=== PATIENT | male | born 1935 | race Caucasian/White ===

== ENCOUNTER → 2016-03-02 | Outpatient (CLI) | payer MEDICARE, OTHER | END | disposition home or self-care (01) | LOC: LABWHC1 09:20 | PROVIDERS: ATTEND Internal Medicine Cardiovascular Disease | DX: E78.5 Hyperlipidemia, unspecified (principal); I25.10 Atherosclerotic heart disease of native coronary artery without angina pectoris | CPT/HCPCS: 36415; 80061; 84439; 84443; 84450; 84460 ==

== ENCOUNTER → 2016-04-22 | Outpatient (CLI) | payer MEDICARE, OTHER ==
[2016-04-22 11:28] LABS: Bilirubin, Delta 0.5 mg/dL (0.0-0.2); Total Bilirubin 1.4 mg/dL (0.2-1.3)
== END | disposition home or self-care (01) ==
LOC: LABWHC1 10:03
PROVIDERS: ATTEND Internal Medicine Cardiovascular Disease
DX: E78.00 Pure hypercholesterolemia, unspecified (principal); R00.1 Bradycardia, unspecified
CPT/HCPCS: 36415; 80061; 80076; 84439; 84443

== ENCOUNTER → 2018-05-04 | Outpatient (CLI) | payer OTHER ==
--- NOTE | 2018-05-04 11:48 | US ---
EXAMINATION TYPE: US thyroid st tissue head/neck DATE OF EXAM: 05/04/2018 COMPARISON: NONE CLINICAL HISTORY: 82-year-old male Hypothyroidism E03.9. TECHNIQUE: Multiple sonographic images of the thyroid gland were obtained. FINDINGS: GLAND SIZE: Right Lobe: 4.4 x 1.9 x 1.0 cm Overall Parenchyma: homogenous Left Lobe: 2.7 x 0.9 x 1.0 cm Overall Parenchyma: homogeneous Isthmus Thickness: 0.8 cm NODULES RIGHT: # of nodules measured on right: 1 1. 1.4 X 1.5 x 1.4 cm heterogeneous solid nodule at the mid pole with well-defined margins. Some p unctate calcifications are present within. This nodule is wider than tall and shows intranodular vasc ularity. LEFT: # of nodules measured on left: 0 ISTHMUS: # of nodules measured in the isthmus: 0 Bilateral neck scanned, no evidence of lymphadenopathy. [employer] notes: Thyroid located inferiorly, difficult to visualized in sagittal plane. IMPRESSION: Solid 1.5 cm nodule in the right lobe has some associated microcalcifications and vascularity. FNA ca n be performed.
== END ==
LOC: RADUSWWP 10:25
DX: E04.1 Nontoxic single thyroid nodule (principal)
CPT/HCPCS: 76536

== ENCOUNTER → 2018-06-15 | Outpatient (CLI) | payer MEDICARE, OTHER ==
[2018-06-15 15:45] LABS: T4, Free (Free Thyroxine) 0.8 ng/dL (0.80-1.80)
== END | disposition home or self-care (01) ==
LOC: LABWHC1 09:19
PROVIDERS: ATTEND Internal Medicine Endocrinology, Diabetes & Metabolism
DX: E04.1 Nontoxic single thyroid nodule (principal)
CPT/HCPCS: 36415; 84439; 84443

== ENCOUNTER → 2018-08-09 | Outpatient (CLI) | payer MEDICARE, OTHER | END | disposition home or self-care (01) | LOC: LABWHC1 14:03 | PROVIDERS: ATTEND Internal Medicine Endocrinology, Diabetes & Metabolism | DX: E03.8 Other specified hypothyroidism (principal); R94.6 Abnormal results of thyroid function studies | CPT/HCPCS: 36415; 84443 ==

== ENCOUNTER → 2018-09-15 | Outpatient (CLI) | payer MEDICARE, OTHER | END | disposition home or self-care (01) | LOC: LABWHC1 10:44 | PROVIDERS: ATTEND Internal Medicine Endocrinology, Diabetes & Metabolism | DX: E03.8 Other specified hypothyroidism (principal) | CPT/HCPCS: 36415; 84443 ==

== ENCOUNTER → 2019-03-14 | Outpatient (CLI) | payer MEDICARE, OTHER ==
--- NOTE | 2019-03-14 16:35 | US ---
EXAMINATION TYPE: US thyroid st tissue head/neck DATE OF EXAM: 03/14/2019 COMPARISON: US 05/04/2018 CLINICAL HISTORY: 83-year-old male E04.1 NONTOXIC SINGLE THYROID NODULES. TECHNIQUE: Multiple sonographic images of the thyroid gland are obtained. 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 1.3 X 0.7 x 0.9 cm mixed, primarily solid nodule at the mid pole with well-defined margins. This nodule is wider than tall. Prior size: 1.5 x 1.4 x 1.4 cm LEFT: # of nodules measured on left: 0 ISTHMUS: # of nodules measured in the isthmus: 0 Bilateral neck scanned, no evidence of lymphadenopathy. IMPRESSION: Small heterogeneous gland, possible goiter or chronic hypothyroidism. A solitary 1.3 cm nodule right mid pole is stable to slightly smaller.
== END | disposition home or self-care (01) ==
LOC: RADUSWWP 13:35
PROVIDERS: ATTEND Internal Medicine Endocrinology, Diabetes & Metabolism
DX: E04.1 Nontoxic single thyroid nodule (principal); E03.8 Other specified hypothyroidism
CPT/HCPCS: 76536; 84443

== ENCOUNTER 2021-03-30 12:28 | Inpatient (IN) | payer MEDICARE, OTHER ==
[2021-03-30] MEDS ORDERED: ASPIRIN 81 MG PO STA (12:39)
[2021-03-30] MEDS ORDERED: SODIUM CHLORIDE 0.9% 1,000 ML IV STA (12:39)
--- NOTE | 2021-03-30 12:42 | ED ---
General Adult HPI - General Stated complaint: Chest Pain Time Seen by Provider: 03/30/21 12:35 Source: patient, RN notes reviewed Mode of arrival: EMS Limitations: no limitations - History of Present Illness Initial comments: Patient is a pleasant 85-year-old male presenting to the emergency department with chest discomfort. Onset was prior to arrival. Patient is a poor historian and very hard of hearing. Patient admits symptoms improved with nitroglycerin by EMS. Discomfort is minimal at this time. Discomfort is somewhat similar to previous heart problems. Patient has difficulty describing type of discomfort he has. No radiation. No associated dyspnea, nausea, or diaphoresis. EMS did have concerns for bradycardia and hypotension following nitroglycerin and did provide atropine and fluid bolus. - Related Data Home Medications Medication Instructions Recorded Confirmed Metoprolol Tartrate [Lopressor] 50 mg PO BID 12/13/15 12/13/15 Pravastatin Sodium [Pravachol] 40 mg PO HS 12/13/15 12/13/15 amLODIPine [Norvasc] 10 mg PO DAILY 12/13/15 12/13/15 lisinopriL [Zestril] 20 mg PO DAILY 12/13/15 12/13/15 Previous Rx's Medication Instructions Recorded Amiodarone [Cordarone] 400 mg PO BID #60 tab 12/17/15 Aspirin 81 mg PO DAILY #30 chew 12/17/15 Atorvastatin [Lipitor] 80 mg PO DAILY #30 tab 12/17/15 Clopidogrel [Plavix] 75 mg PO DAILY #30 tab 12/17/15 Nitroglycerin Sl Tabs [Nitrostat] 0.4 mg SUBLINGUAL Q5M PRN #25 tab 12/17/15 Spironolactone [Aldactone] 25 mg PO DAILY #30 tab 12/17/15 Allergies Allergy/AdvReac Type Severity Reaction Status Date / Time No Known Allergies Allergy Verified 03/30/21 12:42 Review of Systems ROS Statement: Those systems with pertinent positive or pertinent negative responses have been documented in the HPI. ROS Other: All systems not noted in ROS Statement are negative. Constitutional: Denies: fever Eyes: Denies: eye pain ENT: Denies: ear pain Respiratory: Denies: cough, dyspnea Cardiovascular: Reports: as per HPI, chest pain Endocrine: Denies: fatigue Gastrointestinal: Denies: abdominal pain Genitourinary: Denies: dysuria Musculoskeletal: Denies: back pain Skin: Denies: rash Neurological: Denies: weakness Past Medical History Past Medical History: Coronary Artery Disease (CAD), Hyperlipidemia, Hypertensio n Additional Past Medical History / Comment(s): Diverticulosis, benign colon polyp removed, nephrolithiasis-has passed stones on his own, bilateral tinnitis. Last Myocardial Infarction Date:: 1994 History of Any Multi-Drug Resistant Organisms: None Reported Past Surgical History: Coronary Bypass/CABG Additional Past Surgical History / Comment(s): 2 vessel CABG Past Anesthesia/Blood Transfusion Reactions: No Reported Reaction Past Psychological History: No Psychological Hx Reported Past Alcohol Use History: Occasional Past Drug Use History: None Reported - Past Family History Father Family Medical History: Myocardial Infarction (SD) Additional Family Medical History / Comment(s): Father of a SD at an "early age" but age is unknown. Mother Family Medical History: Dementia General Exam Limitations: no limitations General appearance: alert, in no apparent distress Head exam: Present: normocephalic Eye exam: Present: normal appearance Neck exam: Present: normal inspection Respiratory exam: Present: normal lung sounds bilaterally. Absent: chest wall tenderness Cardiovascular Exam: Present: regular rate, normal rhythm, normal heart sounds Expanded Peripheral pulses: 2+: Radial (R), Radial (L), Posterior Tibialis (R), Posterior Tibialis (L) GI/Abdominal exam: Present: soft. Absent: tenderness Extremities exam: Present: normal inspection. Absent: pedal edema, calf tendern ess Neurological exam: Present: alert Psychiatric exam: Present: normal affect, normal mood Skin exam: Present: normal color Course Vital Signs 03/30/21 12:32 Temperature 97.8 F Pulse Rate 64 Respiratory 16 Rate Blood Pressure 94/58 O2 Sat by Pulse 99 Oximetry EKG Findings - EKG Comments: EKG Findings:: Sinus rhythm with rate of 64. RI 118. Left axis. QRS 114. QT 450. QTC 459. Incomplete right bundle-branch block. No acute ST change. Medical Decision Making - Medical Decision Making Patient reevaluated and resting comfortably in bed. Patient and family updated on results and plan. Case was discussed Dr. whitlock who did evaluate patient and will admit covering for sd - Lab Data Result diagrams: 03/30/21 12:47 03/30/21 12:47 Lab Results 03/30/21 03/30/2103/30/22 Range/Units 12:47 12:47 12:47 WBC 9.2 (3.8-10.6) k/uL RBC 3.92 L (4.30-5.90) m/uL Hgb 13.2 (13.0-17.5) gm/dL Hct 38.3 L (39.0-53.0) % MCV 97.9 (80.0-100.0) fL MCH 33.8 (25.0-35.0) pg MCHC 34.5 (31.0-37.0) g/dL RDW 12.4 (11.5-15.5) % Plt Count 157 (150-450) k/uL MPV 8.6 Neutrophils % 88 % Lymphocytes % 6 % Monocytes % 4 % Eosinophils % 1 % Basophils % 1 % Neutrophils # 8.0 H (1.3-7.7) k/uL Lymphocytes # 0.5 L (1.0-4.8) k/uL Monocytes # 0.4 (0-1.0) k/uL Eosinophils # 0.1 (0-0.7) k/uL Basophils # 0.1 (0-0.2) k/uL PT 11.7 (9.0-12.0) sec INR 1.1 (<1.2) APTT 25.0 (22.0-30.0) sec Sodium 134 L (137-145) mmol/L Potassium 4.5 (3.5-5.1) mmol/L Chloride 102 (98-107) mmol/L Carbon Dioxide 24 (22-30) mmol/L Anion Gap 8 mmol/L BUN 23 H (9-20) mg/dL Creatinine 1.48 H (0.66-1.25) mg/dL Est GFR (CKD-EPI)AfAm 50 (>60 ml/min/1.73 sqM) Est GFR (CKD-EPI)NonAf 43 (>60 ml/min/1.73 sqM) Glucose 107 H (74-99) mg/dL Calcium 8.3 L (8.4-10.2) mg/dL Magnesium 1.9 (1.6-2.3) mg/dL Total Bilirubin 1.6 H (0.2-1.3) mg/dL AST 62 H (17-59) U/L ALT 35 (4-49) U/L Alkaline Phosphatase 67 (38-126) U/L Troponin I (0.000-0.034) ng/mL Total Protein 5.9 L (6.3-8.2) g/dL Albumin 3.4 L (3.5-5.0) g/dL 03/30/21 Range/Units 12:47 WBC (3.8-10.6) k/uL RBC (4.30-5.90) m/uL Hgb (13.0-17.5) gm/dL Hct (39.0-53.0) % MCV (80.0-100.0) fL MCH (25.0-35.0) pg MCHC (31.0-37.0) g/dL RDW (11.5-15.5) % Plt Count (150-450) k/uL MPV Neutrophils % % Lymphocytes % % Monocytes % % Eosinophils % % Basophils % % Neutrophils # (1.3-7.7) k/uL Lymphocytes # (1.0-4.8) k/uL Monocytes # (0-1.0) k/uL Eosinophils # (0-0.7) k/uL Basophils # (0-0.2) k/uL PT (9.0-12.0) sec INR (<1.2) APTT (22.0-30.0) sec Sodium (137-145) mmol/L Potassium (3.5-5.1) mmol/L Chloride (98-107) mmol/L Carbon Dioxide (22-30) mmol/L Anion Gap mmol/L BUN (9-20) mg/dL Creatinine (0.66-1.25) mg/dL Est GFR (CKD-EPI)AfAm (>60 ml/min/1.73 sqM) Est GFR (CKD-EPI)NonAf (>60 ml/min/1.73 sqM) Glucose (74-99) mg/dL Calcium (8.4-10.2) mg/dL Magnesium (1.6-2.3) mg/dL Total Bilirubin (0.2-1.3) mg/dL AST (17-59) U/L ALT (4-49) U/L Alkaline Phosphatase (38-126) U/L Troponin I <0.012 (0.000-0.034) ng/mL Total Protein (6.3-8.2) g/dL Albumin (3.5-5.0) g/dL - Radiology Data Radiology results: image reviewed Disposition Clinical Impression: Chest pain Disposition: ADMITTED IP TO THIS HOSP Is patient prescribed a controlled substance at d/c from ED?: No Referrals: [facility],Clinic [Primary Care Provider] - 1-2 days Decision Time: 13:54
[2021-03-30 12:59] LABS: Basophils # (A) 0.1 k/uL (0-0.2); Basophils % (A) 1 %; Eosinophils # (A) 0.1 k/uL (0-0.7); Eosinophils % (A) 1 %; HCT 38.3 % (39.0-53.0); HGB 13.2 gm/dL (13.0-17.5); Lymphocytes # (A) 0.5 k/uL (1.0-4.8); Lymphocytes % (A) 6 %; MCH 33.8 pg (25.0-35.0); MCHC 34.5 g/dL (31.0-37.0); MCV 97.9 fL (80.0-100.0); Mean Platelet Volume 8.6; Monocytes # (A) 0.4 k/uL (0-1.0); Monocytes % (A) 4 %; Neutrophils % (A) 88 %; Platelet Count 157 k/uL (150-450); RBC 3.92 m/uL (4.30-5.90); RDW 12.4 % (11.5-15.5); WBC 9.2 k/uL (3.8-10.6)
[2021-03-30 13:07] LABS: INR 1.1 (<1.2); Prothrombin Time 11.7 sec (9.0-12.0)
[2021-03-30 13:14] LABS: Albumin 3.4 g/dL (3.5-5.0); Calcium 8.3 mg/dL (8.4-10.2); Magnesium 1.9 mg/dL (1.6-2.3); Potassium 4.5 mmol/L (3.5-5.1); Total Bilirubin 1.6 mg/dL (0.2-1.3); Total Protein 5.9 g/dL (6.3-8.2)
[2021-03-30] MEDS ORDERED: NITROGLYCERIN SL TABS 0.4 MG TAB SUBLINGUAL PRN (13:55)
--- NOTE | 2021-03-30 14:00 | XR ---
EXAMINATION TYPE: XR chest 2V DATE OF EXAM: 03/30/2021 COMPARISON: 12/15/2015 HISTORY: 85-year-old male with chest pain TECHNIQUE: AP and lateral views FINDINGS: Low lung volumes and crowded vascular markings. Heart mildly enlarged. Median sternotomy wires are pr esent. Interstitial and vascular prominence. Atherosclerotic arch calcifications. No sizable pleural effusion. IMPRESSION: Hypoventilatory changes. Increased interstitial densities. Correlate to exclude mild pulmonary vascul ar congestion versus bronchitis or atypical pneumonia.
[2021-03-30] MEDS ORDERED: METOPROLOL TARTRATE 25 MG TAB PO PRN (18:24)
--- NOTE | 2021-03-30 18:56 | P.HPIM ---
History of Present Illness This is a pleasant 85 years old male with past medical history of Coronary Artery Disease , Hyperlipidemia, Hypertension, Diverticulosis, benign colon polyp removed, nephrolithiasis-has passed stones on his own, bilateral tinnitis. Patient is poor historian and information was obtained from the at bedside As per patient has significant history of dementia which was really worse over the last 2 years as she describes. A he came approached her stated that he has pain referring to his chest and epigastric area, as per it is not known for him to complain about pain so she got concerned and brought him to the emergency room He was lying in bed, answers with 1 or 2 words with low voice, he knows he is in the hospital at [place] but he could not tell the name of the hospital. He could not tell the date or the year or the name of the president, as per that his baseline. He hardly couldn't provide information however when we asked him me and he confirmed gas he doesn't have chest pain now. He denies any other symptoms, no dyspnea, no diarrhea or dysuria or fever. Patient Vitas looks stable CBC is unremarkable INR is normal at 1.1 Creatinine is elevated at 1.4, baseline is unknown, last creatinine was 0.7 and 2016. Sodium 134, potassium 4.5, bilirubin 1.6, AST slightly high at 62, normal ALT of 35. If less than 0.012 3. Coronavirus not detected. Chest x-ray: Hypoventilatory changes. Increased interstitial densities. Correlate to exclude my pulmonary vascular congestion versus bronchitis or atypical pneumonia Review of Systems Review of systems CONSTITUTIONAL: No fever, no malaise, no fatigue. HEENT: No recent visual problems or hearing problems. Denied any sore throat. CARDIOVASCULAR: No orthopnea, PND, no palpitations, no syncope. PULMONARY: No shortness of breath, no cough, no hemoptysis. GASTROINTESTINAL: No diarrhea, no nausea, no vomiting, no abdominal pain. Normoactive bowel sounds. NEUROLOGICAL: No headaches, no weakness, no numbness. HEMATOLOGICAL: Denies any bleeding or petechiae. GENITOURINARY: Denies any burning micturition, frequency, or urgency. MUSCULOSKELETAL/RHEUMATOLOGICAL: Denies any joint pain, swelling, or any muscle pain. ENDOCRINE: Denies any polyuria or polydipsia. Past Medical History Past Medical History: Coronary Artery Disease (CAD), Hyperlipidemia, Hypertension Additional Past Medical History / Comment(s): Diverticulosis, benign colon polyp removed, nephrolithiasis-has passed stones on his own, bilateral tinnitis. Last Myocardial Infarction Date:: 1994 History of Any Multi-Drug Resistant Organisms: None Reported Past Surgical History: Coronary Bypass/CABG Additional Past Surgical History / Comment(s): 2 vessel CABG Past Anesthesia/Blood Transfusion Reactions: No Reported Reaction Past Psychological History: No Psychological Hx Reported Past Alcohol Use History: Occasional Past Drug Use History: None Reported - Past Family History Father Family Medical History: Myocardial Infarction (NV) Additional Family Medical History / Comment(s): Father of a NV at an "early age" but age is unknown. Mother Family Medical History: Dementia Medications and Allergies Home Medications Medication Instructions Recorded Confirmed Type lisinopriL [Zestril] 20 mg PO BID 12/13/15 03/30/21 History Spironolactone [Aldactone] 25 mg PO DAILY #30 tab 12/17/15 03/30/21 Rx Amiodarone [Cordarone] 100 mg PO DAILY 03/30/21 03/30/21 History Apixaban [Eliquis] 5 mg PO BID 03/30/21 03/30/21 History Aspirin EC [Ecotrin Low Dose] 81 mg PO DAILY 03/30/21 03/30/21 History Atorvastatin [Lipitor] 40 mg PO HS 03/30/21 03/30/21 History Escitalopram Oxalate [Lexapro] 10 mg PO DAILY 03/30/21 03/30/21 History Furosemide [Lasix] 20 mg PO BID@0900,1400 03/30/21 03/30/21 History Levothyroxine Sodium [Synthroid] 125 mcg PO [id number] 03/30/21 03/30/21 History Melatonin 5 mg PO HS 03/30/21 03/30/21 History Metoprolol Tartrate [Lopressor] 25 mg PO BID PRN 03/30/21 03/30/21 History Multivitamins, Thera [Multivitamin 1 tab PO DAILY 03/30/21 03/30/21 History (formulary)] Nitroglycerin Sl Tabs [Nitrostat] 0.4 mg SL Q5M PRN 03/30/21 03/30/21 History [place]-3 Fatty Acids/Fish Oil [Fish 1 cap PO DAILY 03/30/21 03/30/21 History Oil 1,000 mg Softgel] Allergies Allergy/AdvReac Type Severity Reaction Status Date / Time No Known Allergies Allergy Verified 03/30/21 14:48 Physical Exam Vitals: Vital Signs Temp Pulse Resp BP Pulse Ox 03/30/21 12:32 97.8 F 64 16 94/58 99 Intake and Output 03/30/21 03/30/21 03/30/21 06:59 14:59 22:59 Other: Weight 90 kg -GENERAL: The patient is alert and oriented x1 partially to place. This is his baseline as per ,, not in any acute distress. Well developed, well nourished. HEENT: Pupils are round and equally reacting to light. EOMI. No scleral icterus. No conjunctival pallor. Normocephalic, atraumatic. No pharyngeal erythema. No thyromegaly. CARDIOVASCULAR: S1 and S2 present. No murmurs, rubs, or gallops. PULMONARY: Chest is clear to auscultation, no wheezing or crackles. ABDOMEN: Soft, nontender, nondistended, normoactive bowel sounds. No palpable organomegaly. MUSCULOSKELETAL: No joint swelling or deformity. EXTREMITIES: No cyanosis, clubbing, or pedal edema. NEUROLOGICAL: Gross neurological examination did not reveal any focal deficits. SKIN: No rashes. no petechiae. Results CBC & Chem 7: 03/30/21 12:47 03/30/21 12:47 Labs: Abnormal Lab Results - Last 24 Hours (Table) 03/30/21 03/30/21 Range/Units 12:47 12:47 RBC 3.92 L (4.30-5.90) m/uL Hct 38.3 L (39.0-53.0) % Neutrophils # 8.0 H (1.3-7.7) k/uL Lymphocytes # 0.5 L (1.0-4.8) k/uL Sodium 134 L (137-145) mmol/L BUN 23 H (9-20) mg/dL Creatinine 1.48 H (0.66-1.25) mg/dL Glucose 107 H (74-99) mg/dL Calcium 8.3 L (8.4-10.2) mg/dL Total Bilirubin 1.6 H (0.2-1.3) mg/dL AST 62 H (17-59) U/L Total Protein 5.9 L (6.3-8.2) g/dL Albumin 3.4 L (3.5-5.0) g/dL Assessment and Plan Assessment: Chest pain, rule out cardiac causes Elevated creatinine unknown baseline, could be acute versus chronic kidney disease Altered mental status, ongoing for 2 years as per . 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 Continue same treatment. Continue with symptomatic treatment. Resume home medication. Monitor lytes and vitals. DVT and GI prophylaxis. Further recommendations as per clinical course of the patient DVT prophylaxis: Subcutaneous heparin GI Prophylaxis: Pepcid PT/OT: Pending Prognosis is guarded
[2021-03-30] MEDS ORDERED: ACETAMINOPHEN TAB 325 MG TAB PO PRN (19:55)
[2021-03-30] MEDS: TAMSULOSIN 0.4 MG CAP.ER.24H PO SCH (20:04)
[2021-03-30] MEDS ORDERED: lisinopriL 20 MG TAB PO SCH (21:00)
[2021-03-30] MEDS: APIXABAN 5 MG TAB PO SCH (21:02)
[2021-03-30] MEDS: MELATONIN 5 MG TABLET PO SCH (21:02)
[2021-03-30] MEDS: ATORVASTATIN 40 MG TAB PO SCH (21:02)
[2021-03-31 00:02] LABS: Appearance,Urine Cloudy (Clear); Bacteria,Urine Rare /hpf; Bilirubin,Urine Negative (Negative); Blood,Urine Small (Negative); Color,Urine Dark Yellow; Glucose,Urine (UA) Negative (Negative); Hyaline Casts,Urine 5 /lpf (0-2); Ketones,Urine Negative (Negative); Leukocyte Esterase,Urine Trace (Negative); Mucus,Urine Rare /hpf; Nitrite,Urine Negative (Negative); Protein,Urine Trace (Negative); RBC,Urine 8 /hpf (0-5); Specific Gravity,Urine 1.017 (1.001-1.035); Squamous Epithelial Cell,Urine 1 /hpf (0-4); WBC,Urine 8 /hpf (0-5)
[2021-03-31] MEDS: LEVOTHYROXINE 125 MCG TAB PO SCH (06:03)
[2021-03-31 06:21] LABS: HCT 35.8 % (39.0-53.0); HGB 12.4 gm/dL (13.0-17.5); MCHC 34.6 g/dL (31.0-37.0); MCV 98.2 fL (80.0-100.0); Mean Platelet Volume 8.6; Platelet Count 118 k/uL (150-450); RBC 3.64 m/uL (4.30-5.90); RDW 12.6 % (11.5-15.5); WBC 14.3 k/uL (3.8-10.6)
[2021-03-31 06:55] LABS: Band Neutrophils % 24 %; Lymphocytes # (M) 0.43 k/uL (1.0-4.8); Monocytes # (M) 0.57 k/uL (0-1.0); Neutrophils % (M) 69 %; Nucleated Red Blood Cells 0 /100 WBC (0-0)
[2021-03-31 06:56] LABS: Total Cells Counted 200
[2021-03-31 06:57] LABS: Toxic Granulation Present
[2021-03-31] MEDS ORDERED: SODIUM CHLORIDE 0.9% 500 ML 500 ML IV ONE (07:09)
[2021-03-31] MEDS ORDERED: SODIUM CHLORIDE 0.9% 500 ML 250 ML IV ONE (07:16)
[2021-03-31] MEDS: SODIUM CHLORIDE 0.9% 1,000 ML IV SCH ×2 (08:05→20:07)
[2021-03-31] MEDS: APIXABAN 5 MG TAB PO SCH (08:06)
[2021-03-31] MEDS: MULTIVITAMINS, THERA 1 EACH TAB PO SCH (08:06)
[2021-03-31] MEDS: AMIODARONE 100 MG TAB PO SCH (08:06)
[2021-03-31] MEDS: ESCITALOPRAM 10 MG TAB PO SCH (08:06)
[2021-03-31] MEDS ORDERED: ASPIRIN 81 MG PO SCH (09:00)
[2021-03-31] MEDS ORDERED: ASPIRIN 325 MG TAB PO SCH (09:00)
[2021-03-31] MEDS ORDERED: DOXYCYCLINE 100 MG in SODIUM CHLORIDE 0.9% 100 ML IVPB SCH (09:00)
[2021-03-31] MEDS ORDERED: SPIRONOLACTONE 25 MG TAB PO SCH (09:00)
[2021-03-31] MEDS ORDERED: NON FORMULARY DRUG (Omega-3 Fatty Acids/Fish Oil [Fish Oil 1,000 Mg Softgel] 1 EACH Capsul PO SCH (09:00)
[2021-03-31] MEDS: FUROSEMIDE 20 MG TAB PO SCH ×2 (09:41→15:10)
[2021-03-31] MEDS ORDERED: CEFEPIME 2 GM in SODIUM CHLORIDE 0.9% 100 ML IVPB SCH (09:45)
--- NOTE | 2021-03-31 09:55 | P.CRDCN ---
History of Present Illness History of present illness: HISTORY OF PRESENTING ILLNESS This is a pleasant 85-year-old male past medical history significant for coronary artery disease s/p CABG (AUGUSTINE to LAD and SVG to diagonal) in 1994, PCI to mid D1 and PCI of SVG to D1 in 2016, hypertension, dyslipidemia, type 2 diabetes, former nicotine dependence, dementia, paroxysmal atrial fibrillation on Eliquis, hypothyroidism. He follows in the office with Dr. Teixeira. We have been asked to see in consultation for chest pain. Patient's at [facility]. Patient unable to communicate why he is in the hospital. Information obtained from patient's . Patient's states yesterday patient was complaining of epigastric pain radiating to his upper abdomen. He also had nausea with an episode of emesis. In addition, she has noticed he has been having symptoms of increased confusion, productive cough, chills, some increased shortness of breath with activity. She states about 10 days ago patient had an episode of 3 days of chills at home. Here in hospital patient febrile temperature 101.3 She denies any patient complains of lightheadedness, dizziness, palpitations, syncope or near syncope, loss of consciousness, orthopnea or PND, bleeding in urine or stool. DIAGNOSTICS EKG reveals sinus rhythm, heart rate 64, incomplete right bundle branch block, no acute ST ST-T wave abnormalities. Telemetry tracings indicate sinus mechanism Chest xray increased interstitial densities. Laboratory reviewed, WBC 14.3, hemoglobin 12.4, platelets 118, UA positive for UTI, troponin negative 3, COVID-19 negative, sodium 134, potassium 4.5, BUN 23, serum creatinine 1.4, proBNP 522 Most recent echocardiogram 01/2018 revealed an EF 55%, mild mitral regurgitation, mild tricuspid regurgitation Current cardiac medications include lisinopril 20 mg twice a day, spironolactone 25 mg daily, metoprolol tartrate 25 mg twice a day when necessary, Lasix 20 mg twice a day, aspirin 81 mg daily, Eliquis 5 mg twice a day, amiodarone 100 mg daily REVIEW OF SYSTEMS At the time of my exam: CONSTITUTIONAL: Denies fever or chills. CARDIOVASCULAR: Denies chest pain, shortness of breath, orthopnea, PND or palpitations. RESPIRATORY: Denies cough. GASTROINTESTINAL: Denies abdominal pain, diarrhea, constipation, nausea or vomiting. MUSCULOSKELETAL: Denies myalgias. NEUROLOGIC: Denies numbness, tingling, headacbe or weakness. ENDOCRINE: Denies fatigue, weight change, polydipsia or polyurina. GENITOURINARY: Denies burning, hematuria or urgency with micturation. HEMATOLOGIC: Denies history of anemia or bleeding. PHYSICAL EXAMINATION Blood pressure 94/39, heart rate 55, afebrile, oxygen saturation 77% on room air CONSTITUTIONAL: No apparent distress. HEENT: Head is normocephalic. Pupils are equal, round. Sclerae anicteric. Mucous membranes of the mouth are moist. No JVD. CHEST EXAMINATION: Lungs are diminished in the bases to auscultation. No chest wall tenderness is noted on palpation or with deep breathing. HEART EXAMINATION: Regular rate and rhythm. S1, S2 heard. Systolic ejection murmur ABDOMEN: Soft, nontender. Positive bowel sounds. EXTREMITIES: 2+ peripheral pulses, trace bilateral lower extremity edema and no calf tenderness. NEUROLOGIC EXAMINATION: Patient is awake, alert. not oriented ASSESSMENT Epigastric Abdominal pain Fever, Cough, Chills Nausea, Vomiting Acute Kidney Injury Leukocytosis Increased altered mental status Urinary Tract infection History of dementia Coronary artery disease s/p CABG (AUGUSTINE to LAD and SVG to diagonal) in 1994, PCI to mid D1 and PCI of SVG to D1 in 2016 History of hypertension Hypotension Dyslipidemia Type 2 diabetes Former nicotine dependence Paroxysmal atrial fibrillation on Eliquis Hypothyroidism PLAN From a cardiology perspective, patient without chest pain. No further inpatient workup at this time. Pain has been complaining of symptoms of epigastric pain, abdominal pain. Patient also with symptoms of increased confusion per spouse, febrile here, productive cough, chills. Patient's workup revealed acute kidney injury, leukocytosis. Ok to hold lasix and lisinopril due to hypotension and acute kidney. Continue Eliquis, amiodarone and statin. Recommend infectious workup per primary. We will follow the patient as needed. Please reach out with any further questions or concerns Nurse practitioner note has been reviewed by physician. Signing provider agrees with the documented findings, assessment, and plan of care. Past Medical History Past Medical History: Coronary Artery Disease (CAD), Hyperlipidemia, Hypertension Additional Past Medical History / Comment(s): Diverticulosis, benign colon polyp removed, nephrolithiasis-has passed stones on his own, bilateral tinnitis. Last Myocardial Infarction Date:: 1994 History of Any Multi-Drug Resistant Organisms: None Reported Past Surgical History: Coronary Bypass/CABG Additional Past Surgical History / Comment(s): 2 vessel CABG Past Anesthesia/Blood Transfusion Reactions: No Reported Reaction Past Psychological History: No Psychological Hx Reported Past Alcohol Use History: Occasional Past Drug Use History: None Reported - Past Family History Father Family Medical History: Myocardial Infarction (NM) Additional Family Medical History / Comment(s): Father of a NM at an "early age" but age is unknown. Mother Family Medical History: Dementia Medications and Allergies Home Medications Medication Instructions Recorded Confirmed Type lisinopriL [Zestril] 20 mg PO BID 12/13/15 03/30/21 History Spironolactone [Aldactone] 25 mg PO DAILY #30 tab 12/17/15 03/30/21 Rx Amiodarone [Cordarone] 100 mg PO DAILY 03/30/21 03/30/21 History Apixaban [Eliquis] 5 mg PO BID 03/30/21 03/30/21 History Aspirin EC [Ecotrin Low Dose] 81 mg PO DAILY 03/30/21 03/30/21 History Atorvastatin [Lipitor] 40 mg PO HS 03/30/21 03/30/21 History Escitalopram Oxalate [Lexapro] 10 mg PO DAILY 03/30/21 03/30/21 History Furosemide [Lasix] 20 mg PO BID@0900,1400 03/30/21 03/30/21 History Levothyroxine Sodium [Synthroid] 125 mcg PO MOTUWETHFRSA 03/30/21 03/30/21 History Melatonin 5 mg PO HS 03/30/21 03/30/21 History Metoprolol Tartrate [Lopressor] 25 mg PO BID PRN 03/30/21 03/30/21 History Multivitamins, Thera [Multivitamin 1 tab PO DAILY 03/30/21 03/30/21 History (formulary)] Nitroglycerin Sl Tabs [Nitrostat] 0.4 mg SL Q5M PRN 03/30/21 03/30/21 History [place]-3 Fatty Acids/Fish Oil [Fish 1 cap PO DAILY 03/30/21 03/30/21 History Oil 1,000 mg Softgel] Allergies Allergy/AdvReac Type Severity Reaction Status Date / Time No Known Allergies Allergy Verified 03/30/21 14:48 Physical Exam Vitals: Vital Signs Temp Pulse Pulse Resp BP BP Pulse Ox 03/31/21 07:00 97.6 F 55 L 18 94/39 97 03/31/21 02:10 90/44 03/31/21 00:19 98.1 F 72 17 80/38 95 03/30/21 19:00 101.3 F H 81 17 98/55 93 L 03/30/21 16:51 94 L 03/30/21 16:50 88 16 103/61 94 L 03/30/21 14:42 69 18 115/103 96 03/30/21 13:42 67 16 93/65 96 03/30/21 12:32 97.8 F 64 16 94/58 99 Intake and Output 03/30/21 03/31/21 03/31/21 22:59 06:59 14:59 Intake Total 118 Output Total 400 800 Balance -282 -800 Intake: Oral 118 Output: Urine 400 800 Uretheral (Soni) 400 Other: Voiding Method Indwelling Catheter # Bowel Movements 1 Weight 90 kg Results 03/31/21 06:02 03/30/21 12:47 Cardiac Enzymes 03/30/21 03/30/21 03/30/21 Range/Units 12:47 12:47 15:07 AST 62 H (17-59) U/L Troponin I <0.012 <0.012 (0.000-0.034) ng/mL 03/30/21 Range/Units 17:26 AST (17-59) U/L Troponin I <0.012 (0.000-0.034) ng/mL Coagulation 03/30/21 Range/Units 12:47 PT 11.7 (9.0-12.0) sec APTT 25.0 (22.0-30.0) sec CBC 03/30/21 03/31/21 Range/Units 12:47 06:02 WBC 9.2 14.3 H (3.8-10.6) k/uL RBC 3.92 L 3.64 L (4.30-5.90) m/uL Hgb 13.2 12.4 L (13.0-17.5) gm/dL Hct 38.3 L 35.8 L (39.0-53.0) % Plt Count 157 118 L (150-450) k/uL Comprehensive Metabolic Panel 03/30/21 Range/Units 12:47 Sodium 134 L (137-145) mmol/L Potassium 4.5 (3.5-5.1) mmol/L Chloride 102 (98-107) mmol/L Carbon Dioxide 24 (22-30) mmol/L BUN 23 H (9-20) mg/dL Creatinine 1.48 H (0.66-1.25) mg/dL Glucose 107 H (74-99) mg/dL Calcium 8.3 L (8.4-10.2) mg/dL AST 62 H (17-59) U/L ALT 35 (4-49) U/L Alkaline Phosphatase 67 (38-126) U/L Total Protein 5.9 L (6.3-8.2) g/dL Albumin 3.4 L (3.5-5.0) g/dL Current Medications Generic Name Dose Route Start Last Admin Trade Name Freq PRN Reason Stop Dose Admin Acetaminophen 650 mg 03/30/21 19:55 03/30/21 21:02 Acetaminophen Tab 325 Mg Tab PO 650 mg Q6HR PRN Administration Fever and/ or Pain Amiodarone HCl 100 mg 03/31/21 09:00 Amiodarone 100 Mg Tab PO DAILY CUATE Apixaban 5 mg 03/30/21 21:00 03/30/21 21:02 Apixaban 5 Mg Tab PO 5 mg BID CUATE Administration Protocol Aspirin 81 mg 03/31/21 09:00 Aspirin 81 Mg PO DAILY CUATE Atorvastatin Calcium 40 mg 03/30/21 21:00 03/30/21 21:02 Atorvastatin 40 Mg Tab PO 40 mg HS CUATE Administration Escitalopram Oxalate 10 mg 03/31/21 09:00 Escitalopram 10 Mg Tab PO DAILY CUATE Furosemide 20 mg 03/31/21 09:00 Furosemide 20 Mg Tab PO BID@0900,1400 [facility] Ceftriaxone Sodium 1 gm/ 50 mls @ 100 mls/hr 04/01/21 09:00 Sodium Chloride IVPB Q24HR [facility]ATE Doxycycline Hyclate 100 mg/ 100 mls @ 100 mls/hr 03/31/21 09:00 Sodium Chloride IVPB Q12HR [facility] Sodium Chloride 1,000 mls @ 75 mls/hr 03/31/21 07:15 Saline 0.9% IV .[id number] [facility] Levothyroxine Sodium 125 mcg 03/31/21 06:30 03/31/21 06:03 Levothyroxine 125 Mcg Tab PO 125 mcg MOTUWETHFRSA CUATE Administration Lorazepam 0.5 mg 03/30/21 18:24 Lorazepam 2 Mg/Ml Inj IV Q6HR PRN Anxiety Melatonin 5 mg 03/30/21 21:00 03/30/21 21:02 Melatonin 5 Mg Tablet PO 5 mg HS CUATE Administration Metoprolol Tartrate 25 mg 03/30/21 18:24 Metoprolol Tartrate 25 Mg Tab PO BID PRN PULSE OVER 60 Multivitamins 1 each 03/31/21 09:00 Multivitamins, Thera 1 Each Tab PO DAILY [facility]ATE Nitroglycerin 0.4 mg 03/30/21 13:55 Nitroglycerin Sl Tabs 0.4 Mg Tab SUBLINGUAL Q5M PRN Chest Pain Sodium Chloride 10 ml 03/30/21 21:00 03/30/21 23:48 Sodium Chloride 0.9% Flush 10 Ml Syringe IV 10 ml BID CUATE Administration Tamsulosin HCl 0.4 mg 03/30/21 18:30 03/30/21 20:04 Tamsulosin 0.4 Mg Cap.Er.24h PO Not Given PC-SUPPER CUATE Intake and Output 03/30/21 03/31/21 03/31/21 22:59 06:59 14:59 Intake Total 118 Output Total 400 800 Balance -282 -800 Intake: Oral 118 Output: Urine 400 800 Uretheral (Soni) 400 Other: Voiding Method Indwelling Catheter # Bowel Movements 1 Weight 90 kg 03/31/21 06:02 03/30/21 12:47
[2021-03-31 10:24] LABS: Chol/HDL Ratio 2.76 Ratio; LDL Cholesterol,Calculated 45.7 mg/dL (0.0-131.0); VLDL Calculation 12.38 mg/dL (5.00-40.00)
[2021-03-31 10:28] LABS: ALT 683 U/L (10-49); AST 567 U/L (14-35); African American GFR (CKD) 29.1 (60.0-200.0); Albumin 3.4 g/dL (3.8-4.9); Albumin/Globulin Ratio 2.13 (1.60-3.17); Alkaline Phosphatase 106 U/L (41-126); BUN/Creat Ratio 12.61 Ratio (12.00-20.00); Bilirubin, Conjugated 2.82 mg/dL (0.20-0.40); Bilirubin,Unconjugated 0.68 mg/dL (0.20-1.00); Calcium 8.2 mg/dL (8.7-10.3); Carbon Dioxide 19.6 mmol/L (20.0-27.5); Chloride 101 mmol/L (96-109); Globulin 1.6 g/dL (1.6-3.3); Glucose 109 mg/dL (70-110); Non-African American GFR(CKD) 25.1 (60.0-200.0); Potassium 3.9 mmol/L (3.5-5.5); Sodium 132 mmol/L (135-145)
--- NOTE | 2021-03-31 12:01 | ECHOF ---
Referral Reason:Rule out heart disease MEASUREMENTS -------- HEIGHT: 182.9 cm WEIGHT: 89.8 kg BP: RVIDd: 3.3 cm (< 3.3) IVSd: 1.1 cm (0.6 - 1.1) LVIDd: 3.8 cm (3.9 - 5.3) LVPWd: 1.6 cm (0.6 - 1.1) IVSs: 1.4 cm LVIDs: 3.2 cm LVPWs: 1.3 cm Ao Diam: 3.0 cm (2.0 - 3.7) AV Cusp: 1.8 cm (1.5 - 2.6) LA Diam: 4.7 cm (2.7 - 3.8) MV EXCURSION: 19.436 mm (> 18.000) MV EF SLOPE: 86 mm/s (70 - 150) EPSS: 0.6 cm MV E Filemon: 0.69 m/s MV DecT: 265 ms MV A Filemon: 0.64 m/s MV E/A Ratio: 1.08 RAP: 5.00 mmHg RVSP: 30.90 mmHg FINDINGS -------- Sinus rhythm. This was a technically adequate study. LV size, wall thickness and systolic function are normal, with an EF greater than 55%. The left fide tricular size is normal. The right ventricle is normal in size. The left atrial size is normal. The right atrial size is normal. There is mild aortic valve sclerosis. There is no evidence of aortic regurgitation. Mild mitral annular calcification present. Mild mitral regurgitation is present. The tricuspid valve appears structurally normal. Mild tricuspid regurgitation present. Right vent ricular systolic pressure is normal at < 35 mmHg. The pulmonic valve was not well visualized. The aortic root is dilated measuring 3.0cm. Echo free space represents a pericardial fat pad. CONCLUSIONS -------- 1. LV size, wall thickness and systolic function are normal, with an EF greater than 55%. 2. The left atrial size is normal. 3. There is mild aortic valve sclerosis. 4. Mild mitral regurgitation is present. 5. Mild tricuspid regurgitation present. VOTING MACHINE MECHANIC: Ember Pérez RDCS
--- NOTE | 2021-03-31 13:10 | P.GSCN ---
History of Present Illness Consult date: 03/31/21 History of present illness: This is a 85-year-old male admitted to the hospital with chest pain. Urology is consulted for urinary retention. Patient had a Soni catheter placed for urinary retention, amount is unknown. Patient has dementia thus history was limited but per patient family no known voiding issues at baseline. No previous history of retention. The Soni catheter is in place draining clear yellow urine Review of Systems ROS unobtainable: due to mental status Past Medical History Past Medical History: Coronary Artery Disease (CAD), Hyperlipidemia, Hypertension Additional Past Medical History / Comment(s): Diverticulosis, benign colon polyp removed, nephrolithiasis-has passed stones on his own, bilateral tinnitis. Last Myocardial Infarction Date:: 1994 History of Any Multi-Drug Resistant Organisms: None Reported Past Surgical History: Coronary Bypass/CABG Additional Past Surgical History / Comment(s): 2 vessel CABG Past Anesthesia/Blood Transfusion Reactions: No Reported Reaction Past Psychological History: No Psychological Hx Reported Past Alcohol Use History: Occasional Past Drug Use History: None Reported - Past Family History Father Family Medical History: Myocardial Infarction (SC) Additional Family Medical History / Comment(s): Father of a SC at an "early age" but age is unknown. Mother Family Medical History: Dementia Medications and Allergies Home Medications Medication Instructions Recorded Confirmed Type lisinopriL [Zestril] 20 mg PO BID 12/13/15 03/30/21 History Spironolactone [Aldactone] 25 mg PO DAILY #30 tab 12/17/15 03/30/21 Rx Amiodarone [Cordarone] 100 mg PO DAILY 03/30/21 03/30/21 History Apixaban [Eliquis] 5 mg PO BID 03/30/21 03/30/21 History Aspirin EC [Ecotrin Low Dose] 81 mg PO DAILY 03/30/21 03/30/21 History Atorvastatin [Lipitor] 40 mg PO HS 03/30/21 03/30/21 History Escitalopram Oxalate [Lexapro] 10 mg PO DAILY 03/30/21 03/30/21 History Furosemide [Lasix] 20 mg PO BID@0900,1400 03/30/21 03/30/21 History Levothyroxine Sodium [Synthroid] 125 mcg PO MOTUWETHFRSA 03/30/21 03/30/21 History Melatonin 5 mg PO HS 03/30/21 03/30/21 History Metoprolol Tartrate [Lopressor] 25 mg PO BID PRN 03/30/21 03/30/21 History Multivitamins, Thera [Multivitamin 1 tab PO DAILY 03/30/21 03/30/21 History (formulary)] Nitroglycerin Sl Tabs [Nitrostat] 0.4 mg SL Q5M PRN 03/30/21 03/30/21 History [place]-3 Fatty Acids/Fish Oil [Fish 1 cap PO DAILY 03/30/21 03/30/21 History Oil 1,000 mg Softgel] Allergies Allergy/AdvReac Type Severity Reaction Status Date / Time No Known Allergies Allergy Verified 03/30/21 14:48 Surgical - Exam Vital Signs Temp Pulse Resp BP Pulse Ox 97.8 F 64 16 94/58 99 03/30/21 12:32 03/30/21 12:32 03/30/21 12:32 03/30/21 12:32 03/30/21 12:32 - General no distress, no pain - ENT normal nares, normal mucosa - Respiratory normal expansion, normal respiratory effort - Abdomen Abdomen: soft, non tender - Genitourinary Soni in place draining clear yellow urine Results - Labs 03/31/21 06:02 03/31/21 06:02 Abnormal Lab Results - Last 24 Hours (Table) 03/30/21 03/30/21 03/31/21 Range/Units 12:47 23:35 06:02 WBC (3.8-10.6) k/uL RBC (4.30-5.90) m/uL Hgb (13.0-17.5) gm/dL Hct (39.0-53.0) % Plt Count (150-450) k/uL Neutrophils # (Manual) (1.3-7.7) k/uL Lymphocytes # (Manual) (1.0-4.8) k/uL Sodium 134 L 132 L (137-145) mmol/L Carbon Dioxide 19.6 L (20.0-27.5) mmol/L BUN 23 H 29.0 H (9-20) mg/dL Creatinine 1.48 H 2.3 H (0.66-1.25) mg/dL Est GFR (CKD-EPI)AfAm 29.1 L (60.0-200.0) Est GFR (CKD-EPI)NonAf 25.1 L (60.0-200.0) Glucose 107 H (74-99) mg/dL Calcium 8.3 L 8.2 L (8.4-10.2) mg/dL Total Bilirubin 1.6 H 3.50 H (0.2-1.3) mg/dL Conjugated Bilirubin 2.82 H (0.20-0.40) mg/dL AST 62 H 567 H (17-59) U/L ALT 683 H (10-49) U/L Total Protein 5.9 L 5.0 L (6.3-8.2) g/dL Albumin 3.4 L 3.4 L (3.5-5.0) g/dL HDL Cholesterol 33.00 L (40.00-60.00) mg/dL Urine Protein Trace H (Negative) Urine Blood Small H (Negative) Ur Leukocyte Esterase Trace H (Negative) Urine RBC 8 H (0-5) /hpf Urine WBC 8 H (0-5) /hpf Urine Bacteria Rare H (None) /hpf Hyaline Casts 5 H (0-2) /lpf Urine Mucus Rare H (None) /hpf 03/31/ Range/Units 06:02 WBC 14.3 H (3.8-10.6) k/uL RBC 3.64 L (4.30-5.90) m/uL Hgb 12.4 L (13.0-17.5) gm/dL Hct 35.8 L (39.0-53.0) % Plt Count 118 L (150-450) k/uL Neutrophils # (Manual) 13.20 H (1.3-7.7) k/uL Lymphocytes # (Manual) 0.43 L (1.0-4.8) k/uL Sodium (137-145) mmol/L Carbon Dioxide (20.0-27.5) mmol/L BUN (9-20) mg/dL Creatinine (0.66-1.25) mg/dL Est GFR (CKD-EPI)AfAm (60.0-200.0) Est GFR (CKD-EPI)NonAf (60.0-200.0) Glucose (74-99) mg/dL Calcium (8.4-10.2) mg/dL Total Bilirubin (0.2-1.3) mg/dL Conjugated Bilirubin (0.20-0.40) mg/dL AST (17-59) U/L ALT (10-49) U/L Total Protein (6.3-8.2) g/dL Albumin (3.5-5.0) g/dL HDL Cholesterol (40.00-60.00) mg/dL Urine Protein (Negative) Urine Blood (Negative) Ur Leukocyte Esterase (Negative) Urine RBC (0-5) /hpf Urine WBC (0-5) /hpf Urine Bacteria (None) /hpf Hyaline Casts (0-2) /lpf Urine Mucus (None) /hpf Microbiology - Last 24 Hours (Table) 03/30/21 21:10 Blood Culture Gram Stain - Preliminary Blood Blood Culture - Preliminary Escherichia coli 03/30/21 21:10 Blood Culture - Final Blood Diabetes panel 03/30/21 03/31/21 Range/Units 12:47 06:02 Sodium 134 L 132 L (137-145) mmol/L Potassium 4.5 3.9 (3.5-5.1) mmol/L Chloride 102 101 (98-107) mmol/L Carbon Dioxide 24 19.6 L (22-30) mmol/L BUN 23 H 29.0 H (9-20) mg/dL Creatinine 1.48 H 2.3 H (0.66-1.25) mg/dL Glucose 107 H 109 (74-99) mg/dL Calcium 8.3 L 8.2 L (8.4-10.2) mg/dL AST 62 H 567 H (17-59) U/L ALT 35 683 H (4-49) U/L Alkaline Phosphatase 67 106 (38-126) U/L Total Protein 5.9 L 5.0 L (6.3-8.2) g/dL Albumin 3.4 L 3.4 L (3.5-5.0) g/dL Triglycerides 61.90 (0.00-149.00) mg/dL HDL Cholesterol 33.00 L (40.00-60.00) mg/dL Calcium panel 03/30/21 03/31/21 Range/Units 12:47 06:02 Calcium 8.3 L 8.2 L (8.4-10.2) mg/dL Albumin 3.4 L 3.4 L (3.5-5.0) g/dL Pituitary panel 03/30/21 03/31/21 Range/Units 12:47 06:02 Sodium 134 L 132 L (137-145) mmol/L Potassium 4.5 3.9 (3.5-5.1) mmol/L Chloride 102 101 (98-107) mmol/L Carbon Dioxide 24 19.6 L (22-30) mmol/L BUN 23 H 29.0 H (9-20) mg/dL Creatinine 1.48 H 2.3 H (0.66-1.25) mg/dL Glucose 107 H 109 (74-99) mg/dL Calcium 8.3 L 8.2 L (8.4-10.2) mg/dL Adrenal panel 03/30/21 03/31/21 Range/Units 12:47 06:02 Sodium 134 L 132 L (137-145) mmol/L Potassium 4.5 3.9 (3.5-5.1) mmol/L Chloride 102 101 (98-107) mmol/L Carbon Dioxide 24 19.6 L (22-30) mmol/L BUN 23 H 29.0 H (9-20) mg/dL Creatinine 1.48 H 2.3 H (0.66-1.25) mg/dL Glucose 107 H 109 (74-99) mg/dL Calcium 8.3 L 8.2 L (8.4-10.2) mg/dL Total Bilirubin 1.6 H 3.50 H (0.2-1.3) mg/dL AST 62 H 567 H (17-59) U/L ALT 35 683 H (4-49) U/L Alkaline Phosphatase 67 106 (38-126) U/L Total Protein 5.9 L 5.0 L (6.3-8.2) g/dL Albumin 3.4 L 3.4 L (3.5-5.0) g/dL Assessment and Plan Assessment: 85-year-old male with urinary retention, amount is unknown. No previous known history of retention or obstructive symptoms at baseline. -Soni can be removed prior to discharge, at time of Soni removal if PVR is greater than 300 mL then reinsert the Soni and can follow-up in urology as an outpatient, but if less than 300 and can be discharged without a catheter -Continue flomax
[2021-03-31] MEDS: LORazepam 2 MG/ML INJ IV PRN (15:49)
--- NOTE | 2021-03-31 16:50 | P.PN ---
Subjective This is a pleasant 85 years old male with past medical history of Coronary Artery Disease , Hyperlipidemia, Hypertension, Diverticulosis, benign colon polyp removed, nephrolithiasis-has passed stones on his own, bilateral tinnitis. Patient is poor historian and information was obtained from the at bedside As per patient has significant history of dementia which was really worse over the last 2 years as she describes. A he came approached her stated that he has pain referring to his chest and epigastric area, as per it is not known for him to complain about pain so she got concerned and brought him to the emergency room He was lying in bed, answers with 1 or 2 words with low voice, he knows he is in the hospital at [place] but he could not tell the name of the hospital. He could not tell the date or the year or the name of the president, as per that his baseline. He hardly couldn't provide information however when we asked him me and he confirmed gas he doesn't have chest pain now. He denies any other symptoms, no dyspnea, no diarrhea or dysuria or fever. Patient Vitas looks stable CBC is unremarkable INR is normal at 1.1 Creatinine is elevated at 1.4, baseline is unknown, last creatinine was 0.7 and 2016. Sodium 134, potassium 4.5, bilirubin 1.6, AST slightly high at 62, normal ALT of 35. If less than 0.012 3. Coronavirus not detected. Chest x-ray: Hypoventilatory changes. Increased interstitial densities. Correlate to exclude my pulmonary vascular congestion versus bronchitis or atypical pneumonia 03/31/2021 Patient is awake and alert and follow commands however he is still confused, as per this is his baseline with no apparent worsening as she confirms to me today. Patient himself denies any pain, no chest pain or abdominal pain. No coughing or tachypnea. No vomiting or diarrhea. No suprapubic or costovertebral angle tenderness. Yesterday last night Soni catheter was inserted and has dark urine and it. He has no fever but blood pressure was on the low side was this morning 96/51, also last night received lisinopril and other antihypertensive per on-call physician, this morning I stopped his lisinopril and other blood pressure medication give him normal saline bolus and started normal saline at 75 mL/h We will keep monitoring his blood pressure, we'll check lactic acid when necessary as well to help guide therapy. Labs showing leukocytosis of 14,000, platelet 118, hemoglobin 12.4, creatinine actually worsened 1.4 up to 2.3, liver enzymes elevated with AST 567 and ALT 683. Bilirubin is high at 2.8. He has positive blood culture with you colitis, sensitivity is pending Infectious disease in were consulted Last night patient was started on ceftriaxone and doxycycline however antibiotics are adjusted today to cefepime. Also we will check liver and renal ultrasound in view of obstructive uropathy, hypertensive episodes and liver enzymes elevation. Keep holding oral Lasix, hold lisinopril 20 mg twice daily, hold Aldactone Continue with amiodarone and aspirin. Also he is on Eliquis at home. Ejection fraction more than 55% Review of systems CONSTITUTIONAL: No fever, no malaise, no fatigue. HEENT: No recent visual problems or hearing problems. Denied any sore throat. CARDIOVASCULAR: No orthopnea, PND, no palpitations, no syncope. PULMONARY: No shortness of breath, no cough, no hemoptysis. GASTROINTESTINAL: No diarrhea, no nausea, no vomiting, no abdominal pain. Normoactive bowel sounds. Active Medications Generic Name Dose Route Start Last Admin Trade Name Freq PRN Reason Stop Dose Admin Acetaminophen 650 mg 03/30/21 19:55 03/30/21 21:02 Acetaminophen Tab 325 Mg Tab PO 650 mg Q6HR PRN Administration Fever and/ or Pain Amiodarone HCl 100 mg 03/31/21 09:00 03/31/21 08:06 Amiodarone 100 Mg Tab PO 100 mg DAILY CUATE Administration Apixaban 2.5 mg 03/31/21 21:00 Apixaban 2.5 Mg Tablet PO BID CUATE Protocol Atorvastatin Calcium 40 mg 03/30/21 21:00 03/30/21 21:02 Atorvastatin 40 Mg Tab PO 40 mg HS CUATE Administration Escitalopram Oxalate 10 mg 03/31/21 09:00 03/31/21 08:06 Escitalopram 10 Mg Tab PO 10 mg DAILY CUATE Administration Sodium Chloride 1,000 mls @ 75 mls/hr 03/31/21 07:15 03/31/21 08:05 Saline 0.9% IV 75 mls/hr .[id number] CUATE Administration Cefepime HCl 1 gm/ Sodium 50 mls @ 12.5 mls/hr 03/31/21 21:00 Chloride IVPB Q12HR [facility] Levothyroxine Sodium 125 mcg 03/31/21 06:30 03/31/21 06:03 Levothyroxine 125 Mcg Tab PO 125 mcg MOTUWETHFRSA CUATE Administration Lorazepam 0.5 mg 03/30/21 18:24 03/31/21 15:49 Lorazepam 2 Mg/Ml Inj IV 0.5 mg Q6HR PRN Administration Anxiety Melatonin 5 mg 03/30/21 21:00 03/30/21 21:02 Melatonin 5 Mg Tablet PO 5 mg HS CUATE Administration Metoprolol Tartrate 25 mg 03/30/21 18:24 Metoprolol Tartrate 25 Mg Tab PO BID PRN PULSE OVER 60 Multivitamins 1 each 03/31/21 09:00 03/31/21 08:06 Multivitamins, Thera 1 Each Tab PO 1 each DAILY CUATE Administration Nitroglycerin 0.4 mg 03/30/21 13:55 Nitroglycerin Sl Tabs 0.4 Mg Tab SUBLINGUAL Q5M PRN Chest Pain Sodium Chloride 10 ml 03/30/21 21:00 03/31/21 09:41 Sodium Chloride 0.9% Flush 10 Ml Syringe IV Not Given BID CUATE Tamsulosin HCl 0.4 mg 03/30/21 18:30 03/30/21 20:04 Tamsulosin 0.4 Mg Cap.Er.24h PO Not Given PC-SUPPER CUATE Objective - Vital Signs Vital signs: Vital Signs Temp 97.6 F 03/31/21 07:00 Pulse 55 L 03/31/21 08:00 Resp 18 03/31/21 08:00 BP 94/39 03/31/21 07:00 Pulse Ox 97 03/31/21 07:00 Intake & Output 03/30/21 03/31/21 03/31/21 18:59 06:59 18:59 Intake Total 118 Output Total 1200 150 Balance 118 -1200 -150 Weight 90 kg Intake: Oral 118 Output: Urine 1200 150 Uretheral (Soni) 400 150 Other: Voiding Method Indwelling Catheter Indwelling Catheter # Bowel Movements 1 - Exam -GENERAL: The patient is alert and oriented x1 partially to place. This is his baseline as per ,, not in any acute distress. Well developed, well nourished. HEENT: Pupils are round and equally reacting to light. EOMI. No scleral icterus. No conjunctival pallor. Normocephalic, atraumatic. No pharyngeal erythema. No thyromegaly. CARDIOVASCULAR: S1 and S2 present. No murmurs, rubs, or gallops. PULMONARY: Chest is clear to auscultation, no wheezing or crackles. ABDOMEN: Soft, nontender, nondistended, normoactive bowel sounds. No palpable organomegaly. MUSCULOSKELETAL: No joint swelling or deformity. EXTREMITIES: No cyanosis, clubbing, or pedal edema. NEUROLOGICAL: Gross neurological examination did not reveal any focal deficits. SKIN: No rashes. no petechiae. - Labs CBC & Chem 7: 03/31/21 06:02 03/31/21 06:02 Labs: Abnormal Lab Results - Last 24 Hours (Table) 03/30/21 03/30/21 03/30/21 Range/Units 12:47 12:47 23:35 WBC (3.8-10.6) k/uL RBC 3.92 L (4.30-5.90) m/uL Hgb (13.0-17.5) gm/dL Hct 38.3 L (39.0-53.0) % Plt Count (150-450) k/uL Neutrophils # 8.0 H (1.3-7.7) k/uL Neutrophils # (Manual) (1.3-7.7) k/uL Lymphocytes # 0.5 L (1.0-4.8) k/uL Lymphocytes # (Manual) (1.0-4.8) k/uL Sodium 134 L (137-145) mmol/L BUN 23 H (9-20) mg/dL Creatinine 1.48 H (0.66-1.25) mg/dL Glucose 107 H (74-99) mg/dL Calcium 8.3 L (8.4-10.2) mg/dL Total Bilirubin 1.6 H (0.2-1.3) mg/dL AST 62 H (17-59) U/L Total Protein 5.9 L (6.3-8.2) g/dL Albumin 3.4 L (3.5-5.0) g/dL HDL Cholesterol (40.00-60.00) mg/dL Urine Protein Trace H (Negative) Urine Blood Small H (Negative) Ur Leukocyte Esterase Trace H (Negative) Urine RBC 8 H (0-5) /hpf Urine WBC 8 H (0-5) /hpf Urine Bacteria Rare H (None) /hpf Hyaline Casts 5 H (0-2) /lpf Urine Mucus Rare H (None) /hpf 03/31/21 03/31/21 Range/Units 06:02 06:02 WBC 14.3 H (3.8-10.6) k/uL RBC 3.64 L (4.30-5.90) m/uL Hgb 12.4 L (13.0-17.5) gm/dL Hct 35.8 L (39.0-53.0) % Plt Count 118 L (150-450) k/uL Neutrophils # (1.3-7.7) k/uL Neutrophils # (Manual) 13.20 H (1.3-7.7) k/uL Lymphocytes # (1.0-4.8) k/uL Lymphocytes # (Manual) 0.43 L (1.0-4.8) k/uL Sodium (137-145) mmol/L BUN (9-20) mg/dL Creatinine (0.66-1.25) mg/dL Glucose (74-99) mg/dL Calcium (8.4-10.2) mg/dL Total Bilirubin (0.2-1.3) mg/dL AST (17-59) U/L Total Protein (6.3-8.2) g/dL Albumin (3.5-5.0) g/dL HDL Cholesterol 33.00 L (40.00-60.00) mg/dL Urine Protein (Negative) Urine Blood (Negative) Ur Leukocyte Esterase (Negative) Urine RBC (0-5) /hpf Urine WBC (0-5) /hpf Urine Bacteria (None) /hpf Hyaline Casts (0-2) /lpf Urine Mucus (None) /hpf Microbiology - Last 24 Hours (Table) 03/30/21 21:10 Blood Culture Gram Stain - Preliminary Blood 03/30/21 21:10 Blood Culture - Final Blood Assessment and Plan Assessment: Sepsis with leukocytosis and fever Acute urinary tract infection versus pneumonia versus acute cholecystitis of the source of infection Acute cholecystitis is suspected Elevated liver enzymes and bilirubin Acute kidney injury Obstructive uropathy status post Soni catheter placement E coli bacteremia 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, mostly Alzheimer dementia History of coronary artery disease Hypertension Hyperlipidemia History of diverticulosis History of nephrolithiasis Plan: This is a pleasant 85 years old male who presents with chest pain Continue with cefepime and follow-up ID team recommendation Check liver and renal ultrasound Monitor liver function tests and creatinine If worsening creatinine will consider nephrology consult, if worsening liver enzymes were considerable GI consult, or surgery there is evidence of cholecystitis Continue with aspirin Continue with IV hydration and monitor lactic acid, blood pressure heart rate, input and output Follow-up plan is also blood culture Labs and medication were reviewed.. Continue same treatment. Continue with symptomatic treatment. Resume home medication. Monitor lytes and vitals. DVT and GI prophylaxis. Further recommendations as per clinical course of the patient DVT prophylaxis: Eliquis GI Prophylaxis: Pepcid PT/OT: Pending Prognosis continues to be guarded
[2021-03-31] MEDS: MIDODRINE 5 MG TAB PO SCH (17:52)
[2021-03-31] MEDS: TAMSULOSIN 0.4 MG CAP.ER.24H PO SCH (17:52)
[2021-03-31] MEDS: ATORVASTATIN 40 MG TAB PO SCH (20:06)
[2021-03-31] MEDS: APIXABAN 2.5 MG TABLET PO SCH (20:06)
[2021-03-31] MEDS: MELATONIN 5 MG TABLET PO SCH (20:06)
[2021-03-31] MEDS ORDERED: CEFEPIME 1 GM in SODIUM CHLORIDE 0.9% 50 ML IVPB SCH (21:00)
--- NOTE | 2021-03-31 21:51 | P.CONS ---
History of Present Illness - Reason for Consult Consult date: 03/31/21 bacteremia Requesting physician: Shahzad Lynch - Chief Complaint right upper abd pain and vomiting x 1 day - History of Present Illness History of Present Illness : Patient is 85-year-old male presenting to the ER yesterday afternoon for evaluation of chest discomfort however per discussion with his patient pain has been mostly in the right upper quadrant area that started the day of presentation to the hospital patient did have pain was mostly sharp in nature unable to quantify it did have decreased oral intake and episodes of vomiting after the patient was admitted to the hospital no clear history of any difficulty urination or any burning no short ness of breath or cough and no diarrhea patient on presentation to the hospital did have a fever of 101.3 F patient did have a white count of 14.3 with a left shift BUN and creatinine is elevated as well as liver enzymes urine was very mildly positive schreiber PCR was negative blood cultures are showing a gram- negative bacilli that has prompted this infectious disease consultation patient did have a chest x-ray hypoventilatory changes increased interstitial densities patient was treated with doxycycline and Rocephin infectious disease was consulted for further management of antibiotic therapy, most information has been obtained from review the chart talking to the as the patient himself not having a good historian Review of system: CONSTITUTIONAL: Positive for weakness fever. EYES: No complaint. ENT: No complaint. RESPIRATORY: No complaint. CARDIOVASCULAR: No complaint. GENITOURINARY: No complaint. GASTROINTESTINAL: As per history of present illness. MUSCULOSKELETAL: No complaint. INTEGUMENTARY : No complaint. PSYCHOLOGIC: No complaint. ENDOCRINE: No complaint. NEUROLOGIC: As per history of present illness. Past medical history : Reviewed, documented below Past surgical history : Reviewed, documented below Social history: Reviewed, documented below Medications: Reviewed, as documented below EXAMINATION: Vital sigans= Reviewed and documented below GENERAL DESCRIPTION: Elderly male lying in bed, no distress. No tachypnea or accessory muscle of respiration use. HEENT: Shows Pallor , no scleral icterus. Oral mucous membrane is dry. NECK: Trachea central, no thyromegaly. LUNGS: Unlabored breathing. Decreased breath sound at the base. No wheeze or crackle. HEART: S1, S2, regular rate and rhythm. ABDOMEN: Soft, no tenderness , guarding or rigidity EXTREMITIES: No edema feet SKIN: No rash, no masses palpable. NEUROLOGICAL: The patient is awake, alert, oriented x2, mood and affect normal. LABS AND RADIOLOGY: Reviewed results see below Assessment : Patient presented to hospital with sepsis in this we did have fever elevated white count source is likely hepatobiliary in this patient did have elevated liver enzymes and presenting symptom has been right upper quadrant pain with vomiting and will need to call for the enteric gram-negative now with ev idence of positive blood culture with a gram-negative bacilli Plan: 1-we will obtain ultrasound of the abdomen to rule out gallbladder disease 2-switch antibiotic to cefepime 2 g every 8 hourly while waiting for the sensitivity to finalize 3-gentle IV fluid We will follow on clinical condition and cultures to further adjust medication if needed Thank you for this consultation we will follow the patient along with you Past Medical History Past Medical History: Coronary Artery Disease (CAD), Hyperlipidemia, Hypertension Additional Past Medical History / Comment(s): Diverticulosis, benign colon polyp removed, nephrolithiasis-has passed stones on his own, bilateral tinnitis. Last Myocardial Infarction Date:: 1994 History of Any Multi-Drug Resistant Organisms: None Reported Past Surgical History: Coronary Bypass/CABG Additional Past Surgical History / Comment(s): 2 vessel CABG Past Anesthesia/Blood Transfusion Reactions: No Reported Reaction Past Psychological History: No Psychological Hx Reported Past Alcohol Use History: Occasional Past Drug Use History: None Reported - Past Family History Father Family Medical History: Myocardial Infarction ([place]) Additional Family Medical History / Comment(s): Father of a [place] at an "early age" but age is unknown. Mother Family Medical History: Dementia Medications and Allergies Home Medications Medication Instructions Recorded Confirmed Type lisinopriL [Zestril] 20 mg PO BID 12/13/15 03/30/21 History Spironolactone [Aldactone] 25 mg PO DAILY #30 tab 12/17/15 03/30/21 Rx Amiodarone [Cordarone] 100 mg PO DAILY 03/30/21 03/30/21 History Apixaban [Eliquis] 5 mg PO BID 03/30/21 03/30/21 History Aspirin EC [Ecotrin Low Dose] 81 mg PO DAILY 03/30/21 03/30/21 History Atorvastatin [Lipitor] 40 mg PO HS 03/30/21 03/30/21 History Escitalopram Oxalate [Lexapro] 10 mg PO DAILY 03/30/21 03/30/21 History Furosemide [Lasix] 20 mg PO BID@0900,1400 03/30/21 03/30/21 History Levothyroxine Sodium [Synthroid] 125 mcg PO MOTUWETHFRSA 03/30/21 03/30/21 History Melatonin 5 mg PO HS 03/30/21 03/30/21 History Metoprolol Tartrate [Lopressor] 25 mg PO BID PRN 03/30/21 03/30/21 History Multivitamins, Thera [Multivitamin 1 tab PO DAILY 03/30/21 03/30/21 History (formulary)] Nitroglycerin Sl Tabs [Nitrostat] 0.4 mg SL Q5M PRN 03/30/21 03/30/21 History Bradford-3 Fatty Acids/Fish Oil [Fish 1 cap PO DAILY 03/30/21 03/30/21 History Oil 1,000 mg Softgel] Allergies Allergy/AdvReac Type Severity Reaction Status Date / Time No Known Allergies Allergy Verified 03/30/21 14:48 Physical Exam Vitals: Vital Signs Temp Pulse Pulse Resp BP BP Pulse Ox 03/31/21 08:00 55 L 18 03/31/21 07:00 97.6 F 55 L 18 94/39 97 03/31/21 02:10 90/44 03/31/21 00:19 98.1 F 72 17 80/38 95 03/30/21 19:00 101.3 F H 81 17 98/55 93 L 03/30/21 16:51 94 L 03/30/21 16:50 88 16 103/61 94 L 03/30/21 14:42 69 18 115/103 96 03/30/21 13:42 67 16 93/65 96 03/30/21 12:32 97.8 F 64 16 94/58 99 Intake and Output 03/30/21 03/31/21 03/31/21 22:59 06:59 14:59 Intake Total 118 Output Total 400 800 150 Balance -282 -800 -150 Intake: Oral 118 Output: Urine 400 800 150 Uretheral (Soni) 400 150 Other: Voiding Method Indwelling Catheter Indwelling Catheter # Bowel Movements 1 Weight 90 kg Results CBC & Chem 7: 03/31/21 06:02 03/31/21 06:02 Labs: Abnormal Lab Results - Last 24 Hours (Table) 03/30/21 03/30/21 03/30/21 Range/Units 12:47 12:47 23:35 WBC (3.8-10.6) k/uL RBC 3.92 L (4.30-5.90) m/uL Hgb (13.0-17.5) gm/dL Hct 38.3 L (39.0-53.0) % Plt Count (150-450) k/uL Neutrophils # 8.0 H (1.3-7.7) k/uL Neutrophils # (Manual) (1.3-7.7) k/uL Lymphocytes # 0.5 L (1.0-4.8) k/uL Lymphocytes # (Manual) (1.0-4.8) k/uL Sodium 134 L (137-145) mmol/L BUN 23 H (9-20) mg/dL Creatinine 1.48 H (0.66-1.25) mg/dL Glucose 107 H (74-99) mg/dL Calcium 8.3 L (8.4-10.2) mg/dL Total Bilirubin 1.6 H (0.2-1.3) mg/dL AST 62 H (17-59) U/L Total Protein 5.9 L (6.3-8.2) g/dL Albumin 3.4 L (3.5-5.0) g/dL Urine Protein Trace H (Negative) Urine Blood Small H (Negative) Ur Leukocyte Esterase Trace H (Negative) Urine RBC 8 H (0-5) /hpf Urine WBC 8 H (0-5) /hpf Urine Bacteria Rare H (None) /hpf Hyaline Casts 5 H (0-2) /lpf Urine Mucus Rare H (None) /hpf 03/31/21 Range/Units 06:02 WBC 14.3 H (3.8-10.6) k/uL RBC 3.64 L (4.30-5.90) m/uL Hgb 12.4 L (13.0-17.5) gm/dL Hct 35.8 L (39.0-53.0) % Plt Count 118 L (150-450) k/uL Neutrophils # (1.3-7.7) k/uL Neutrophils # (Manual) 13.20 H (1.3-7.7) k/uL Lymphocytes # (1.0-4.8) k/uL Lymphocytes # (Manual) 0.43 L (1.0-4.8) k/uL Sodium (137-145) mmol/L BUN (9-20) mg/dL Creatinine (0.66-1.25) mg/dL Glucose (74-99) mg/dL Calcium (8.4-10.2) mg/dL Total Bilirubin (0.2-1.3) mg/dL AST (17-59) U/L Total Protein (6.3-8.2) g/dL Albumin (3.5-5.0) g/dL Urine Protein (Negative) Urine Blood (Negative) Ur Leukocyte Esterase (Negative) Urine RBC (0-5) /hpf Urine WBC (0-5) /hpf Urine Bacteria (None) /hpf Hyaline Casts (0-2) /lpf Urine Mucus (None) /hpf Microbiology - Last 24 Hours (Table) 03/30/21 21:10 Blood Culture Gram Stain - Preliminary Blood 03/30/21 21:10 Blood Culture - Final Blood
[2021-04-01] MEDS: LORazepam 2 MG/ML INJ IV PRN (00:20)
[2021-04-01] MEDS: LEVOTHYROXINE 125 MCG TAB PO SCH (05:33)
[2021-04-01] MEDS: MULTIVITAMINS, THERA 1 EACH TAB PO SCH (08:27)
[2021-04-01] MEDS: APIXABAN 2.5 MG TABLET PO SCH ×2 (08:27→20:27)
[2021-04-01] MEDS: AMIODARONE 100 MG TAB PO SCH (08:27)
[2021-04-01] MEDS: MIDODRINE 5 MG TAB PO SCH ×2 (08:27→17:36)
[2021-04-01] MEDS: ESCITALOPRAM 10 MG TAB PO SCH (08:27)
--- NOTE | 2021-04-01 08:37 | US ---
EXAMINATION TYPE: US abdomen complete DATE OF EXAM: 04/01/2021 COMPARISON: None available CLINICAL HISTORY: elevated LFT ?cholecystitis , urinary retention. Exam done portable EXAM MEASUREMENTS: Liver Length: 16.6 cm Gallbladder Wall: 0.2 cm CBD: 0.4 cm Spleen: 12.0 cm Right Kidney: 12.4 x 5.8 x 5.4 cm Left Kidney: 12.5 x 6.6 x 5.7 cm Pancreas: obscured by overlying midline bowel gas Liver: scanned intercostally, visualized portions appear wnl Gallbladder: 0.9cm echogenic focus Evidence for sonographic Mulligan's sign: n/a CBD: visualized portions wnl, limited by overlying bowel gas Spleen: visualized portions wnl, limited by overlying bowel gas and rib shadowing Right Kidney: wnl Left Kidney: 1.2cm echogenic focus medial mid pole, 2.6cm hypoechoic area medial mid pole Upper IVC: wnl Abd Aorta: proximal and mid portion obscured by overlying midline bowel gas, distal portion wnl Portable technically difficult ultrasound. The pancreas and retroperitoneal structures are suboptimal ly visualized. No definite focal lesion identified in the liver, scanned mainly intercostally. 9 mm e chogenic focus within the gallbladder. No gallbladder wall thickening or pericholecystic fluid. The C BD is partially seen and measures up to 4 mm. Unremarkable visualized portion of the spleen. Thin renal cortex bilaterally. 2.6 cm cyst is seen at the midportion of the left kidney with suspected left renal 1.2 cm nonobstructing calculus versus cor tical calcification. No hydronephrosis bilaterally. No sizable abdominal fluid. IMPRESSION: 1. Technically difficult ultrasound as described above. Gallbladder stone measuring up to 9 mm withou t convincing sonographic evidence of acute cholecystitis, please correlate clinically. 2. Suspected nonobstructing stone in the left kidney measuring 1.2 cm with questionable cyst at the m idpole of the left kidney, suboptimally assessed by this ultrasound. Further imaging can be considered if clinically required.
[2021-04-01 09:16] LABS: Basophils % (A) 0 %; Eosinophils # (A) 0.1 k/uL (0-0.7); Eosinophils % (A) 1 %; HCT 33.9 % (39.0-53.0); HGB 11.7 gm/dL (13.0-17.5); Lymphocytes # (A) 0.5 k/uL (1.0-4.8); Lymphocytes % (A) 6 %; MCH 33.5 pg (25.0-35.0); MCHC 34.6 g/dL (31.0-37.0); MCV 96.9 fL (80.0-100.0); Mean Platelet Volume 9.4; Monocytes # (A) 0.4 k/uL (0-1.0); Monocytes % (A) 6 %; Neutrophils # (A) 6.6 k/uL (1.3-7.7); Neutrophils % (A) 86 %; Platelet Count 120 k/uL (150-450); RBC 3.49 m/uL (4.30-5.90); RDW 12.5 % (11.5-15.5); WBC 7.6 k/uL (3.8-10.6)
--- NOTE | 2021-04-01 11:55 | XR ---
EXAMINATION TYPE: XR chest 1V DATE OF EXAM: 04/01/2021 COMPARISON: Chest x-ray 03/30/2021 HISTORY: Shortness of breath TECHNIQUE: Single frontal view of the chest is obtained. FINDINGS: There is no pleural effusion or pneumothorax seen. Question some minimal patchy basilar d ensity greater on the left. The cardiac silhouette size is stable. Aorta is dense. Patient is post m edian sternotomy. Lung volumes are low. The osseous structures are intact. IMPRESSION: Hypoventilatory change, correlate for basilar atelectasis, follow-up PA and lateral ches t x-ray suggested
--- NOTE | 2021-04-01 13:04 | P.PN ---
Subjective This is a pleasant 85 years old male with past medical history of Coronary Artery Disease , Hyperlipidemia, Hypertension, Diverticulosis, benign colon polyp removed, nephrolithiasis-has passed stones on his own, bilateral tinnitis. Patient is poor historian and information was obtained from the at bedside As per patient has significant history of dementia which was really worse over the last 2 years as she describes. A he came approached her stated that he has pain referring to his chest and epigastric area, as per it is not known for him to complain about pain so she got concerned and brought him to the emergency room He was lying in bed, answers with 1 or 2 words with low voice, he knows he is in the hospital at [facility] but he could not tell the name of the hospital. He could not tell the date or the year or the name of the president, as per that his baseline. He hardly couldn't provide information however when we asked him me and he confirmed gas he doesn't have chest pain now. He denies any other symptoms, no dyspnea, no diarrhea or dysuria or fever. Patient Vitas looks stable CBC is unremarkable INR is normal at 1.1 Creatinine is elevated at 1.4, baseline is unknown, last creatinine was 0.7 and 2016. Sodium 134, potassium 4.5, bilirubin 1.6, AST slightly high at 62, normal ALT of 35. If less than 0.012 3. Coronavirus not detected. Chest x-ray: Hypoventilatory changes. Increased interstitial densities. Correlate to exclude my pulmonary vascular congestion versus bronchitis or atypical pneumonia 03/31/2021 Patient is awake and alert and follow commands however he is still confused, as per this is his baseline with no apparent worsening as she confirms to me today. Patient himself denies any pain, no chest pain or abdominal pain. No coughing or tachypnea. No vomiting or diarrhea. No suprapubic or costovertebral angle tenderness. Yesterday last night Soni catheter was inserted and has dark urine and it. He has no fever but blood pressure was on the low side was this morning 96/51, also last night received lisinopril and other antihypertensive per on-call physician, this morning I stopped his lisinopril and other blood pressure medication give him normal saline bolus and started normal saline at 75 mL/h We will keep monitoring his blood pressure, we'll check lactic acid when necessary as well to help guide therapy. Labs showing leukocytosis of 14,000, platelet 118, hemoglobin 12.4, creatinine actually worsened 1.4 up to 2.3, liver enzymes elevated with AST 567 and ALT 683. Bilirubin is high at 2.8. He has positive blood culture with you colitis, sensitivity is pending Infectious disease in were consulted Last night patient was started on ceftriaxone and doxycycline however antibiotics are adjusted today to cefepime. Also we will check liver and renal ultrasound in view of obstructive uropathy, hypertensive episodes and liver enzymes elevation. Keep holding oral Lasix, hold lisinopril 20 mg twice daily, hold Aldactone Continue with amiodarone and aspirin. Also he is on Eliquis at home. Ejection fraction more than 55% 01/30/2012 Patient was agitated overnight but he is more calm this morning, he still confused which looks close to his baseline. While at bedside confirms these information. He is hemodynamically stable, blood pressure improved 102/58. He is afebrile since admission which is subsided. Rest of Vitas looks stable. The globe in stable 11.4, platelets stable at 120 and obesity came back to normal at 7.6. His creatinine improved to 0.3 down to 1.4, liver enzymes and bilirubin are still pending. E coli and the blood culture is obtained however and the result of sensitivity is still pending Ejection fraction more than 55% Chest x-ray showing basal atelectasis Abdominal ultrasound showin.9 cm gallstone with no gallbladder wall thickening or pericholecystic fluid. The CBD is partially seen. Also there is possible left renal calculus 1.2 cm., Nonobstructing Patient remains on cefepime and Normal saline at 75 mL/h Objective - Vital Signs Vital signs: Vital Signs Temp 97.2 F L 04/01/21 07:37 Pulse 75 04/01/21 07:37 Resp 17 04/01/21 08:49 BP 102/58 04/01/21 07:37 Pulse Ox 95 04/01/21 07:37 Intake & Output 03/31/21 04/01/21 04/01/21 18:59 06:59 18:59 Intake Total 686 118 Output Total 420 750 Balance 266 -750 118 Intake: Intake, IV Titration 50 Amount Cefepime 1 gm In Sodium 50 Chloride 0.9% 50 ml @ 12. 5 mls/hr IVPB Q12HR [facility] Rx#:[id number] Oral 636 118 Output: Urine 420 750 Uretheral (Soni) 150 Other: Voiding Method Indwelling Catheter Indwelling Catheter Indwelling Catheter # Voids 2 # Bowel Movements 1 - Exam -GENERAL: The patient is alert and oriented x1 partially to place. This is his baseline as per ,, not in any acute distress. Well developed, well nourished . HEENT: Pupils are round and equally reacting to light. EOMI. No scleral icterus. No conjunctival pallor. Normocephalic, atraumatic. No pharyngeal erythema. No thyromegaly. CARDIOVASCULAR: S1 and S2 present. No murmurs, rubs, or gallops. PULMONARY: Chest is clear to auscultation, no wheezing or crackles. ABDOMEN: Soft, nontender, nondistended, normoactive bowel sounds. No palpable organomegaly. MUSCULOSKELETAL: No joint swelling or deformity. EXTREMITIES: No cyanosis, clubbing, or pedal edema. NEUROLOGICAL: Gross neurological examination did not reveal any focal deficits. SKIN: No rashes. no petechiae. - Labs CBC & Chem 7: 04/01/21 08:10 04/01/21 11:17 Labs: Abnormal Lab Results - Last 24 Hours (Table) 04/01/21 Range/Units 08:10 RBC 3.49 L (4.30-5.90) m/uL Hgb 11.7 L (13.0-17.5) gm/dL Hct 33.9 L (39.0-53.0) % Plt Count 120 L (150-450) k/uL Lymphocytes # 0.5 L (1.0-4.8) k/uL Microbiology - Last 24 Hours (Table) 03/30/21 21:10 Blood Culture Gram Stain - Preliminary Blood Blood Culture - Preliminary Escherichia coli 03/30/21 21:10 Blood Culture - Final Blood Assessment and Plan Assessment: Sepsis with leukocytosis and fever, improving Acute urinary tract infection versus pneumonia versus acute cholecystitis of the source of infection Gallstones with no evidence clinical or radiological for Acute cholecystitis Elevated liver enzymes and bilirubin, mostly secondary to above Acute kidney injury, improving None obstruction 1.2 left kidney calculus Obstructive uropathy status post Soni catheter placement E coli bacteremia 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, mostly Alzheimer dementia History of coronary artery disease Hypertension Hyperlipidemia History of diverticulosis History of nephrolithiasis Plan: This is a pleasant 85 years old male who presents with chest pain Continue with cefepime and follow-up ID team recommendation Continue with normal saline Monitor liver function tests and creatinine If worsening creatinine will consider nephrology consult, if worsening liver enzymes were considerable GI consult, or surgery there is evidence of cholecystitis Continue with aspirin Follow-up plan is also blood culture Labs and medication were reviewed.. Continue same treatment. Continue with symptomatic treatment. Resume home medication. Monitor lytes and vitals. DVT and GI prophylaxis. Further recommendations as per clinical course of the patient DVT prophylaxis: Eliquis GI Prophylaxis: Pepcid PT/OT: Pending Prognosis continues to be guarded
[2021-04-01 13:11] LABS: African American GFR (CKD) 46.6 (60.0-200.0); Albumin 3.3 g/dL (3.8-4.9); Albumin/Globulin Ratio 1.92 (1.60-3.17); Anion Gap 10.5 mmol/L (10.00-18.00); BUN/Creat Ratio 19.04 Ratio (12.00-20.00); Bilirubin, Conjugated 0.91 mg/dL (0.20-0.40); Bilirubin,Unconjugated 0.46 mg/dL (0.20-1.00); Blood Urea Nitrogen 29.7 mg/dL (9.0-27.0); Calcium 8.3 mg/dL (8.7-10.3); Carbon Dioxide 19.4 mmol/L (20.0-27.5); Globulin 1.7 g/dL (1.6-3.3); Non-African American GFR(CKD) 40.2 (60.0-200.0); Potassium 3.8 mmol/L (3.5-5.5); Total Bilirubin 1.4 mg/dL (0.30-1.20)
[2021-04-01] MEDS: TAMSULOSIN 0.4 MG CAP.ER.24H PO SCH (17:36)
[2021-04-01] MEDS: SODIUM CHLORIDE 0.9% 1,000 ML IV SCH ×2 (17:57→20:28)
[2021-04-01] MEDS: ATORVASTATIN 40 MG TAB PO SCH (20:27)
[2021-04-01] MEDS: MELATONIN 5 MG TABLET PO SCH (20:27)
[2021-04-02] MEDS: LEVOTHYROXINE 125 MCG TAB PO SCH (05:27)
[2021-04-02] MEDS: APIXABAN 2.5 MG TABLET PO SCH ×2 (09:46→20:04)
[2021-04-02] MEDS: MULTIVITAMINS, THERA 1 EACH TAB PO SCH (09:46)
[2021-04-02] MEDS: ESCITALOPRAM 10 MG TAB PO SCH (09:46)
[2021-04-02] MEDS: MIDODRINE 5 MG TAB PO SCH (09:46)
[2021-04-02] MEDS: AMIODARONE 100 MG TAB PO SCH (09:47)
--- NOTE | 2021-04-02 13:03 | P.PN ---
Subjective Progress Note Date: 04/01/21 Principal diagnosis: E. coli bacteremia Patient is 85-year male presented to hospital for chest discomfort and some pain in the right upper quadrant area patient presented to the hospital did have a fever and now with evidence of E. coli bacteremia. On today's evaluation there is 04/01/2021, the patient denies having any fever or any chills, the patient denies having any right upper quadrant abdominal pain no further nausea no meeting no diarrhea he is breathing comfortably on room air and is feeling slightly better Objective - Vital Signs Vital signs: Vital Signs Temp 97.2 F L 04/01/21 07:37 Pulse 75 04/01/21 07:37 Resp 17 04/01/21 08:49 BP 102/58 04/01/21 07:37 Pulse Ox 95 04/01/21 07:37 Intake & Output 03/31/21 04/01/21 04/01/21 18:59 06:59 18:59 Intake Total 686 118 Output Total 420 750 Balance 266 -750 118 Intake: Intake, IV Titration 50 Amount Cefepime 1 gm In Sodium 50 Chloride 0.9% 50 ml @ 12. 5 mls/hr IVPB Q12HR [facility] Rx#:[id number] Oral 636 118 Output: Urine 420 750 Uretheral (Soni) 150 Other: Voiding Method Indwelling Catheter Indwelling Catheter Indwelling Catheter # Voids 2 # Bowel Movements 1 - Exam GENERAL DESCRIPTION: Elderly male lying in bed, no distress. No tachypnea or accessory muscle of respiration use. LUNGS: Unlabored breathing. Clear to auscultation anteriorly. No wheeze or crackle. HEART: S1, S2, regular rate and rhythm. No loud murmur ABDOMEN: Soft, no tenderness , guarding or rigidity, no organomegaly EXTREMITIES: No edema of feet. - Labs CBC & Chem 7: 04/01/21 08:10 04/01/21 11:17 Labs: Abnormal Lab Results - Last 24 Hours (Table) 03/31/21 04/01/21 Range/Units 06:02 08:10 RBC 3.49 L (4.30-5.90) m/uL Hgb 11.7 L (13.0-17.5) gm/dL Hct 33.9 L (39.0-53.0) % Plt Count 120 L (150-450) k/uL Lymphocytes # 0.5 L (1.0-4.8) k/uL Sodium 132 L (135-145) mmol/L Carbon Dioxide 19.6 L (20.0-27.5) mmol/L BUN 29.0 H (9.0-27.0) mg/dL Creatinine 2.3 H (0.6-1.5) mg/dL Est GFR (CKD-EPI)AfAm 29.1 L (60.0-200.0) Est GFR (CKD-EPI)NonAf 25.1 L (60.0-200.0) Calcium 8.2 L (8.7-10.3) mg/dL Total Bilirubin 3.50 H (0.30-1.20) mg/dL Conjugated Bilirubin 2.82 H (0.20-0.40) mg/dL AST 567 H (14-35) U/L ALT 683 H (10-49) U/L Total Protein 5.0 L (6.2-8.2) g/dL Albumin 3.4 L (3.8-4.9) g/dL Microbiology - Last 24 Hours (Table) 03/30/21 21:10 Blood Culture Gram Stain - Preliminary Blood Blood Culture - Preliminary Escherichia coli 03/30/21 21:10 Blood Culture - Final Blood Assessment and Plan (1) E coli bacteremia Current Visit: Yes Status: Acute Code(s): R78.81 - BACTEREMIA; B96.20 - UNSP ESCHERICHIA COLI THE CAUSE OF DISEASES CLASSD [facility] [place] SNOMED Code(s): 296807877696 Plan: Patient with an E. coli bacteremia source likely cholangitis in this we did have elevated liver enzymes and possible passage of a gallstone ultrasound was negative for any features suggestive of cholecystitis and did not show any evidence of hydronephrosis we will get the patient on Rocephin with the plan to finish therapy with oral antibiotics Time with Patient: Less than 30
--- NOTE | 2021-04-02 13:32 | P.PN ---
Subjective This is a pleasant 85 years old male with past medical history of Coronary Artery Disease , Hyperlipidemia, Hypertension, Diverticulosis, benign colon polyp removed, nephrolithiasis-has passed stones on his own, bilateral tinnitis. Patient is poor historian and information was obtained from the at bedside As per patient has significant history of dementia which was really worse over the last 2 years as she describes. A he came approached her stated that he has pain referring to his chest and epigastric area, as per it is not known for him to complain about pain so she got concerned and brought him to the emergency room He was lying in bed, answers with 1 or 2 words with low voice, he knows he is in the hospital at [place] but he could not tell the name of the hospital. He could not tell the date or the year or the name of the president, as per that his baseline. He hardly couldn't provide information however when we asked him me and he confirmed gas he doesn't have chest pain now. He denies any other symptoms, no dyspnea, no diarrhea or dysuria or fever. Patient Vitas looks stable CBC is unremarkable INR is normal at 1.1 Creatinine is elevated at 1.4, baseline is unknown, last creatinine was 0.7 and 2016. Sodium 134, potassium 4.5, bilirubin 1.6, AST slightly high at 62, normal ALT of 35. If less than 0.012 3. Coronavirus not detected. Chest x-ray: Hypoventilatory changes. Increased interstitial densities. Correlate to exclude my pulmonary vascular congestion versus bronchitis or atypical pneumonia 03/31/2021 Patient is awake and alert and follow commands however he is still confused, as per this is his baseline with no apparent worsening as she confirms to me today. Patient himself denies any pain, no chest pain or abdominal pain. No coughing or tachypnea. No vomiting or diarrhea. No suprapubic or costovertebral angle tenderness. Yesterday last night Soni catheter was inserted and has dark urine and it. He has no fever but blood pressure was on the low side was this morning 96/51, also last night received lisinopril and other antihypertensive per on-call physician, this morning I stopped his lisinopril and other blood pressure medication give him normal saline bolus and started normal saline at 75 mL/h We will keep monitoring his blood pressure, we'll check lactic acid when necessary as well to help guide therapy. Labs showing leukocytosis of 14,000, platelet 118, hemoglobin 12.4, creatinine actually worsened 1.4 up to 2.3, liver enzymes elevated with AST 567 and ALT 683. Bilirubin is high at 2.8. He has positive blood culture with you colitis, sensitivity is pending Infectious disease in were consulted Last night patient was started on ceftriaxone and doxycycline however antibiotics are adjusted today to cefepime. Also we will check liver and renal ultrasound in view of obstructive uropathy, hypertensive episodes and liver enzymes elevation. Keep holding oral Lasix, hold lisinopril 20 mg twice daily, hold Aldactone Continue with amiodarone and aspirin. Also he is on Eliquis at home. Ejection fraction more than 55% 01/29/2022 Patient was agitated overnight but he is more calm this morning, he still confused which looks close to his baseline. While at bedside confirms these information. He is hemodynamically stable, blood pressure improved 102/58. He is afebrile since admission which is subsided. Rest of Vitas looks stable. The globe in stable 11.4, platelets stable at 120 and obesity came back to normal at 7.6. His creatinine improved to 0.3 down to 1.4, liver enzymes and bilirubin are still pending. E coli and the blood culture is obtained however and the result of sensitivity is still pending Ejection fraction more than 55% Chest x-ray showing basal atelectasis Abdominal ultrasound showin.9 cm gallstone with no gallbladder wall thickening or pericholecystic fluid. The CBD is partially seen. Also there is possible left renal calculus 1.2 cm., Nonobstructing Patient remains on cefepime and Normal saline at 75 mL/h 04/02/2021 Patient today is a little more awake and interactive as per at bedside, he still drowsy and distal confused which is his baseline as well. No specific complaint. Today he denies any respiratory symptoms, no upper abdominal pain or tenderness, no suprapubic pain and tenderness, no urinary symptoms. Patient is hemodynamically stable. Labs from today are still pending. Patient remains on ceftriaxone 2 g were E. coli and blood culture, sensitivity still pending A 6, lisinopril and Aldactone are still on hold Patient continued on normal saline 75 mL per hour as well as Eliquis 5 mg which is home dose. Objective - Vital Signs Vital signs: Vital Signs Temp 97.7 F 04/02/21 07:16 Pulse 58 L 04/02/21 07:16 Resp 16 04/02/21 09:35 BP 122/74 04/02/21 07:16 Pulse Ox 95 04/02/21 07:16 Intake & Output 04/01/21 04/02/21 04/02/21 18:59 06:59 18:59 Intake Total 336 240 Output Total 580 1200 Balance -244 -1200 240 Intake: Oral 336 240 Output: Urine 580 1200 Other: Voiding Method Indwelling Catheter Indwelling Catheter - Exam -GENERAL: The patient is alert and oriented x1 partially to place. This is his baseline as per ,, not in any acute distress. Well developed, well nourished. HEENT: Pupils are round and equally reacting to light. EOMI. No scleral icterus. No conjunctival pallor. Normocephalic, atraumatic. No pharyngeal erythema. No thyromegaly. CARDIOVASCULAR: S1 and S2 present. No murmurs, rubs, or gallops. PULMONARY: Chest is clear to auscultation, no wheezing or crackles. ABDOMEN: Soft, nontender, nondistended, normoactive bowel sounds. No palpable organomegaly. MUSCULOSKELETAL: No joint swelling or deformity. EXTREMITIES: No cyanosis, clubbing, or pedal edema. NEUROLOGICAL: Gross neurological examination did not reveal any focal deficits. SKIN: No rashes. no petechiae. - Labs CBC & Chem 7: 04/01/21 08:10 04/01/21 11:17 Labs: Abnormal Lab Results - Last 24 Hours (Table) 04/01/21 04/01/21 Range/Units 08:10 11:17 Sodium 134 L (135-145) mmol/L Carbon Dioxide 19.4 L (20.0-27.5) mmol/L BUN 29.7 H (9.0-27.0) mg/dL Creatinine 1.6 H 1.43 H (0.6-1.5) mg/dL Est GFR (CKD-EPI)AfAm 46.6 L (60.0-200.0) Est GFR (CKD-EPI)NonAf 40.2 L (60.0-200.0) Calcium 8.3 L (8.7-10.3) mg/dL Total Bilirubin 1.40 H (0.30-1.20) mg/dL Conjugated Bilirubin 0.91 H (0.20-0.40) mg/dL AST 176 H (14-35) U/L ALT 378 H (10-49) U/L Total Protein 5.0 L (6.2-8.2) g/dL Albumin 3.3 L (3.8-4.9) g/dL Assessment and Plan Assessment: Sepsis with leukocytosis and fever, improving Acute urinary tract infection versus pneumonia versus acute cholecystitis of the source of infection Gallstones with no evidence clinical or radiological for Acute cholecystitis Elevated liver enzymes and bilirubin, mostly secondary to above Acute kidney injury, improving None obstruction 1.2 left kidney calculus Obstructive uropathy status post Soni catheter placement E coli bacteremia 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, mostly Alzheimer dementia History of coronary artery disease Hypertension Hyperlipidemia History of diverticulosis History of nephrolithiasis Plan: This is a pleasant 85 years old male who presents with chest pain Continue with cefepime and follow-up ID team recommendation Continue with normal saline Monitor liver function tests and creatinine If worsening creatinine will consider nephrology consult, if worsening liver enzymes were considerable GI consult, or surgery there is evidence of cholecystitis Continue with aspirin Follow-up plan is also blood culture Labs and medication were reviewed.. Continue same treatment. Continue with symptomatic treatment. Resume home medication. Monitor lytes and vitals. DVT and GI prophylaxis. Further recommendations as per clinical course of the patient DVT prophylaxis: Eliquis GI Prophylaxis: Pepcid PT/OT: Pending Prognosis continues to be guarded
[2021-04-02 15:46] LABS: Basophils % (A) 1 %; Eosinophils # (A) 0.1 k/uL (0-0.7); Eosinophils % (A) 3 %; HCT 38.4 % (39.0-53.0); HGB 12.8 gm/dL (13.0-17.5); Lymphocytes # (A) 0.5 k/uL (1.0-4.8); Lymphocytes % (A) 11 %; MCH 33.4 pg (25.0-35.0); MCHC 33.4 g/dL (31.0-37.0); Mean Platelet Volume 9.1; Monocytes # (A) 0.3 k/uL (0-1.0); Monocytes % (A) 6 %; Neutrophils # (A) 3.5 k/uL (1.3-7.7); Neutrophils % (A) 76 %; Platelet Count 141 k/uL (150-450); RBC 3.84 m/uL (4.30-5.90); RDW 13.1 % (11.5-15.5); WBC 4.7 k/uL (3.8-10.6)
[2021-04-02 16:02] LABS: ALT 241 U/L (4-49); AST 76 U/L (17-59); African American GFR (CKD) 69 (>60 ml/min/1.73 sqM); Albumin 3.1 g/dL (3.5-5.0); Albumin/Globulin Ratio 1.2; Alkaline Phosphatase 90 U/L (38-126); Anion Gap 6 mmol/L; Blood Urea Nitrogen 21 mg/dL (9-20); Calcium 8.8 mg/dL (8.4-10.2); Carbon Dioxide 24 mmol/L (22-30); Chloride 105 mmol/L (98-107); Globulin 2.5 g/dL; Glucose 102 mg/dL (74-99); Non-African American GFR(CKD) 60 (>60 ml/min/1.73 sqM); Potassium 4.6 mmol/L (3.5-5.1); Sodium 135 mmol/L (137-145); Total Bilirubin 0.8 mg/dL (0.2-1.3); Total Protein 5.6 g/dL (6.3-8.2)
[2021-04-02] MEDS: TAMSULOSIN 0.4 MG CAP.ER.24H PO SCH (17:28)
[2021-04-02] MEDS: SODIUM CHLORIDE 0.9% 1,000 ML IV SCH (17:28)
[2021-04-02] MEDS: MELATONIN 5 MG TABLET PO SCH (20:04)
[2021-04-02] MEDS: ATORVASTATIN 40 MG TAB PO SCH (20:04)
--- NOTE | 2021-04-02 23:45 | P.PN ---
Subjective Progress Note Date: 04/02/21 Principal diagnosis: E. coli bacteremia Patient is 85-year male presented to hospital for chest discomfort and some pain in the right upper quadrant area patient presented to the hospital did have a fever and now with evidence of E. coli bacteremia. On today's evaluation there is 04/02/2021, the patient remains to be afebrile, the patient denies having any right upper quadrant abdominal pain no further nausea no meeting no diarrhea he is breathing comfortably on room air and is overall feeling better Objective - Vital Signs Vital signs: Vital Signs Temp 97.7 F 04/02/21 07:16 Pulse 58 L 04/02/21 07:16 Resp 16 04/02/21 09:35 BP 122/74 04/02/21 07:16 Pulse Ox 95 04/02/21 07:16 Intake & Output 04/01/21 04/02/21 04/02/21 18:59 06:59 18:59 Intake Total 336 240 Output Total 580 1200 Balance -244 -1200 240 Intake: Oral 336 240 Output: Urine 580 1200 Other: Voiding Method Indwelling Catheter Indwelling Catheter - Exam GENERAL DESCRIPTION: Elderly male lying in bed, no distress. No tachypnea or accessory muscle of respiration use. LUNGS: Unlabored breathing. Clear to auscultation anteriorly. No wheeze or crackle. HEART: S1, S2, regular rate and rhythm. No loud murmur ABDOMEN: Soft, no tenderness , guarding or rigidity, no organomegaly EXTREMITIES: No edema of feet. - Labs CBC & Chem 7: 04/02/21 15:19 04/02/21 15:19 Labs: Abnormal Lab Results - Last 24 Hours (Table) 04/01/21 Range/Units 08:10 Sodium 134 L (135-145) mmol/L Carbon Dioxide 19.4 L (20.0-27.5) mmol/L BUN 29.7 H (9.0-27.0) mg/dL Creatinine 1.6 H (0.6-1.5) mg/dL Est GFR (CKD-EPI)AfAm 46.6 L (60.0-200.0) Est GFR (CKD-EPI)NonAf 40.2 L (60.0-200.0) Calcium 8.3 L (8.7-10.3) mg/dL Total Bilirubin 1.40 H (0.30-1.20) mg/dL Conjugated Bilirubin 0.91 H (0.20-0.40) mg/dL AST 176 H (14-35) U/L ALT 378 H (10-49) U/L Total Protein 5.0 L (6.2-8.2) g/dL Albumin 3.3 L (3.8-4.9) g/dL Assessment and Plan (1) E coli bacteremia Current Visit: Yes Status: Acute Code(s): R78.81 - BACTEREMIA; B96.20 - UNSP ESCHERICHIA COLI THE CAUSE OF DISEASES CLASSD [facility] SNOMED Code(s): 428860762784 Plan: Patient with an E. coli bacteremia source likely cholangitis in this we did have elevated liver enzymes and possible passage of a gallstone ultrasound was negative for any features suggestive of cholecystitis and did not show any evidence of hydronephrosis, the patient to continue with IV Rocephin finishing therapy with oral Ceftin and close outpatient follow-up Time with Patient: Less than 30
[2021-04-03] MEDS: SODIUM CHLORIDE 0.9% 1,000 ML IV SCH ×2 (00:04→17:43)
[2021-04-03] MEDS: LORazepam 2 MG/ML INJ IV PRN (00:30)
[2021-04-03] MEDS: LEVOTHYROXINE 125 MCG TAB PO SCH (05:03)
[2021-04-03] MEDS: MULTIVITAMINS, THERA 1 EACH TAB PO SCH (08:30)
[2021-04-03] MEDS: AMIODARONE 100 MG TAB PO SCH (08:30)
[2021-04-03] MEDS: MIDODRINE 5 MG TAB PO SCH ×2 (08:30→17:43)
[2021-04-03] MEDS: ESCITALOPRAM 10 MG TAB PO SCH (08:30)
[2021-04-03] MEDS: APIXABAN 2.5 MG TABLET PO SCH ×2 (08:30→20:24)
[2021-04-03 11:12] VITALS: BMI 26.9
[2021-04-03] MEDS: TAMSULOSIN 0.4 MG CAP.ER.24H PO SCH (17:42)
[2021-04-03] MEDS: ATORVASTATIN 40 MG TAB PO SCH (20:24)
[2021-04-03] MEDS: MELATONIN 5 MG TABLET PO SCH (20:25)
--- NOTE | 2021-04-03 21:48 | P.PN ---
Subjective This is a pleasant 85 years old male with past medical history of Coronary Artery Disease , Hyperlipidemia, Hypertension, Diverticulosis, benign colon polyp removed, nephrolithiasis-has passed stones on his own, bilateral tinnitis. Patient is poor historian and information was obtained from the at bedside As per patient has significant history of dementia which was really worse over the last 2 years as she describes. A he came approached her stated that he has pain referring to his chest and epigastric area, as per it is not known for him to complain about pain so she got concerned and brought him to the emergency room He was lying in bed, answers with 1 or 2 words with low voice, he knows he is in the hospital at [place] but he could not tell the name of the hospital. He could not tell the date or the year or the name of the president, as per that his baseline. He hardly couldn't provide information however when we asked him me and he confirmed gas he doesn't have chest pain now. He denies any other symptoms, no dyspnea, no diarrhea or dysuria or fever. Patient Vitas looks stable CBC is unremarkable INR is normal at 1.1 Creatinine is elevated at 1.4, baseline is unknown, last creatinine was 0.7 and 2016. Sodium 134, potassium 4.5, bilirubin 1.6, AST slightly high at 62, normal ALT of 35. If less than 0.012 3. Coronavirus not detected. Chest x-ray: Hypoventilatory changes. Increased interstitial densities. Correlate to exclude my pulmonary vascular congestion versus bronchitis or atypical pneumonia 03/31/2021 Patient is awake and alert and follow commands however he is still confused, as per this is his baseline with no apparent worsening as she confirms to me today. Patient himself denies any pain, no chest pain or abdominal pain. No coughing or tachypnea. No vomiting or diarrhea. No suprapubic or costovertebral angle tenderness. Yesterday last night Soni catheter was inserted and has dark urine and it. He has no fever but blood pressure was on the low side was this morning 96/51, also last night received lisinopril and other antihypertensive per on-call physician, this morning I stopped his lisinopril and other blood pressure medication give him normal saline bolus and started normal saline at 75 mL/h We will keep monitoring his blood pressure, we'll check lactic acid when necessary as well to help guide therapy. Labs showing leukocytosis of 14,000, platelet 118, hemoglobin 12.4, creatinine actually worsened 1.4 up to 2.3, liver enzymes elevated with AST 567 and ALT 683. Bilirubin is high at 2.8. He has positive blood culture with you colitis, sensitivity is pending Infectious disease in were consulted Last night patient was started on ceftriaxone and doxycycline however antibiotics are adjusted today to cefepime. Also we will check liver and renal ultrasound in view of obstructive uropathy, hypertensive episodes and liver enzymes elevation. Keep holding oral Lasix, hold lisinopril 20 mg twice daily, hold Aldactone Continue with amiodarone and aspirin. Also he is on Eliquis at home. Ejection fraction more than 55% 01/29/2022 Patient was agitated overnight but he is more calm this morning, he still confused which looks close to his baseline. While at bedside confirms these information. He is hemodynamically stable, blood pressure improved 102/58. He is afebrile since admission which is subsided. Rest of Vitas looks stable. The globe in stable 11.4, platelets stable at 120 and obesity came back to normal at 7.6. His creatinine improved to 0.3 down to 1.4, liver enzymes and bilirubin are still pending. E coli and the blood culture is obtained however and the result of sensitivity is still pending Ejection fraction more than 55% Chest x-ray showing basal atelectasis Abdominal ultrasound showin.9 cm gallstone with no gallbladder wall thickening or pericholecystic fluid. The CBD is partially seen. Also there is possible left renal calculus 1.2 cm., Nonobstructing Patient remains on cefepime and Normal saline at 75 mL/h 04/02/2021 Patient today is a little more awake and interactive as per at bedside, he still drowsy and distal confused which is his baseline as well. No specific complaint. Today he denies any respiratory symptoms, no upper abdominal pain or tenderness, no suprapubic pain and tenderness, no urinary symptoms. Patient is hemodynamically stable. Labs from today are still pending. Patient remains on ceftriaxone 2 g were E. coli and blood culture, sensitivity still pending A 6, lisinopril and Aldactone are still on hold Patient continued on normal saline 75 mL per hour as well as Eliquis 5 mg which is home dose. 04/03/2021 Patient is more awake and alert today, he still confused which could be part of his dementia He denies any symptoms, no abdominal pain and tenderness. His abdomen is soft. No other symptoms. Hemodynamically stable. He remains on ceftriaxone with CombiPatch sensation to Ceftin upon discharge Physical therapist recommended HANSEL, wants to take him home Possible discharge tomorrow Objective - Vital Signs Vital signs: Vital Signs Temp 97.3 F L 04/03/21 07:39 Pulse 47 L 04/03/21 10:12 Resp 18 04/03/21 10:12 BP 136/73 04/03/21 07:39 Pulse Ox 97 04/03/21 07:39 Intake & Output 04/02/21 04/03/21 04/03/21 18:59 06:59 18:59 Intake Total 480 Output Total 450 0 800 Balance 30 0 -800 Intake: Oral 480 Output: Urine 450 800 Stool 0 Other: Voiding Method Indwelling Catheter Indwelling Catheter Toilet # Bowel Movements 0 - Exam -GENERAL: The patient is alert and oriented x1 partially to place. This is his baseline as per ,, not in any acute distress. Well developed, well josé miguel shed. HEENT: Pupils are round and equally reacting to light. EOMI. No scleral icterus. No conjunctival pallor. Normocephalic, atraumatic. No pharyngeal erythema. No thyromegaly. CARDIOVASCULAR: S1 and S2 present. No murmurs, rubs, or gallops. PULMONARY: Chest is clear to auscultation, no wheezing or crackles. ABDOMEN: Soft, nontender, nondistended, normoactive bowel sounds. No palpable organomegaly. MUSCULOSKELETAL: No joint swelling or deformity. EXTREMITIES: No cyanosis, clubbing, or pedal edema. NEUROLOGICAL: Gross neurological examination did not reveal any focal deficits. SKIN: No rashes. no petechiae. - Labs CBC & Chem 7: 04/02/21 15:19 04/02/21 15:19 Labs: Abnormal Lab Results - Last 24 Hours (Table) 04/02/21 04/02/21 Range/Units 15:19 15:19 RBC 3.84 L (4.30-5.90) m/uL Hgb 12.8 L (13.0-17.5) gm/dL Hct 38.4 L (39.0-53.0) % Plt Count 141 L (150-450) k/uL Lymphocytes # 0.5 L (1.0-4.8) k/uL Sodium 135 L (137-145) mmol/L BUN 21 H (9-20) mg/dL Glucose 102 H (74-99) mg/dL AST 76 H (17-59) U/L ALT 241 H (4-49) U/L Total Protein 5.6 L (6.3-8.2) g/dL Albumin 3.1 L (3.5-5.0) g/dL Microbiology - Last 24 Hours (Table) 03/30/21 21:10 Blood Culture Gram Stain - Preliminary Blood Blood Culture - Preliminary Escherichia coli Assessment and Plan Assessment: Sepsis with leukocytosis and fever, improving Acute urinary tract infection versus pneumonia versus acute cholecystitis of the source of infection Gallstones with no evidence clinical or radiological for Acute cholecystitis Elevated liver enzymes and bilirubin, mostly secondary to above Acute kidney injury, improving None obstruction 1.2 left kidney calculus Obstructive uropathy status post Soni catheter placement E coli bacteremia 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 Continue same treatment. Continue with symptomatic treatment. Resume home medication. Monitor lytes and vitals. DVT and GI prophylaxis. Further recommendations as per clinical course of the patient DVT prophylaxis: Eliquis GI Prophylaxis: Pepcid PT/OT: Subacute rehab, however I discussed with the at bedside and she wants to take him home Prognosis continues to be guarded Possible discharge in 24 hours
[2021-04-04] MEDS: LORazepam 2 MG/ML INJ IV PRN ×2 (00:31→22:14)
[2021-04-04] MEDS: LEVOTHYROXINE 125 MCG TAB PO SCH (06:54)
[2021-04-04] MEDS: MIDODRINE 5 MG TAB PO SCH ×2 (08:20→17:32)
[2021-04-04] MEDS: AMIODARONE 100 MG TAB PO SCH (08:38)
[2021-04-04] MEDS: APIXABAN 2.5 MG TABLET PO SCH ×2 (08:38→22:13)
[2021-04-04] MEDS: ESCITALOPRAM 10 MG TAB PO SCH (08:39)
[2021-04-04] MEDS: MULTIVITAMINS, THERA 1 EACH TAB PO SCH (08:46)
[2021-04-04 10:11] LABS: Albumin 3.2 g/dL (3.8-4.9); Albumin/Globulin Ratio 1.88 (1.60-3.17); Bilirubin, Conjugated 0.32 mg/dL (0.20-0.40); Bilirubin,Unconjugated 0.38 mg/dL (0.20-1.00); Globulin 1.7 g/dL (1.6-3.3); Total Bilirubin 0.7 mg/dL (0.30-1.20); Total Protein 4.9 g/dL (6.2-8.2)
[2021-04-04] MEDS ORDERED: IPRATROPIUM-ALBUTEROL 3 ML NEB INHALATION PRN (12:21)
[2021-04-04] MEDS ORDERED: IPRATROPIUM-ALBUTEROL 3 ML NEB INHALATION STA (12:21)
--- NOTE | 2021-04-04 12:56 | XR ---
EXAMINATION TYPE: XR chest 1V DATE OF EXAM: 04/04/2021 HISTORY: Shortness of breath. COMPARISON: 04/01/2021 TECHNIQUE: Single view of the chest is submitted. FINDINGS: Demonstrated are scattered senescent parenchymal change. Patchy infiltrate right medial lung base. Correlate for developing pneumonia. The heart is stable. Hilar and mediastinal structures are within normal limits. Degenerative changes are seen of the dorsal spine. IMPRESSION: 1. Patchy infiltrate right medial lung base. Correlate for developing pneumonia.
--- NOTE | 2021-04-04 14:52 | P.PN ---
Subjective This is a pleasant 85 years old male with past medical history of Coronary Artery Disease , Hyperlipidemia, Hypertension, Diverticulosis, benign colon polyp removed, nephrolithiasis-has passed stones on his own, bilateral tinnitis. Patient is poor historian and information was obtained from the at bedside As per patient has significant history of dementia which was really worse over the last 2 years as she describes. A he came approached her stated that he has pain referring to his chest and epigastric area, as per it is not known for him to complain about pain so she got concerned and brought him to the emergency room He was lying in bed, answers with 1 or 2 words with low voice, he knows he is in the hospital at [place] but he could not tell the name of the hospital. He could not tell the date or the year or the name of the president, as per that his baseline. He hardly couldn't provide information however when we asked him me and he confirmed gas he doesn't have chest pain now. He denies any other symptoms, no dyspnea, no diarrhea or dysuria or fever. Patient Vitas looks stable CBC is unremarkable INR is normal at 1.1 Creatinine is elevated at 1.4, baseline is unknown, last creatinine was 0.7 and 2016. Sodium 134, potassium 4.5, bilirubin 1.6, AST slightly high at 62, normal ALT of 35. If less than 0.012 3. Coronavirus not detected. Chest x-ray: Hypoventilatory changes. Increased interstitial densities. Correlate to exclude my pulmonary vascular congestion versus bronchitis or atypical pneumonia 03/31/2021 Patient is awake and alert and follow commands however he is still confused, as per this is his baseline with no apparent worsening as she confirms to me today. Patient himself denies any pain, no chest pain or abdominal pain. No coughing or tachypnea. No vomiting or diarrhea. No suprapubic or costovertebral angle tenderness. Yesterday last night Soni catheter was inserted and has dark urine and it. He has no fever but blood pressure was on the low side was this morning 96/51, also last night received lisinopril and other antihypertensive per on-call physician, this morning I stopped his lisinopril and other blood pressure medication give him normal saline bolus and started normal saline at 75 mL/h We will keep monitoring his blood pressure, we'll check lactic acid when necessary as well to help guide therapy. Labs showing leukocytosis of 14,000, platelet 118, hemoglobin 12.4, creatinine actually worsened 1.4 up to 2.3, liver enzymes elevated with AST 567 and ALT 683. Bilirubin is high at 2.8. He has positive blood culture with you colitis, sensitivity is pending Infectious disease in were consulted Last night patient was started on ceftriaxone and doxycycline however antibiotics are adjusted today to cefepime. Also we will check liver and renal ultrasound in view of obstructive uropathy, hypertensive episodes and liver enzymes elevation. Keep holding oral Lasix, hold lisinopril 20 mg twice daily, hold Aldactone Continue with amiodarone and aspirin. Also he is on Eliquis at home. Ejection fraction more than 55% 01/29/2022 Patient was agitated overnight but he is more calm this morning, he still confused which looks close to his baseline. While at bedside confirms these information. He is hemodynamically stable, blood pressure improved 102/58. He is afebrile since admission which is subsided. Rest of Vitas looks stable. The globe in stable 11.4, platelets stable at 120 and obesity came back to normal at 7.6. His creatinine improved to 0.3 down to 1.4, liver enzymes and bilirubin are still pending. E coli and the blood culture is obtained however and the result of sensitivity is still pending Ejection fraction more than 55% Chest x-ray showing basal atelectasis Abdominal ultrasound showin.9 cm gallstone with no gallbladder wall thickening or pericholecystic fluid. The CBD is partially seen. Also there is possible left renal calculus 1.2 cm., Nonobstructing Patient remains on cefepime and Normal saline at 75 mL/h 04/02/2021 Patient today is a little more awake and interactive as per at bedside, he still drowsy and distal confused which is his baseline as well. No specific complaint. Today he denies any respiratory symptoms, no upper abdominal pain or tenderness, no suprapubic pain and tenderness, no urinary symptoms. Patient is hemodynamically stable. Labs from today are still pending. Patient remains on ceftriaxone 2 g were E. coli and blood culture, sensitivity still pending A 6, lisinopril and Aldactone are still on hold Patient continued on normal saline 75 mL per hour as well as Eliquis 5 mg which is home dose. 04/03/2021 Patient is more awake and alert today, he still confused which could be part of his dementia He denies any symptoms, no abdominal pain and tenderness. His abdomen is soft. No other symptoms. Hemodynamically stable. He remains on ceftriaxone with CombiPatch sensation to Ceftin upon discharge Physical therapist recommended HANSEL, wants to take him home Possible discharge tomorrow 04/04/2011 Patient still drowsy although at baseline he has dementia and thinks he is improving but he still sleepy although it's easier for him to awaken. she Does not want him to go to rehab upon discharge and she wants to take him home. Today 1 ounces he has some stridor, therefore repeat chest x-ray showing right middle lung patchy infiltrate. Also I spoke with the ENT on-call Dr. Lozano recommended to consult pulmonary and order CT of the neck with IV contrast. Risk of side effects including but not limited to ALLERGIC reaction and nephrotoxicity are explained for the patient , she verbalized understanding and wants to proceed with the test which is ordered. He is hemodynamically stable, blood pressure on the high side therefore will resume his home dose of Aldactone and tomorrow. His mean endocrine. He is currently on home dose of leak was 5 mg Lasix is on hold as well as lisinopril for hypertension and worsening kidney function which is improving currently. He is on antibiotics per infectious disease team Objective - Vital Signs Vital signs: Vital Signs Temp 97.7 F 04/04/21 07:00 Pulse 50 L 04/04/21 07:00 Resp 16 04/04/21 13:06 BP 176/83 04/04/21 09:36 Pulse Ox 97 04/04/21 07:00 Intake & Output 04/03/21 04/04/21 04/04/21 18:59 06:59 18:59 Output Total 1200 475 Balance -1200 -475 Weight 90 kg Output: Urine 1200 475 Uretheral (Soni) 200 Stool 0 Other: Voiding Method Toilet Urinal Toilet Urinal # Voids 1 - Exam -GENERAL: The patient is alert and oriented x1 partially to place. This is his baseline as per ,, not in any acute distress. Well developed, well nourished. HEENT: Pupils are round and equally reacting to light. EOMI. No scleral icterus. No conjunctival pallor. Normocephalic, atraumatic. No pharyngeal erythema. No thyromegaly. CARDIOVASCULAR: S1 and S2 present. No murmurs, rubs, or gallops. PULMONARY: Chest is clear to auscultation, no wheezing or crackles. ABDOMEN: Soft, nontender, nondistended, normoactive bowel sounds. No palpable organomegaly. MUSCULOSKELETAL: No joint swelling or deformity. EXTREMITIES: No cyanosis, clubbing, or pedal edema. NEUROLOGICAL: Gross neurological examination did not reveal any focal deficits. SKIN: No rashes. no petechiae. - Labs CBC & Chem 7: 04/02/21 15:19 04/02/21 15:19 Labs: Abnormal Lab Results - Last 24 Hours (Table) 04/04/21 Range/Units 06:45 AST 40 H (14-35) U/L ALT 155 H (10-49) U/L Total Protein 4.9 L (6.2-8.2) g/dL Albumin 3.2 L (3.8-4.9) g/dL Microbiology - Last 24 Hours (Table) 03/30/21 21:10 Blood Culture Gram Stain - Final Blood Blood Culture - Final Escherichia coli Assessment and Plan Assessment: Sepsis with leukocytosis and fever, improving Acute urinary tract infection versus pneumonia versus acute cholecystitis of the source of infection Gallstones with no evidence clinical or radiological for Acute cholecystitis Elevated liver enzymes and bilirubin, mostly secondary to above Acute kidney injury, improving None obstruction 1.2 left kidney calculus Obstructive uropathy status post Soni catheter placement E coli bacteremia 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 Continue same treatment. Continue with symptomatic treatment. Resume home medication. Monitor lytes and vitals. DVT and GI prophylaxis. Further recommendations as per clinical course of the patient DVT prophylaxis: Eliquis GI Prophylaxis: Pepcid PT/OT: Subacute rehab, however I discussed with the at bedside and she wants to take him home. Home health care ordered Prognosis continues to be guarded
--- NOTE | 2021-04-04 15:43 | CT ---
EXAMINATION TYPE: CT neck chest w con DATE OF EXAM: 04/04/2021 1:42 PM COMPARISON: Chest x-ray 04/04/2021 HISTORY: Stridor CT DLP: 1675 mGycm Automated exposure control for dose reduction was used. CONTRAST: CT scan of the neck and chest is performed following with IV Contrast, patient injected with 100 ml m L of Isovue 300. Axial images are obtained, coronal and sagittal reformatted images are reviewed. FINDINGS: Neck: Airway: No gross abnormality seen. Parotid/submandibular glands: No gross abnormality seen. Carotid/Vascular Structures: Dense atheromatous changes are present at the transverse aorta, there ar e coronary artery calcifications present, coronary artery bypass graft. 3 super aortic branch vessels are present. The innominate, left and right common carotid, left and right subclavian arteries are p atent, left and right vertebral arteries are patent, left vertebral artery is dominant. Atheromatous changes present at the level of the carotid bulb on the right, no hemodynamic significant stenosis th e proximal internal carotid arteries is evident by NASCET criteria. Osseous Structures: Degenerative disc changes are present in the visualized spine. There is multileve l foraminal encroachment, facet arthropathy in the cervical spine, skull base is normal. Other: Artifact is noted. CHEST: There is a hiatal hernia with partial intrathoracic stomach. Small right pleural effusion and some associated posterior atelectatic changes are present. No endobronchial lesion or pericardial eff usion, no evident mass. Minimal left effusion is present. There is no mediastinal, axillar, or hilar adenopathy. Patient is post median sternotomy. Mainstem bronchi appears somewhat narrowed as does the distal trachea There is a nonobstructive left renal calculus partially visualized. Gallstone is also present in the dependent portion of the gallbladder. Duodenal diverticulum is noted incidentally. IMPRESSION: Nonspecific bronchial narrowing, there are small pleural effusions and associated atelec tasis. Cholelithiasis, nonobstructive nephrolithiasis. Coronary artery disease, postop changes. Addit ional findings above.
[2021-04-04] MEDS: TAMSULOSIN 0.4 MG CAP.ER.24H PO SCH (17:26)
[2021-04-04] MEDS: SPIRONOLACTONE 25 MG TAB PO SCH (17:27)
[2021-04-04] MEDS ORDERED: SODIUM CHLORIDE 0.9% 1,000 ML IV SCH (22:00)
[2021-04-04] MEDS: ATORVASTATIN 40 MG TAB PO SCH (22:13)
[2021-04-04] MEDS: MELATONIN 5 MG TABLET PO SCH (22:14)
--- NOTE | 2021-04-04 23:11 | P.PN ---
Subjective Progress Note Date: 04/03/21 Principal diagnosis: E. coli bacteremia Patient is 85-year male presented to hospital for chest discomfort and some pain in the right upper quadrant area patient presented to the hospital did have a fever and now with evidence of E. coli bacteremia. On today's evaluation there is 04/03/2021, the patient is afebrile, the patient denies having any right upper quadrant abdominal pain, the patient denies nausea no meeting no diarrhea he is breathing comfortably on room air and is overall feeling better Objective - Vital Signs Vital signs: Vital Signs Temp 97.3 F L 04/03/21 07:39 Pulse 47 L 04/03/21 10:12 Resp 18 04/03/21 10:12 BP 136/73 04/03/21 07:39 Pulse Ox 97 04/03/21 07:39 Intake & Output 04/02/21 04/03/21 04/03/21 18:59 06:59 18:59 Intake Total 480 Output Total 450 0 1000 Balance 30 0 -1000 Weight 90 kg Intake: Oral 480 Output: Urine 450 1000 Uretheral (Soni) 200 Stool 0 Other: Voiding Method Indwelling Catheter Indwelling Catheter Toilet # Bowel Movements 0 - Exam GENERAL DESCRIPTION: Elderly male lying in bed, no distress. No tachypnea or accessory muscle of respiration use. LUNGS: Unlabored breathing. Clear to auscultation anteriorly. No wheeze or crac kle. HEART: S1, S2, regular rate and rhythm. No loud murmur ABDOMEN: Soft, no tenderness , guarding or rigidity, no organomegaly EXTREMITIES: No edema of feet. - Labs CBC & Chem 7: 04/02/21 15:19 04/02/21 15:19 Labs: Abnormal Lab Results - Last 24 Hours (Table) 04/02/21 04/02/21 Range/Units 15:19 15:19 RBC 3.84 L (4.30-5.90) m/uL Hgb 12.8 L (13.0-17.5) gm/dL Hct 38.4 L (39.0-53.0) % Plt Count 141 L (150-450) k/uL Lymphocytes # 0.5 L (1.0-4.8) k/uL Sodium 135 L (137-145) mmol/L BUN 21 H (9-20) mg/dL Glucose 102 H (74-99) mg/dL AST 76 H (17-59) U/L ALT 241 H (4-49) U/L Total Protein 5.6 L (6.3-8.2) g/dL Albumin 3.1 L (3.5-5.0) g/dL Microbiology - Last 24 Hours (Table) 03/30/21 21:10 Blood Culture Gram Stain - Preliminary Blood Blood Culture - Preliminary Escherichia coli Assessment and Plan (1) E coli bacteremia Current Visit: Yes Status: Acute Code(s): R78.81 - BACTEREMIA; B96.20 - UNSP ESCHERICHIA COLI THE CAUSE OF DISEASES CLASSD [facility] SNOMED Code(s): 106133855259 Plan: Patient with an E. coli bacteremia source likely cholangitis in this we did have elevated liver enzymes and possible passage of a gallstone ultrasound was negative for any features suggestive of cholecystitis and did not show any evidence of hydronephrosis, the patient clinically responded to IV Rocephin which should be continued finishing therapy with oral Ceftin and close outpatient follow-up Time with Patient: Less than 30
--- NOTE | 2021-04-04 23:13 | P.PN ---
Subjective Progress Note Date: 04/04/21 Principal diagnosis: E. coli bacteremia Patient is 85-year male presented to hospital for chest discomfort and some pain in the right upper quadrant area patient presented to the hospital did have a fever and now with evidence of E. coli bacteremia. On today's evaluation there is 04/04/2021, the patient denies any fever or any chills, the patient denies having any right upper quadrant abdominal pain, the patient denies nausea no meeting no diarrhea patient apparently was wheezing earlier today for the patient did have a CT of the neck and chest, patient currently denies having any chest pain shortness of breath or cough Objective - Vital Signs Vital signs: Vital Signs Temp 97.5 F L 04/04/21 20:12 Pulse 62 04/04/21 20:12 Resp 17 04/04/21 20:12 BP 146/69 04/04/21 20:12 Pulse Ox 97 04/04/21 20:12 Intake & Output 04/04/21 04/04/21 04/05/21 06:59 18:59 06:59 Intake Total 118 Output Total 475 380 Balance -475 -262 Intake: Oral 118 Output: Urine 475 380 Stool 0 Other: Voiding Method Urinal Toilet Urinal # Voids 1 1 1 # Bowel Movements 1 - Exam GENERAL DESCRIPTION: Elderly male lying in bed, no distress. No tachypnea or accessory muscle of respiration use. LUNGS: Unlabored breathing. Clear to auscultation anteriorly. No wheeze or crackle. HEART: S1, S2, regular rate and rhythm. No loud murmur ABDOMEN: Soft, no tenderness , guarding or rigidity, no organomegaly EXTREMITIES: No edema of feet. - Labs CBC & Chem 7: 04/02/21 15:19 04/02/21 15:19 Labs: Abnormal Lab Results - Last 24 Hours (Table) 04/04/21 Range/Units 06:45 AST 40 H (14-35) U/L ALT 155 H (10-49) U/L Total Protein 4.9 L (6.2-8.2) g/dL Albumin 3.2 L (3.8-4.9) g/dL Microbiology - Last 24 Hours (Table) 03/30/21 21:10 Blood Culture Gram Stain - Final Blood Blood Culture - Final Escherichia coli Assessment and Plan (1) E coli bacteremia Current Visit: Yes Status: Acute Code(s): R78.81 - BACTEREMIA; B96.20 - UNSP ESCHERICHIA COLI THE CAUSE OF DISEASES CLASSD [facility] SNOMED Code(s): 562099402143 Plan: 1Patient with an E. coli bacteremia source likely cholangitis in this we did have elevated liver enzymes and possible passage of a gallstone ultrasound was negative for any features suggestive of cholecystitis and did not show any evidence of hydronephrosis, the patient clinically responded to IV Rocephin which should be continued finishing therapy with oral Ceftin and close outpatient follow-up. 2patient with an episode of wheezing this morning CT of abdominal pelvis did show some bilateral hernia however did not mention any consolidation or basilar effusion and atelectasis, advise aspiration precautions and incentive spirometry Time with Patient: Less than 30
[2021-04-05] MEDS: LEVOTHYROXINE 125 MCG TAB PO SCH (06:20)
[2021-04-05 08:55] LABS: Basophils # (A) 0.05 X 10*3/uL (0.00-0.10); Basophils % (A) 0.9 %; Eosinophils # (A) 0.19 X 10*3/uL (0.04-0.35); Eosinophils % (A) 3.3 %; HCT 34.1 % (39.6-50.0); HGB 11.3 g/dL (13.0-17.0); Immature Grans, Automated 1.2 %; Lymphocytes # (A) 0.77 X 10*3/uL (0.90-5.00); Lymphocytes % (A) 13.5 %; MCH 31.7 pg (27.0-32.0); MCHC 33.1 g/dL (32.0-37.0); MCV 95.8 fL (80.0-97.0); Mean Platelet Volume 11.1 fL (9.5-12.2); Monocytes # (A) 0.54 X 10*3/uL (0.20-1.00); Monocytes % (A) 9.5 %; NRBC Per 100 WBC 0 /100 WBCS (0.0-0.0); Neutrophils # (A) 4.07 X 10*3/uL (1.80-7.70); Neutrophils % (A) 71.6 %; Platelet Count 151 X 10*3/uL (140-440); RBC 3.56 X 10*6/uL (4.40-5.60); RDW 12.7 % (11.5-14.5); WBC 5.69 X 10*3/uL (4.50-10.00)
[2021-04-05 09:07] VITALS: PULSE 64; RESP 20; TEMP 97.6
[2021-04-05 09:16] LABS: African American GFR (CKD) 90.6 (60.0-200.0); Anion Gap 8.5 mmol/L (10.00-18.00); BUN/Creat Ratio 11.67 Ratio (12.00-20.00); Blood Urea Nitrogen 10.5 mg/dL (9.0-27.0); Calcium 8.4 mg/dL (8.7-10.3); Carbon Dioxide 21.5 mmol/L (20.0-27.5); Non-African American GFR(CKD) 78.2 (60.0-200.0); Potassium 4.1 mmol/L (3.5-5.5)
[2021-04-05] MEDS: MIDODRINE 5 MG TAB PO SCH (09:41)
[2021-04-05] MEDS: MULTIVITAMINS, THERA 1 EACH TAB PO SCH (09:42)
[2021-04-05] MEDS: SPIRONOLACTONE 25 MG TAB PO SCH (09:42)
[2021-04-05] MEDS: AMIODARONE 100 MG TAB PO SCH (09:43)
[2021-04-05] MEDS: APIXABAN 2.5 MG TABLET PO SCH (09:43)
[2021-04-05] MEDS: ESCITALOPRAM 10 MG TAB PO SCH (09:50)
[2021-04-05 11:04] VITALS: BP 132/73
--- NOTE | 2021-04-05 13:37 | P.CNPUL ---
History of Present Illness Consult date: 04/05/21 Reason for consult: abnormal CXR/CT History of present illness: 85-year-old male patient, advanced dementia, information was obtained from the medical records and from the at the bedside. I was asked to evaluate this patient because of abnormal computed tomography scan of the chest. The computed tomography scan showed possible bronchial airway narrowing and the patient was having some noisy breathing and for that reason the public and station was requested. In essence, the patient is currently in the hospital for a gram- negative sepsis with E. coli. The patient came into the restaurant because of chest discomfort has also right upper quadrant discomfort and he had also fever. Apparently the patient was having difficulties to maintain oral intake and he had an episode of emesis and for that reason he was brought into the hospital. In the hospital, he had dinner retention. A Soni catheter was inserted. His tumor temperature was 101.3 and he also has some mild leukocytosis. At the later stage, the patient was found to have gram-negative bacteremia/sepsis. His LFTs were abnormal. Ultrasound the gallbladder showed a technically difficult study. The patient's cholelithiasis without convincing evidence of acute cho lecystitis. There was also suspected nonobstructive stone in the left kidney measuring 1.2 cm in size. Noted the patient's LFTs were essentially abnormal with elevation in the AST, ALP and bilirubin and all of them are improving for now. As such, it is possible the patient a component of cholangitis or a passing biliary stone. The UA showed only 8 WBCs. In any rate, the patient is doing well until while being treated with IV antibiotics and the patient is currently on IV Rocephin 2 g every 24 hours. I reviewed the computed tomography scan of the chest. No evidence of pneumonia. 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 Patient denies having any aspiration. No cough. No sputum production. No chest tightness. No wheezing. No smoking. He is on long-term anticoagulation with Eliquis which she takes on outpatient basis of dose of 5 mg twice a day. The CAT scan of the neck was also negative. No acute abnormal masses were noted in the neck area. Review of Systems Limited review of systems due to his underlying dementia. CONSTITUTIONAL: Positive for weakness fever. Currently afebrile. EYES: No complaint. ENT: No complaint. RESPIRATORY: No complaint. CARDIOVASCULAR: No complaint. GENITOURINARY: No complaint. Urinary retention at time of admission, treated with Soni catheter and the cath was ultimately removed GASTROINTESTINAL: As per history of present illness. The patient has a right upper quadrant pain and some nausea and emesis 1 MUSCULOSKELETAL: No complaint. INTEGUMENTARY : No complaint. PSYCHOLOGIC: No complaint. ENDOCRINE: No complaint. NEUROLOGIC: As per history of present illness. Underlying dementia with co gnitive impairment and is a very poor historian. Past Medical History Past Medical History: Coronary Artery Disease (CAD), Hyperlipidemia, Hypertension Additional Past Medical History / Comment(s): Diverticulosis, benign colon polyp removed, nephrolithiasis-has passed stones on his own, bilateral tinnitis. Last Myocardial Infarction Date:: 1994 History of Any Multi-Drug Resistant Organisms: None Reported Past Surgical History: Coronary Bypass/CABG Additional Past Surgical History / Comment(s): 2 vessel CABG Past Anesthesia/Blood Transfusion Reactions: No Reported Reaction Past Psychological History: No Psychological Hx Reported Past Alcohol Use History: Occasional Past Drug Use History: None Reported - Past Family History Father Family Medical History: Myocardial Infarction (VT) Additional Family Medical History / Comment(s): Father of a VT at an "early age" but age is unknown. Mother Family Medical History: Dementia Medications and Allergies Home Medications Medication Instructions Recorded Confirmed Type Spironolactone [Aldactone] 25 mg PO DAILY #30 tab 12/17/15 03/30/21 Rx Amiodarone [Cordarone] 100 mg PO DAILY 03/30/21 03/30/21 History Apixaban [Eliquis] 5 mg PO BID 03/30/21 03/30/21 History Aspirin EC [Ecotrin Low Dose] 81 mg PO DAILY 03/30/21 03/30/21 History Atorvastatin [Lipitor] 40 mg PO HS 03/30/21 03/30/21 History Escitalopram Oxalate [Lexapro] 10 mg PO DAILY 03/30/21 03/30/21 History Levothyroxine Sodium [Synthroid] 125 mcg PO MOTUWETHFRSA 03/30/21 03/30/21 History Melatonin 5 mg PO HS 03/30/21 03/30/21 History Metoprolol Tartrate [Lopressor] 25 mg PO BID PRN 03/30/21 03/30/21 History Multivitamins, Thera [Multivitamin 1 tab PO DAILY 03/30/21 03/30/21 History (formulary)] Nitroglycerin Sl Tabs [Nitrostat] 0.4 mg SL Q5M PRN 03/30/21 03/30/21 History [place]-3 Fatty Acids/Fish Oil [Fish 1 cap PO DAILY 03/30/21 03/30/21 History Oil 1,000 mg Softgel] Cefuroxime Axetil [Ceftin] 500 mg PO BID 9 Days #18 tab 04/05/21 Rx Famotidine [Pepcid] 20 mg PO HS #14 tablet 04/05/21 Rx Tamsulosin [Flomax] 0.4 mg PO PC-SUPPER #30 04/05/21 Rx Allergies Allergy/AdvReac Type Severity Reaction Status Date / Time No Known Allergies Allergy Verified 03/30/21 14:48 Physical Exam Vitals: Vital Signs Temp Pulse Pulse Resp BP BP Pulse Ox 04/05/21 09:30 132/73 04/05/21 08:05 95 04/05/21 07:15 97.6 F 64 20 140/81 04/05/21 02:15 98.3 F 74 16 103/68 94 L 04/05/21 02:00 62 17 04/04/21 20:12 97.5 F L 62 17 146/69 97 04/04/21 20:00 62 17 04/04/21 14:00 58 L 47 L 16 04/04/21 13:53 97.1 F L 58 L 16 150/78 97 Intake and Output 04/04/21 04/05/21 04/05/21 22:59 06:59 14:59 Intake Total 118 Output Total 380 Balance -262 Intake: Oral 118 Output: Urine 380 Other: Voiding Method Urinal Urinal # Voids 1 1 # Bowel Movements 1 The patient appeared well nourished and normally developed. Vital signs as documented. Head exam is unremarkable. No scleral icterus or corneal arcus noted. Neck is without jugular venous distension, thyromegaly, or carotid bruits. Carotid upstrokes are brisk bilaterally. Lungs are clear to auscultation and percussion. Cardiac exam reveals the PMI to be normally sized and situated. Rhythm is regular. First and second heart sounds normal. No murmurs, rubs or gallops. Abdominal exam reveals normal bowel sounds, no masses, no organomegaly and no aortic enlargement. Extremities are nonedematous and both femoral and p edal pulses are normal.Examination of the skin revealed no evidence of significant rashes, suspicious appearing nevi or other concerning lesions. Neurologically the patient is impairment of the cognitive functions, memory, intellect, no focal neurological deficit was noted. Results - Laboratory Findings CBC and BMP: 04/05/21 06:14 04/05/21 06:14 PT/INR, D-dimer PT 11.7 sec (9.0-12.0) 03/30/21 12:47 INR 1.1 (<1.2) 03/30/21 12:47 Abnormal lab findings: Abnormal Labs 03/30/21 03/30/21 03/30/21 12:47 12:47 23:35 WBC RBC 3.92 L Hgb Hct 38.3 L Plt Count Immature Gran # Neutrophils # 8.0 H Neutrophils # (Manual) Lymphocytes # 0.5 L Lymphocytes # (Manual) Sodium 134 L Carbon Dioxide Anion Gap BUN 23 H Creatinine 1.48 H Est GFR (CKD-EPI)AfAm Est GFR (CKD-EPI)NonAf BUN/Creatinine Ratio Glucose 107 H Calcium 8.3 L Total Bilirubin 1.6 H Conjugated Bilirubin AST 62 H ALT Total Protein 5.9 L Albumin 3.4 L HDL Cholesterol Urine Protein Trace H Urine Blood Small H Ur Leukocyte Esterase Trace H Urine RBC 8 H Urine WBC 8 H Urine Bacteria Rare H Hyaline Casts 5 H Urine Mucus Rare H 03/31/21 03/31/21 04/01/21 06:02 06:02 08:10 WBC 14.3 H RBC 3.64 L 3.49 L Hgb 12.4 L 11.7 L Hct 35.8 L 33.9 L Plt Count 118 L 120 L Immature Gran # Neutrophils # Neutrophils # (Manual) 13.20 H Lymphocytes # 0.5 L Lymphocytes # (Manual) 0.43 L Sodium 132 L Carbon Dioxide 19.6 L Anion Gap BUN 29.0 H Creatinine 2.3 H Est GFR (CKD-EPI)AfAm 29.1 L Est GFR (CKD-EPI)NonAf 25.1 L BUN/Creatinine Ratio Glucose Calcium 8.2 L Total Bilirubin 3.50 H Conjugated Bilirubin 2.82 H AST 567 H ALT 683 H Total Protein 5.0 L Albumin 3.4 L HDL Cholesterol 33.00 L Urine Protein Urine Blood Ur Leukocyte Esterase Urine RBC Urine WBC Urine Bacteria Hyaline Casts Urine Mucus 04/01/21 04/01/21 04/02/21 08:10 11:17 15:19 WBC RBC 3.84 L Hgb 12.8 L Hct 38.4 L Plt Count 141 L Immature Gran # Neutrophils # Neutrophils # (Manual) Lymphocytes # 0.5 L Lymphocytes # (Manual) Sodium 134 L Carbon Dioxide 19.4 L Anion Gap BUN 29.7 H Creatinine 1.6 H 1.43 H Est GFR (CKD-EPI)AfAm 46.6 L Est GFR (CKD-EPI)NonAf 40.2 L BUN/Creatinine Ratio Glucose Calcium 8.3 L Total Bilirubin 1.40 H Conjugated Bilirubin 0.91 H AST 176 H ALT 378 H Total Protein 5.0 L Albumin 3.3 L HDL Cholesterol Urine Protein Urine Blood Ur Leukocyte Esterase Urine RBC Urine WBC Urine Bacteria Hyaline Casts Urine Mucus 04/02/21 04/04/21 04/05/21 15:19 06:45 06:14 WBC RBC 3.56 L Hgb 11.3 L Hct 34.1 L Plt Count Immature Gran # 0.07 H Neutrophils # Neutrophils # (Manual) Lymphocytes # 0.77 L Lymphocytes # (Manual) Sodium 135 L Carbon Dioxide Anion Gap BUN 21 H Creatinine Est GFR (CKD-EPI)AfAm Est GFR (CKD-EPI)NonAf BUN/Creatinine Ratio Glucose 102 H Calcium Total Bilirubin Conjugated Bilirubin AST 76 H 40 H ALT 241 H 155 H Total Protein 5.6 L 4.9 L Albumin 3.1 L 3.2 L HDL Cholesterol Urine Protein Urine Blood Ur Leukocyte Esterase Urine RBC Urine WBC Urine Bacteria Hyaline Casts Urine Mucus 04/05/21 06:14 WBC RBC Hgb Hct Plt Count Immature Gran # Neutrophils # Neutrophils # (Manual) Lymphocytes # Lymphocytes # (Manual) Sodium 134 L Carbon Dioxide Anion Gap 8.50 L BUN Creatinine Est GFR (CKD-EPI)AfAm Est GFR (CKD-EPI)NonAf BUN/Creatinine Ratio 11.67 L Glucose Calcium 8.4 L Total Bilirubin Conjugated Bilirubin AST ALT Total Protein Albumin HDL Cholesterol Urine Protein Urine Blood Ur Leukocyte Esterase Urine RBC Urine WBC Urine Bacteria Hyaline Casts Urine Mucus - Diagnostic Findings Chest x-ray: image reviewed CT scan - chest: image reviewed Assessment and Plan Plan: 1 acute E. coli sepsis, likely of a biliary source. The patient's cholelithiasis without coronary think evidence of an acute cholecystitis. The LFTs are abnormal. Consider transient biliary obstruction/cholangitis and the patient has done well with IV Rocephin. 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 No evidence of any hydronephrosis 8 coronary artery disease 9 hypertension 10 hyperlipidemia 11 diverticulosis Plan Continue IV Rocephin Consider cholecystectomy at a later stage Overall restlessness status is stable at CAT scan of the chest was noted. CAT scan of the neck was noted. Family was reassured. Clinically improving. We'll sign off the case and we'll leave the rest of the management of the medicine. No active pulmonary issues for the time being.
--- NOTE | 2021-04-05 15:59 | P.PN ---
Subjective Progress Note Date: 04/05/21 Principal diagnosis: E. coli bacteremia Patient is 85-year male presented to hospital for chest discomfort and some pain in the right upper quadrant area patient presented to the hospital did have a fever and now with evidence of E. coli bacteremia. On today's evaluation there is 04/05/2021, the patient remains to be afebrile, the patient denies denies any chest pain shortness of breath or cough currently on room air no nausea no vomiting no abdominal pain no diarrhea Objective - Vital Signs Vital signs: Vital Signs Temp 97.6 F 04/05/21 07:15 Pulse 64 04/05/21 07:15 Resp 20 04/05/21 07:15 BP 132/73 04/05/21 09:30 Pulse Ox 95 04/05/21 08:05 Intake & Output 04/04/21 04/05/21 04/05/21 18:59 06:59 18:59 Intake Total 118 Output Total 380 Balance -262 Intake: Oral 118 Output: Urine 380 Stool 0 Other: Voiding Method Toilet Urinal Urinal # Voids 1 1 # Bowel Movements 1 - Exam GENERAL DESCRIPTION: Elderly male lying in bed, no distress. No tachypnea or accessory muscle of respiration use. LUNGS: Unlabored breathing. Clear to auscultation anteriorly. No wheeze or crane man ckle. HEART: S1, S2, regular rate and rhythm. No loud murmur ABDOMEN: Soft, no tenderness , guarding or rigidity, no organomegaly EXTREMITIES: No edema of feet. - Labs CBC & Chem 7: 04/05/21 06:14 04/05/21 06:14 Labs: Abnormal Lab Results - Last 24 Hours (Table) 04/05/21 04/05/21 Range/Units 06:14 06:14 RBC 3.56 L (4.40-5.60) X 10*6/uL Hgb 11.3 L (13.0-17.0) g/dL Hct 34.1 L (39.6-50.0) % Immature Gran # 0.07 H (0.00-0.04) X 10*3/uL Lymphocytes # 0.77 L (0.90-5.00) X 10*3/uL Sodium 134 L (135-145) mmol/L Anion Gap 8.50 L (10.00-18.00) mmol/L BUN/Creatinine Ratio 11.67 L (12.00-20.00) Ratio Calcium 8.4 L (8.7-10.3) mg/dL Assessment and Plan (1) E coli bacteremia Status: Acute Code(s): R78.81 - BACTEREMIA; B96.20 - UNSP ESCHERICHIA COLI THE CAUSE OF DISEASES CLASSD [facility] SNOMED Code(s): 867550150981 Plan: 1Patient with an E. coli bacteremia source likely cholangitis in this we did have elevated liver enzymes and possible passage of a gallstone ultrasound was negative for any features suggestive of cholecystitis and did not show any evidence of hydronephrosis, the patient clinically responded to IV Rocephin with a plan to finish therapy with oral Ceftin and close outpatient follow-up 2patient with an episode of wheezing this morning CT of abdominal pelvis did show some bilateral hernia however did not mention any consolidation or basilar effusion and atelectasis, continue with incentive spirometry Time with Patient: Less than 30
== END 2021-04-05 15:35 | disposition home health service (06) | DRG 872 ==
LOC: EC 12:28 → 6NMEDSUR 13:55 → OBSVTOIN 03-31 09:06 → 6NMEDSUR 04-04 21:30
PROVIDERS: ADMIT Internal Medicine; ATTEND Internal Medicine
DX: A41.51 Sepsis due to Escherichia coli [E. coli] (principal); J98.11 Atelectasis; K80.21 Calculus of gallbladder without cholecystitis with obstruction; N39.0 Urinary tract infection, site not specified; N17.9 Acute kidney failure, unspecified; N13.8 Other obstructive and reflux uropathy; Z20.822 Contact with and (suspected) exposure to COVID-19; K57.30 Diverticulosis of large intestine without perforation or abscess without bleeding; I25.10 Atherosclerotic heart disease of native coronary artery without angina pectoris; Z87.442 Personal history of urinary calculi; I48.0 Paroxysmal atrial fibrillation; Z68.26 Body mass index [BMI] 26.0-26.9, adult; I08.1 Rheumatic disorders of both mitral and tricuspid valves; R07.9 Chest pain, unspecified; R33.8 Other retention of urine; E03.9 Hypothyroidism, unspecified; E11.9 Type 2 diabetes mellitus without complications; N20.0 Calculus of kidney; R74.01 Elevation of levels of liver transaminase levels; E66.9 Obesity, unspecified; G30.9 Alzheimer's disease, unspecified; F02.80 Dementia in other diseases classified elsewhere, unspecified severity, without behavioral disturbance, psychotic disturbance, mood disturbance, and anxiety; H91.90 Unspecified hearing loss, unspecified ear; I45.10 Unspecified right bundle-branch block; J98.09 Other diseases of bronchus, not elsewhere classified; E78.5 Hyperlipidemia, unspecified; I10 Essential (primary) hypertension; Z79.01 Long term (current) use of anticoagulants; I25.2 Old myocardial infarction; Z79.02 Long term (current) use of antithrombotics/antiplatelets; Z79.82 Long term (current) use of aspirin; Z79.890 Hormone replacement therapy; Z79.899 Other long term (current) drug therapy; Z82.49 Family history of ischemic heart disease and other diseases of the circulatory system; Z87.19 Personal history of other diseases of the digestive system; Z87.891 Personal history of nicotine dependence; Z95.1 Presence of aortocoronary bypass graft
CPT/HCPCS: 36415; 70491; 71045; 71046; 71260; 76700; 80048; 80053; 80061; 80076; 81001; 82565; 83605; 83735; 83880; 84145; 84484; 85025; 85610; 85730; 87040; 87077; 87186; 87635; 93005; 93306; 94760; 99285

== ENCOUNTER 2021-05-02 08:03 | Day surgery (SDC) | payer MEDICARE, OTHER ==
[2021-04-29 15:44] VITALS: BMI 31.3
[~2021-05-02 08:03] MED LIST: ACETAMINOPHEN TAB 500 MG TAB PO PRN; DEXAMETHASONE SOD PHOSPHATE 4 MG/ML 1 ML VIAL IV ONE; HEPARIN SODIUM,PORCINE/PF 5,000 UNIT/0.5 ML SYRINGE SQ PRN; HYDROmorphone 0.5 MG/0.5 ML SYRINGE IVP PRN; LACTATED RINGERS 1,000 ML IV SCH; LIDOCAINE 1% (10MG/ML) FOR IV START INTRADERMA PRN; MIDAZOLAM 2 MG/2 ML VIAL IV PRN; ONDANSETRON 4 MG/2 ML VIAL IVP ONE
[2021-05-02 09:00] LABS: Glucose,Whole Blood 102 mg/dL (75-99)
--- NOTE | 2021-05-02 09:47 | P.GSHP ---
History of Present Illness H&P Date: 05/02/21 Chief Complaint: Right upper quadrant pain This 85-year-old male who's had complete right quadrant pain. His recent ultrasound shows evidence of cholelithiasis. He presents today for laparoscopic cholecystectomy Past Medical History Past Medical History: Atrial Fibrillation, Coronary Artery Disease (CAD), Cancer, GERD/Reflux, Hyperlipidemia, Hypertension, Memory Impairment, Myocardial Infarction (LA), Skin Disorder, Thyroid Disorder Additional Past Medical History / Comment(s): Diverticulosis,hx kidney stones, bilateral tinnitis. has episodes of shaking and feeling cold-lasts about 1/2 hr, LA x 2-3, BP has been fluctuating up and down, SOB easily, "diseased gallbladder", psoriasis, spot on neck being checked, sepsis 03/2021, hx skin cancer on face Last Myocardial Infarction Date:: approx 3 yrs ago History of Any Multi-Drug Resistant Organisms: None Reported Past Surgical History: Appendectomy, Coronary Bypass/CABG, Heart Catheterization With Stent Additional Past Surgical History / Comment(s): 2 vessel CABG 1994, skin cancer removed from face, one cardiac stent Past Anesthesia/Blood Transfusion Reactions: No Reported Reaction Date of Last Stent Placement:: 2015 Smoking Status: Former smoker - Past Family History Father Family Medical History: Myocardial Infarction (LA) Additional Family Medical History / Comment(s): Father of a LA at an "early age" but age is unknown. Mother Family Medical History: Dementia Brother(s) Family Medical History: Cancer Medications and Allergies Home Medications Medication Instructions Recorded Confirmed Type Spironolactone [Aldactone] 25 mg PO DAILY #30 tab 12/17/15 04/29/21 Rx Amiodarone [Cordarone] 100 mg PO DAILY 03/30/21 04/29/21 History Aspirin EC [Ecotrin Low Dose] 81 mg PO DAILY 03/30/21 04/29/21 History Atorvastatin [Lipitor] 40 mg PO HS 03/30/21 04/29/21 History Escitalopram Oxalate [Lexapro] 10 mg PO DAILY 03/30/21 04/29/21 History Levothyroxine Sodium [Synthroid] 125 mcg PO MOTUWETHFRSA 03/30/21 04/29/21 History Melatonin 5 mg PO HS 03/30/21 04/29/21 History Metoprolol Tartrate [Lopressor] 25 mg PO BID PRN 03/30/21 04/29/21 History Multivitamins, Thera [Multivitamin 1 tab PO DAILY 03/30/21 04/29/21 History (formulary)] Nitroglycerin Sl Tabs [Nitrostat] 0.4 mg SL Q5M PRN 03/30/21 04/29/21 History [place]-3 Fatty Acids/Fish Oil [Fish 1 cap PO DAILY 03/30/21 04/29/21 History Oil 1,000 mg Softgel] Tamsulosin [Flomax] 0.4 mg PO PC-SUPPER #30 04/05/21 04/29/21 Rx Furosemide [Lasix] 20 mg PO DAILY 04/29/21 04/29/21 History Loratadine [Claritin] 10 mg PO QAM 04/29/21 04/29/21 History Omeprazole 5 mg PO QAM 04/29/21 04/29/21 History Allergies Allergy/AdvReac Type Severity Reaction Status Date / Time No Known Allergies Allergy Verified 05/02/21 08:31 Surgical - Exam Vital Signs Temp Pulse Resp BP Pulse Ox 97.2 F L 60 20 140/68 96 05/02/21 08:36 05/02/21 08:36 05/02/21 08:36 05/02/21 08:36 05/02/21 08:36 - General well developed, well nourished, no distress - Eyes PERRL - ENT normal pinna - Neck no masses - Respiratory normal expansion - Cardiovascular Rhythm: regular - Abdomen Abdomen: soft, non tender Results - Labs Abnormal Lab Results - Last 24 Hours (Table) 05/02/21 Range/Units 08:59 POC Glucose (mg/dL) 102 H (75-99) mg/dL Assessment and Plan Assessment: Cholelithiasis Right quadrant pain We'll perform laparoscopic cholecystectomy
[2021-05-02] MEDS ORDERED: LIDOCAINE 1% INJ 10MG/ML (20 ML MDV) ONE (09:57)
[2021-05-02] MEDS ORDERED: SUCCINYLCHOLINE CHLORIDE 100 MG/5 ML SYR IV ONE (09:57)
[2021-05-02] MEDS ORDERED: NEOSTIGMINE 1 MG/ML 10 ML VIAL ONE (09:57)
[2021-05-02] MEDS ORDERED: ROCURONIUM 10 MG/ML (5 ML VIAL) IV ONE (09:57)
[2021-05-02] MEDS ORDERED: fentaNYL (PF) 50 MCG/ML 2 ML AMP ONE (09:57)
[2021-05-02] MEDS ORDERED: PROPOFOL 10 MG/ML 20 ML VIAL IV ONE (09:57)
[2021-05-02] MEDS ORDERED: GLYCOPYRROLATE 0.2 MG/ML 2 ML VIAL ONE (09:57)
[2021-05-02] MEDS ORDERED: BUPIVACAIN-EPI 0.25%-1:200,000 30 ML VIAL SQ ONE ×2 (10:07→10:16)
--- NOTE | 2021-05-02 10:38 | P.OP ---
Date of Procedure: 05/02/21 Preoperative Diagnosis: Cholelithiasis Postoperative Diagnosis: Cholelithiasis Procedure(s) Performed: Laparoscopic cholecystectomy Anesthesia: JEFFRY Surgeon: Chris Hernandez Estimated Blood Loss (ml): 5 Pathology: other (Gallbladder) Condition: stable Disposition: PACU Description of Procedure: The patient was placed on the operating table. The patient received a general endotracheal tube anesthesia. The patients abdomen was prepped and draped in the usual sterile fashion. Through an infraumbilical stab incision, the fascia of the anterior abdominal wall was grasped with a pair of Kochers and then the Veress needle was placed in the peritoneal cavity. Position of the Veress needle was confirmed with positive drop test. The abdomen was then insufflated. After adequate insufflation, the 10 mm trocar was placed in the peritoneal cavity. Following this the laparoscope was placed in the peritoneal cavity. The patient was placed in the head-up, right side up position and then a 5 mm trocar was placed in the right lateral and right subcostal position under direct visualization. A 8 mm trocar was placed in the epigastric position. The gallbladder was grasped in the fundus and infundibulum. Traction on the gallbladder was placed in the lateral and the cephalad positions. The triangle of Calot was visualized.. The cystic duct was bluntly dissected until the union of the cystic duct and common bile duct was seen. A critical view of safety was achieved. The cystic duct was then divided and sealed with the Harmonic scissors. A PDS Endoloop was then placed throughout the cystic duct stump. The cystic artery divided and sealed with the Harmonic scissors. The gallbladder was then removed from the liver bed using Harmonic scissors. The gallbladder was then extracted through the epigastric port site. Operative field was checked for any bleeding spots and Harmonic scissors was used to coagulate the liver bed. The abdomen was irrigated. The trocars were removed. The skin was closed using interrupted 3-0 Vicryl suture. Dermabond dressing were applied. The patient tolerated the procedure well.
[2021-05-02 10:51] VITALS: TEMP 97.1
[2021-05-02 11:03] VITALS: RESP 16
[2021-05-02 12:49] VITALS: BP 168/69; PULSE 60
[2021-05-02] MEDS ORDERED: LACTATED RINGERS 1,000 ML IV ONE (13:05)
[2021-05-02] MEDS ORDERED: FUROSEMIDE 20 MG TAB PO STA (13:14)
[2021-05-02] MEDS ORDERED: TAMSULOSIN 0.4 MG CAP.ER.24H PO STA (13:15)
[2021-05-02] MEDS ORDERED: TAMSULOSIN 0.4 MG CAP.ER.24H PO ONE (13:48)
== END 2021-05-02 15:20 | disposition home or self-care (01) ==
LOC: OR 08:03
PROVIDERS: ATTEND Surgery
DX: K80.10 Calculus of gallbladder with chronic cholecystitis without obstruction (principal); I48.91 Unspecified atrial fibrillation; I25.10 Atherosclerotic heart disease of native coronary artery without angina pectoris; I10 Essential (primary) hypertension; I25.2 Old myocardial infarction; E07.9 Disorder of thyroid, unspecified; Z87.19 Personal history of other diseases of the digestive system; K21.9 Gastro-esophageal reflux disease without esophagitis; E78.5 Hyperlipidemia, unspecified; Z87.442 Personal history of urinary calculi; Z90.49 Acquired absence of other specified parts of digestive tract; Z95.1 Presence of aortocoronary bypass graft; Z87.891 Personal history of nicotine dependence
CPT/HCPCS: 47562; 88304; J1100; J2710; J0690; J2405; J2001; J3010; J0330; J2704; J1644

== ENCOUNTER 2021-07-03 12:53 | Inpatient (IN) | payer MEDICARE, OTHER ==
[2021-07-03 16:56] LABS: Basophils % (A) 1 %; Eosinophils # (A) 0.2 k/uL (0-0.7); Eosinophils % (A) 2 %; HCT 33.6 % (39.0-53.0); HGB 11.5 gm/dL (13.0-17.5); Lymphocytes # (A) 1.5 k/uL (1.0-4.8); Lymphocytes % (A) 19 %; MCH 32.8 pg (25.0-35.0); MCHC 34.1 g/dL (31.0-37.0); MCV 96.2 fL (80.0-100.0); Mean Platelet Volume 8.6; Monocytes # (A) 0.5 k/uL (0-1.0); Monocytes % (A) 6 %; Neutrophils # (A) 5.5 k/uL (1.3-7.7); Neutrophils % (A) 70 %; Platelet Count 223 k/uL (150-450); RBC 3.49 m/uL (4.30-5.90); RDW 14.1 % (11.5-15.5); WBC 7.9 k/uL (3.8-10.6)
[2021-07-03 16:59] LABS: Lactic Acid, Venous 1.7 mmol/L (0.7-2.0)
[2021-07-03 17:02] LABS: Albumin 3.6 g/dL (3.5-5.0); Calcium 8.7 mg/dL (8.4-10.2); Potassium 4.7 mmol/L (3.5-5.1); Total Bilirubin 0.8 mg/dL (0.2-1.3); Total Protein 5.9 g/dL (6.3-8.2)
[2021-07-03] MEDS ORDERED: LORazepam 2 MG/ML INJ IV STA (17:52)
[2021-07-03 18:46] LABS: Appearance,Urine Clear (Clear); Bilirubin,Urine Negative (Negative); Blood,Urine Trace (Negative); Color,Urine Yellow; Glucose,Urine (UA) Negative (Negative); Hyaline Casts,Urine 11 /lpf (0-2); Ketones,Urine Negative (Negative); Leukocyte Esterase,Urine Negative (Negative); Mucus,Urine Rare /hpf; Nitrite,Urine Negative (Negative); PH, Urine 5.5 (5.0-8.0); Protein,Urine Negative (Negative); RBC,Urine 8 /hpf (0-5); Specific Gravity,Urine 1.019 (1.001-1.035); WBC,Urine 1 /hpf (0-5)
--- NOTE | 2021-07-03 19:02 | XR ---
EXAMINATION TYPE: XR chest 1V DATE OF EXAM: 07/03/2021 6:30 PM COMPARISON: 04/04/2021 TECHNIQUE: XR chest 1V Frontal view of the chest. CLINICAL INDICATION:Male, 85 years old with history of weakness; FINDINGS: Lungs/Pleura: Low lung volumes are present. There is no evidence of pleural effusion, focal consolida tion, or pneumothorax. Similar right middle lobe hazy opacities from 04/04/2021. Pulmonary vascularity: Unremarkable. Heart/mediastinum: Cardiomediastinal silhouette is unremarkable. Musculoskeletal: No acute osseous pathology. Midline sternotomy wires are noted and stable. IMPRESSION: No acute cardiopulmonary disease/process.
--- NOTE | 2021-07-03 19:41 | CT ---
EXAMINATION TYPE: CT abdomen pelvis w con CT DLP: 1783 mGycm, Automated exposure control for dose reduction was used. DATE OF EXAM: 07/03/2021 7:14 PM COMPARISON: None. CLINICAL INDICATION:Male, 85 years old with history of abd pain, urine retention; ams, unable to obta in hx TECHNIQUE: Standard CT of the abdomen and pelvis without IV or oral contrast. Lack of IV or oral co ntrast limits evaluation of solid and hollow organ viscera. Coronal and sagittal reformats were perfo rmed. FINDINGS: LOWER CHEST: Sternotomy wires are present. ABDOMEN LIVER: Unremarkable GALLBLADDER AND BILE DUCTS: The gallbladder is surgically absent. PANCREAS: Unremarkable. SPLEEN: Unremarkable. ADRENAL GLANDS: Unremarkable. KIDNEYS AND URETERS: The renal cortices bilaterally. No evidence of hydronephrosis. Left nonobstructi ng calculus measuring up to 14 mm suboptimally visualized given motion. No evidence Al there are system with outside exam floated on this throughout treatment, evaluate for nodular-like relaxing white is somewhat the right related to No evidence of hydronephrosis or soniya al calculus. The ureters are unremarkable. PELVIS BLADDER: Nondistended with Soni catheter in place. REPRODUCTIVE: Unremarkable. ABDOMEN & PELVIS STOMACH AND BOWEL: There is a moderate hiatal hernia. Second portion duodenal diverticulum present. N o evidence of bowel obstruction. Fecaloma within the rectum measuring up to 6.9 cm. PERITONEUM: No evidence of pneumoperitoneum or free fluid. VASCULATURE: Moderate atherosclerotic calcifications are present throughout the abdominal aorta and i ts branches. MUSCULOSKELETAL: Moderate disc degeneration changes are present throughout the thoracolumbar spine. LYMPH NODES: No gross evidence for lymphadenopathy. Atelectasis of the left femoral head. SOFT TISSUE/ABDOMINAL WALL: Anterior abdominal wall hernia anchors. IMPRESSION: 1. No acute abdominal process. 2. Soni catheter in place with nondistended bladder. 3. Large stool burden within the rectum. 4. Nonobstructing left renal calculus.
[2021-07-03] MEDS ORDERED: NALOXONE 0.4 MG/ML 1 ML VIAL IV PRN (19:50)
--- NOTE | 2021-07-03 19:50 | CT ---
EXAMINATION TYPE: CT brain wo con CT DLP: 1202.4 mGycm, Automated exposure control for dose reduction was used. DATE OF EXAM: 07/03/2021 7:13 PM COMPARISON: None. CLINICAL INDICATION:Male, 85 years old with history of weakness, ams TECHNIQUE: Brain: Multiple axial CT images of the brain were obtained without IV contrast. FINDINGS: Brain: Extra-axial spaces: No abnormal extra-axial fluid collections. Ventricular system: Dilatation in proportion to cerebral atrophy. Cerebral parenchyma: Cerebral atrophy. No acute intraparenchymal hemorrhage or mass effect. The patterson -white junction is well differentiated. Scattered hypoattenuating areas are seen within the white mat ter. Cerebellum: Cerebellar atrophy Mass effect: No evidence of midline shift. Intracranial vasculature: Atherosclerotic calcifications of the intracranial vessels. Soft tissues: Normal. Calvarium/osseous structures: No depressed skull fracture. Paranasal sinuses and mastoid air cells: Mild scattered paranasal sinus disease. Visualized orbits: Orbital contents are intact. IMPRESSION: 1. No acute intracranial process. 2. Nonspecific white matter changes, likely secondary to chronic small vessel ischemic disease.
--- NOTE | 2021-07-03 19:56 | HP ---
HISTORY AND PHYSICAL DATE OF SERVICE: 07/03/2021 CHIEF COMPLAINTS: Change in mental status and weakness. HISTORY OF PRESENT ILLNESS: This 85-year-old gentleman with a past medical history of multiple medical problems, including atrial fibrillation, history of GERD, hypertension, hyperlipidemia, was recently admitted with sepsis. The patient was recently moved to an [facility] home, where the patient was found to have weakness and some difficulty in micturition. The patient was taken to [facility] and admitted for evaluation and treatment. Patient has significant dementia as well. The patient had gallbladder issues as well. A detailed history cannot be taken from the patient; most of the history is taken from my discussion with staff and discussion with the ER physician as well as discussion with the family at the bedside. PAST MEDICAL HISTORY: History of atrial fibrillation, history of recent sepsis. MEDICATIONS: Home medications are not confirmed yet; reviewed, including vitamin D3, Ultram. Doses and the rest of the medications are reviewed. ALLERGIES: NONE. Family history, social history, review of systems could not be taken because of the patient's change in mental status. PHYSICAL EXAMINATION: Patient is conscious, confused. Vitals are noted. HEENT: Conjunctivae normal. NECK: No jugular venous distention. CARDIOVASCULAR: S1, S2 muffled. RESPIRATION: Breath sounds diminished at the bases. A few scattered rhonchi. ABDOMEN: Soft, nontender. LEGS: No edema. No swelling. NERVOUS SYSTEM: Diffusely weak. LABS: WBC 7, hemoglobin 11.5. Other labs are pending. ASSESSMENT: 1. Change in mental status. Rule out urinary tract infection. 2. Urinary retention. 3. Dementia. 4. History of recent sepsis. 5. History of atrial fibrillation. 6. Gastroesophageal reflux disease. 7. Hypertension. 8. Hyperlipidemia. 9. Gait dysfunction. RECOMMENDATIONS AND DISCUSSION: In this 85-year-old gentleman who presented with multiple complex medical issues, we will await further reports, including UA, urine exam, and CT scan reports. Otherwise, will initiate the patient on empiric antibiotics at this time. Obtain cultures. Neuro checks. I would also get a neurology consultation, depending upon the reports of the CT scan. As mentioned earlier, computers are down. Will review the rest of the information when it is available online. Prognosis guarded. Discussed with family. Once again, further recommendations to follow. MMODL / IJN: [id number] /
[2021-07-03] MEDS ORDERED: DOCUSATE 100 MG CAP PO STA (20:10)
--- NOTE | 2021-07-03 20:36 | ED ---
General Adult HPI - General Chief complaint: Urogenital Stated complaint: Urinary Retension Time Seen by Provider: 07/03/21 12:53 Source: EMS, RN notes reviewed, old records reviewed Mode of arrival: EMS Limitations: no limitations - History of Present Illness Initial comments: Activation is an 85-year-old male who presents emergency department over concern for abdominal discomfort, lack of cleaning and less bowel movements. Patient has a history of dementia. Primary caregiver is who is providing most the history. Compliant with medications as he presents from a facility. Nursing staffof the patient's suprapubic tenderness and found that on bladder scan come patient over 700 mL of urine present in his bladder. No history of this. Rece monserratly was discharged from the hospital 2 months ago following sepsis secondary to gallstone, and patient had a cholecystectomy at that time. Denies any fevers, chills. No other pertinent findings for history per family. Patient cannot provide history secondary to dementia. - Related Data Home Medications Medication Instructions Recorded Confirmed Amiodarone [Cordarone] 100 mg PO DAILY@0803/30/21 07/03/21 Aspirin EC [Ecotrin Low Dose] 81 mg PO DAILY@17003/30/21 07/03/21 Atorvastatin [Lipitor] 40 mg PO HS@169903/30/21 07/03/21 Escitalopram Oxalate [Lexapro] 10 mg PO DAILY@0803/30/21 07/03/21 Levothyroxine Sodium [Synthroid] 125 mcg PO MOTUWETHFRSA@0803/30/21 07/03/21 Nitroglycerin Sl Tabs [Nitrostat] 0.4 mg SL Q5M PRN 03/30/21 07/03/21 Furosemide [Lasix] 20 mg PO DAILY@0800 04/29/21 07/03/21 Loratadine [Claritin] 10 mg PO DAILY@0804/29/21 07/03/21 ALPRAZolam [Xanax] 0.25 mg PO BID@170,199907/03/21 07/03/21 Acetaminophen Tab [Tylenol] 650 mg PO Q6H PRN 07/03/21 07/03/21 Apixaban [Eliquis] 5 mg PO BID@0800,1700 07/03/21 07/03/21 Clotrimazole [Lotrimin AF] 1 applic TOPICAL HS@199907/03/21 07/03/21 Ibuprofen [Motrin Ib] 400 mg PO Q4H PRN 07/03/21 07/03/21 Melatonin 10 mg PO HS@199907/03/21 07/03/21 Multivitamin [Multivitamins Adult 1 tab PO DAILY@0800 07/03/21 07/03/21 Gummies] Potassium Gluconate [Potassium 49.5 mg PO DAILY@0807/03/21 07/03/21 Gluconate ER] QUEtiapine FUMARATE 25 mg PO HS@199907/03/21 07/03/21 Spironolactone [Aldactone] 25 mg PO DAILY@0800 07/03/21 07/03/21 Tamsulosin [Flomax] 0.4 mg PO DAILY@17007/03/21 07/03/21 Vitamin D3 1.25mg (26063 Ut) Caps 1 cap PO DAILY@169907/03/21 07/03/21 busPIRone HCL [Buspar] 7.5 mg PO BID@0800,1500 07/03/21 07/03/21 lisinopriL [Zestril] 20 mg PO DAILY@0800 07/03/21 07/03/21 traMADol-ACETAMINOP 37.5-325MG 1 tab PO BID@0800,1700 07/03/21 07/03/21 [Ultracet] Allergies Allergy/AdvReac Type Severity Reaction Status Date / Time No Known Allergies Allergy Verified 07/03/21 16:56 Review of Systems ROS Statement: Those systems with pertinent positive or pertinent negative responses have been documented in the HPI. ROS Other: All systems not noted in ROS Statement are negative. Past Medical History Past Medical History: Atrial Fibrillation, Coronary Artery Disease (CAD), Cancer, GERD/Reflux, Hyperlipidemia, Hypertension, Memory Impairment, Myocardial Infarction (AK), Skin Disorder, Thyroid Disorder Additional Past Medical History / Comment(s): Diverticulosis,hx kidney stones, bilateral tinnitis. has episodes of shaking and feeling cold-lasts about 1/2 hr, AK x 2-3, BP has been fluctuating up and down, SOB easily, "diseased gallbla dder", psoriasis, spot on neck being checked, sepsis 03/2021, hx skin cancer on face Last Myocardial Infarction Date:: approx 3 yrs ago History of Any Multi-Drug Resistant Organisms: None Reported Past Surgical History: Appendectomy, Coronary Bypass/CABG, Heart Catheterization With Stent Additional Past Surgical History / Comment(s): 2 vessel CABG 1994, skin cancer removed from face, one cardiac stent Past Anesthesia/Blood Transfusion Reactions: No Reported Reaction Date of Last Stent Placement:: 2015 Smoking Status: Former smoker - Past Family History Father Family Medical History: Myocardial Infarction (AK) Additional Family Medical History / Comment(s): Father of a AK at an "early age" but age is unknown. Mother Family Medical History: Dementia Brother(s) Family Medical History: Cancer General Exam - General Exam Comments Initial Comments: General: Appears in no acute distress. HEAD: Normal with no signs of head trauma. EYES: PERRLA, EOMI, conjunctiva normal, no discharge. Pupils are 3 mm and equal bilaterally. ENT: Hearing grossly intact, normal oropharynx. RESPIRATORY: Clear breath sounds bilaterally. No wheezes, rales, or rhonchi. C/V: Regular rate and rhythm. S1 and S2 auscultated, no edema, peripheral pulses 2+ and intact throughout ABD: Soft. Nontender. Distention the suprapubic region. EXT: Normal range of motion, no obvious deformity SKIN: No rashes or lesions observed on exposed skin. NEURO: Alert and oriented times one, which is the patient's baseline. No focal deficits otherwise. Limitations: no limitations Medical Decision Making - Medical Decision Making Based on the patient's presentation and physical exam, I'm concerned for acute onset urinary retention. As the patient presents from home, and family is also concerned regarding a fall, we will obtain CT brain as well as CT abdomen and pelvis. Due to the large amount of urine in his bladder, Soni catheter will be placed. A total of 1200 mL of urine returned. We'll obtain broad workup including blood cultures and urine studies. Family was in agreement this plan. EKG showed no signs of acute ischemia. No acute changes. Trace studies were remarkable for a normocytic anemia with hemoglobin of 11.5 which is stable. Patient is mildly elevated creatinine of 1.3. Troponin is undetectable. Lactic acid is within normal limits. Urinalysis is unremarkable. Covid and flu swabs are negative. Patient was seen during downtime, nose and water delay in obtaining labs as well as imaging results which prolonged disposition time. CT imaging was finally obtained and read, and CT brain showed no acute intracranial process. Abdomen and pelvis CT revealed a stool Berdan, concerning for mild constipation. Patient is a nonobstructing left renal calculus. There is a [address] with nondistended bladder at this time. No other acute process. Chest x- ray showed no acute cardiopulmonary process. At this time, I reevaluated the patient. Updated family. Vital signs remained within normal limits. We will continue to admit and follow up on blood cultures. IV fluids will be continued. Urology will be consulted. Family was in agreement this plan. I spoke with Dr. Ramirez who was in agreement this plan. Patient was therefore admitted under Dr. Ramirez, who is covering for Dr. Partida , who normally covers for Dr. Ryan the patient's PCP. - Lab Data Result diagrams: 07/03/21 16:10 07/03/21 16:10 Lab Results 07/03/21 07/03/21 07/03/21 Range/Units 13:43 13:43 13:43 WBC (3.8-10.6) k/uL RBC (4.30-5.90) m/uL Hgb (13.0-17.5) gm/dL Hct (39.0-53.0) % MCV (80.0-100.0) fL MCH (25.0-35.0) pg MCHC (31.0-37.0) g/dL RDW (11.5-15.5) % Plt Count (150-450) k/uL MPV Neutrophils % % Lymphocytes % % Monocytes % % Eosinophils % % Basophils % % Neutrophils # (1.3-7.7) k/uL Lymphocytes # (1.0-4.8) k/uL Monocytes # (0-1.0) k/uL Eosinophils # (0-0.7) k/uL Basophils # (0-0.2) k/uL Sodium (137-145) mmol/L Potassium (3.5-5.1) mmol/L Chloride (98-107) mmol/L Carbon Dioxide (22-30) mmol/L Anion Gap mmol/L BUN (9-20) mg/dL Creatinine (0.66-1.25) mg/dL Est GFR (CKD-EPI)AfAm (>60 ml/min/1.73 sqM) Est GFR (CKD-EPI)NonAf (>60 ml/min/1.73 sqM) Glucose (74-99) mg/dL Plasma Lactic Acid Noel (0.7-2.0) mmol/L Calcium (8.4-10.2) mg/dL Magnesium (1.6-2.3) mg/dL Total Bilirubin (0.2-1.3) mg/dL AST (17-59) U/L ALT (4-49) U/L Alkaline Phosphatase (38-126) U/L Ammonia (<30) umol/L Troponin I (0.000-0.034) ng/mL Total Protein (6.3-8.2) g/dL Albumin (3.5-5.0) g/dL Amylase (30-110) U/L Lipase (23-300) U/L Urine Color Yellow Urine Appearance Clear (Clear) Urine pH 5.5 (5.0-8.0) Ur Specific Otho 1.019 (1.001-1.035) Urine Protein Negative (Negative) Urine Glucose (UA) Negative (Negative) Urine Ketones Negative (Negative) Urine Blood Trace H (Negative) Urine Nitrite Negative (Negative) Urine Bilirubin Negative (Negative) Urine Urobilinogen 2.0 (<2.0) mg/dL Ur Leukocyte Esterase Negative (Negative) Urine RBC 8 H (0-5) /hpf Urine WBC 1 (0-5) /hpf Hyaline Casts 11 H (0-2) /lpf Urine Mucus Rare H (None) /hpf Coronavirus (PCR) Not Detected (Not Detectd) Influenza Type A RNA Not Detected (Not Detectd) Influenza Type B (PCR) Not Detected (Not Detectd) 07/03/21 07/03/21 07/03/21 Range/Units 16:10 16:10 16:10 WBC 7.9 (3.8-10.6) k/uL RBC 3.49 L (4.30-5.90) m/uL Hgb 11.5 L (13.0-17.5) gm/dL Hct 33.6 L (39.0-53.0) % MCV 96.2 (80.0-100.0) fL MCH 32.8 (25.0-35.0) pg MCHC 34.1 (31.0-37.0) g/dL RDW 14.1 (11.5-15.5) % Plt Count 223 (150-450) k/uL MPV 8.6 Neutrophils % 70 % Lymphocytes % 19 % Monocytes % 6 % Eosinophils % 2 % Basophils % 1 % Neutrophils # 5.5 (1.3-7.7) k/uL Lymphocytes # 1.5 (1.0-4.8) k/uL Monocytes # 0.5 (0-1.0) k/uL Eosinophils # 0.2 (0-0.7) k/uL Basophils # 0.0 (0-0.2) k/uL Sodium 134 L (137-145) mmol/L Potassium 4.7 (3.5-5.1) mmol/L Chloride 100 (98-107) mmol/L Carbon Dioxide 23 (22-30) mmol/L Anion Gap 11 mmol/L BUN 50 H (9-20) mg/dL Creatinine 1.30 H (0.66-1.25) mg/dL Est GFR (CKD-EPI)AfAm 58 (>60 ml/min/1.73 sqM) Est GFR (CKD-EPI)NonAf 50 (>60 ml/min/1.73 sqM) Glucose 101 H (74-99) mg/dL Plasma Lactic Acid Noel (0.7-2.0) mmol/L Calcium 8.7 (8.4-10.2) mg/dL Magnesium 2.0 (1.6-2.3) mg/dL Total Bilirubin 0.8 (0.2-1.3) mg/dL AST 23 (17-59) U/L ALT 26 (4-49) U/L Alkaline Phosphatase 61 (38-126) U/L Ammonia (<30) umol/L Troponin I <0.012 (0.000-0.034) ng/mL Total Protein 5.9 L (6.3-8.2) g/dL Albumin 3.6 (3.5-5.0) g/dL Amylase 62 (30-110) U/L Lipase 143 (23-300) U/L Urine Color Urine Appearance (Clear) Urine pH (5.0-8.0) Ur Specific Otho (1.001-1.035) Urine Protein (Negative) Urine Glucose (UA) (Negative) Urine Ketones (Negative) Urine Blood (Negative) Urine Nitrite (Negative) Urine Bilirubin (Negative) Urine Urobilinogen (<2.0) mg/dL Ur Leukocyte Esterase (Negative) Urine RBC (0-5) /hpf Urine WBC (0-5) /hpf Hyaline Casts (0-2) /lpf Urine Mucus (None) /hpf Coronavirus (PCR) (Not Detectd) Influenza Type A RNA (Not Detectd) Influenza Type B (PCR) (Not Detectd) 07/03/21 Range/Units 16:10 WBC (3.8-10.6) k/uL RBC (4.30-5.90) m/uL Hgb (13.0-17.5) gm/dL Hct (39.0-53.0) % MCV (80.0-100.0) fL MCH (25.0-35.0) pg MCHC (31.0-37.0) g/dL RDW (11.5-15.5) % Plt Count (150-450) k/uL MPV Neutrophils % % Lymphocytes % % Monocytes % % Eosinophils % % Basophils % % Neutrophils # (1.3-7.7) k/uL Lymphocytes # (1.0-4.8) k/uL Monocytes # (0-1.0) k/uL Eosinophils # (0-0.7) k/uL Basophils # (0-0.2) k/uL Sodium (137-145) mmol/L Potassium (3.5-5.1) mmol/L Chloride (98-107) mmol/L Carbon Dioxide (22-30) mmol/L Anion Gap mmol/L BUN (9-20) mg/dL Creatinine (0.66-1.25) mg/dL Est GFR (CKD-EPI)AfAm (>60 ml/min/1.73 sqM) Est GFR (CKD-EPI)NonAf (>60 ml/min/1.73 sqM) Glucose (74-99) mg/dL Plasma Lactic Acid Noel 1.7 (0.7-2.0) mmol/L Calcium (8.4-10.2) mg/dL Magnesium (1.6-2.3) mg/dL Total Bilirubin (0.2-1.3) mg/dL AST (17-59) U/L ALT (4-49) U/L Alkaline Phosphatase (38-126) U/L Ammonia <9 (<30) umol/L Troponin I (0.000-0.034) ng/mL Total Protein (6.3-8.2) g/dL Albumin (3.5-5.0) g/dL Amylase (30-110) U/L Lipase (23-300) U/L Urine Color Urine Appearance (Clear) Urine pH (5.0-8.0) Ur Specific Otho (1.001-1.035) Urine Protein (Negative) Urine Glucose (UA) (Negative) Urine Ketones (Negative) Urine Blood (Negative) Urine Nitrite (Negative) Urine Bilirubin (Negative) Urine Urobilinogen (<2.0) mg/dL Ur Leukocyte Esterase (Negative) Urine RBC (0-5) /hpf Urine WBC (0-5) /hpf Hyaline Casts (0-2) /lpf Urine Mucus (None) /hpf Coronavirus (PCR) (Not Detectd) Influenza Type A RNA (Not Detectd) Influenza Type B (PCR) (Not Detectd) - EKG Data -: EKG Interpreted by Me EKG Comments: 12-lead Electrocardiogram Interpretation Note EKG was reviewed and interpreted by myself. 12-lead ECG performed at 1522 is interpreted by me as revealing normal sinus rhythm at a rate of 69 beats per minute. [place] is normal. [place] interval is 120 ms. QR restorations 115 ms. QTC is 442 ms.. There were no ST or T wave abnormalities to suggest myocardial ischemia or injury. R wave progression across the precordium was satisfactory. By my interpretation this EKG is non-diagnostic for acute ischemia. Disposition Clinical Impression: Urinary retention, Constipation, Soni catheter in place Disposition: ADMITTED IP TO THIS HOSP Condition: Stable Time of Disposition: 19:40
[2021-07-03] MEDS: MELATONIN 5 MG TABLET PO SCH (21:53)
[2021-07-03] MEDS: ALPRAZolam 0.25 MG TAB PO SCH (21:53)
[2021-07-03] MEDS: SODIUM CHLORIDE 0.9% 1,000 ML IV SCH (21:53)
[2021-07-03] MEDS: QUEtiapine 25 MG TAB PO SCH (21:53)
[2021-07-04] MEDS: traMADol-ACETAMINOP 37.5-325MG 1 EACH TAB PO SCH ×2 (07:44→17:03)
[2021-07-04] MEDS: APIXABAN 5 MG TAB PO SCH ×2 (07:44→17:03)
[2021-07-04] MEDS: SPIRONOLACTONE 25 MG TAB PO SCH (07:45)
[2021-07-04] MEDS: busPIRone HCl 5 MG TAB PO SCH ×2 (07:45→17:03)
[2021-07-04] MEDS: FUROSEMIDE 20 MG TAB PO SCH (07:45)
[2021-07-04] MEDS: lisinopriL 20 MG TAB PO SCH (07:45)
[2021-07-04] MEDS: LEVOTHYROXINE 125 MCG TAB PO SCH (07:46)
[2021-07-04] MEDS: SODIUM CHLORIDE 0.9% 1,000 ML IV SCH ×2 (07:46→18:13)
[2021-07-04] MEDS: AMIODARONE 100 MG TAB PO SCH (07:46)
[2021-07-04] MEDS: ESCITALOPRAM 10 MG TAB PO SCH (07:46)
--- NOTE | 2021-07-04 08:17 | P.GSCN ---
History of Present Illness Consult date: 07/04/21 Reason for Consult: Urinary retention Requesting physician: Juanita Ramirez History of present illness: The patient is an 85-year-old white male with a history of dementia. He was sent to the ER after the AF Jimbo noted that he had not had a bowel movement or avoided for 24 hours. Bladder scan showed evidence of urinary retention, so a Soni catheter was placed with return of 1200 mL of urine. The history was obtained from the chart, as the patient is unable to provide history. He was hospitalized earlier this year with sepsis due to a gallstone, and underwent a cholecystectomy at that time. He was seen by Dr. Wagner during that hospitalization for urinary retention. It was recommended by him that the patie nt be placed on tamsulosin, and his believes he has been taking it. She states that his overall condition has deteriorated over the past week, and that she desires he be placed under hospice care. Review of Systems - Gastrointestinal Reports constipation - Genitourinary Reports as per HPI Past Medical History Past Medical History: Atrial Fibrillation, Coronary Artery Disease (CAD), Cancer, Dementia, GERD/Reflux, Hyperlipidemia, Hypertension, Memory Impairment, Myocardial Infarction ([place]), Skin Disorder, Thyroid Disorder Additional Past Medical History / Comment(s): Diverticulosis,hx kidney stones, bilateral tinnitis. "diseased gallbladder", psoriasis, spot on neck being checked, sepsis 03/2021, hx skin cancer on face Last Myocardial Infarction Date:: approx 3 yrs ago History of Any Multi-Drug Resistant Organisms: None Reported Past Surgical History: Appendectomy, Coronary Bypass/CABG, Heart Catheterization With Stent Additional Past Surgical History / Comment(s): 2 vessel CABG 1994, skin cancer removed from face, one cardiac stent Past Anesthesia/Blood Transfusion Reactions: No Reported Reaction Date of Last Stent Placement:: 2015 Past Psychological History: No Psychological Hx Reported Additional Psychological History / Comment(s): dementia Smoking Status: Former smoker Additional Past Alcohol Use History / Comment(s): Pt smoked from 4412-2024 approximately. Past Drug Use History: None Reported - Past Family History Father Family Medical History: Myocardial Infarction ([place]) Additional Family Medical History / Comment(s): Father of a [place] at an "early age" but age is unknown. Mother Family Medical History: Dementia Brother(s) Family Medical History: Cancer Medications and Allergies Home Medications Medication Instructions Recorded Confirmed Type Amiodarone [Cordarone] 100 mg PO DAILY@0803/30/21 07/03/21 History Aspirin EC [Ecotrin Low Dose] 81 mg PO DAILY@169903/30/21 07/03/21 History Atorvastatin [Lipitor] 40 mg PO HS@169903/30/21 07/03/21 History Escitalopram Oxalate [Lexapro] 10 mg PO DAILY@79903/30/21 07/03/21 History Levothyroxine Sodium [Synthroid] 125 mcg PO MOTUWETHFRSA@79903/30/21 07/03/21 History Nitroglycerin Sl Tabs [Nitrostat] 0.4 mg SL Q5M PRN 03/30/21 07/03/21 History Furosemide [Lasix] 20 mg PO DAILY@79904/29/21 07/03/21 History Loratadine [Claritin] 10 mg PO DAILY@79904/29/21 07/03/21 History ALPRAZolam [Xanax] 0.25 mg PO BID@1699,199907/03/21 07/03/21 History Acetaminophen Tab [Tylenol] 650 mg PO Q6H PRN 07/03/21 07/03/21 History Apixaban [Eliquis] 5 mg PO BID@08,169907/03/21 07/03/21 History Clotrimazole [Lotrimin AF] 1 applic TOPICAL HS@199907/03/21 07/03/21 History Ibuprofen [Motrin Ib] 400 mg PO Q4H PRN 07/03/21 07/03/21 History Melatonin 10 mg PO HS@199907/03/21 07/03/21 History Multivitamin [Multivitamins Adult 1 tab PO DAILY@79907/03/21 07/03/21 History Gummies] Potassium Gluconate [Potassium 49.5 mg PO DAILY@79907/03/21 07/03/21 History Gluconate ER] QUEtiapine FUMARATE 25 mg PO HS@199907/03/21 07/03/21 History Spironolactone [Aldactone] 25 mg PO DAILY@79907/03/21 07/03/21 History Tamsulosin [Flomax] 0.4 mg PO DAILY@169907/03/21 07/03/21 History Vitamin D3 1.25mg (53926 Ut) Caps 1 cap PO DAILY@1700 07/03/21 07/03/21 History busPIRone HCL [Buspar] 7.5 mg PO BID@0800,1500 07/03/21 07/03/21 History lisinopriL [Zestril] 20 mg PO DAILY@0800 07/03/21 07/03/21 History traMADol-ACETAMINOP 37.5-325MG 1 tab PO BID@0800,1700 07/03/21 07/03/21 History [Ultracet] Allergies Allergy/AdvReac Type Severity Reaction Status Date / Time No Known Allergies Allergy Verified 07/03/21 16:56 Surgical - Exam Vital Signs Temp Pulse Resp BP Pulse Ox 98.4 F 98 16 101/64 93 L 07/03/21 22:07 07/03/21 22:07 07/03/21 22:07 07/03/21 22:07 07/03/21 22:07 - General well developed, well nourished, no distress - Respiratory normal respiratory effort Results - Labs 07/03/21 16:10 07/03/21 16:10 Abnormal Lab Results - Last 24 Hours (Table) 07/03/21 07/03/21 07/03/21 Range/Units 13:43 16:10 16:10 RBC 3.49 L (4.30-5.90) m/uL Hgb 11.5 L (13.0-17.5) gm/dL Hct 33.6 L (39.0-53.0) % Sodium 134 L (137-145) mmol/L BUN 50 H (9-20) mg/dL Creatinine 1.30 H (0.66-1.25) mg/dL Glucose 101 H (74-99) mg/dL Total Protein 5.9 L (6.3-8.2) g/dL Urine Blood Trace H (Negative) Urine RBC 8 H (0-5) /hpf Hyaline Casts 11 H (0-2) /lpf Urine Mucus Rare H (None) /hpf Diabetes panel 07/03/21 Range/Units 16:10 Sodium 134 L (137-145) mmol/L Potassium 4.7 (3.5-5.1) mmol/L Chloride 100 (98-107) mmol/L Carbon Dioxide 23 (22-30) mmol/L BUN 50 H (9-20) mg/dL Creatinine 1.30 H (0.66-1.25) mg/dL Glucose 101 H (74-99) mg/dL Calcium 8.7 (8.4-10.2) mg/dL AST 23 (17-59) U/L ALT 26 (4-49) U/L Alkaline Phosphatase 61 (38-126) U/L Total Protein 5.9 L (6.3-8.2) g/dL Albumin 3.6 (3.5-5.0) g/dL Calcium panel 07/03/21 Range/Units 16:10 Calcium 8.7 (8.4-10.2) mg/dL Albumin 3.6 (3.5-5.0) g/dL Pituitary panel 07/03/21 Range/Units 16:10 Sodium 134 L (137-145) mmol/L Potassium 4.7 (3.5-5.1) mmol/L Chloride 100 (98-107) mmol/L Carbon Dioxide 23 (22-30) mmol/L BUN 50 H (9-20) mg/dL Creatinine 1.30 H (0.66-1.25) mg/dL Glucose 101 H (74-99) mg/dL Calcium 8.7 (8.4-10.2) mg/dL Adrenal panel 07/03/21 Range/Units 16:10 Sodium 134 L (137-145) mmol/L Potassium 4.7 (3.5-5.1) mmol/L Chloride 100 (98-107) mmol/L Carbon Dioxide 23 (22-30) mmol/L BUN 50 H (9-20) mg/dL Creatinine 1.30 H (0.66-1.25) mg/dL Glucose 101 H (74-99) mg/dL Calcium 8.7 (8.4-10.2) mg/dL Total Bilirubin 0.8 (0.2-1.3) mg/dL AST 23 (17-59) U/L ALT 26 (4-49) U/L Alkaline Phosphatase 61 (38-126) U/L Total Protein 5.9 L (6.3-8.2) g/dL Albumin 3.6 (3.5-5.0) g/dL Assessment and Plan (1) Urinary retention Current Visit: Yes Status: Acute Code(s): R33.9 - RETENTION OF URINE, UNSPECIFIED SNOMED Code(s): 317774765 Plan: In summary, the patient has recurrent or persistent urinary retention. As stated, his requests that he be placed under hospice care. It would be jimbo sonable to leave the Soni catheter in place for comfort. Time with Patient: Less than 30
[2021-07-04 08:50] LABS: Basophils # (A) 0.05 X 10*3/uL (0.00-0.10); Basophils % (A) 0.8 %; Eosinophils # (A) 0.17 X 10*3/uL (0.04-0.35); Eosinophils % (A) 2.8 %; HCT 27.2 % (39.6-50.0); Immature Grans, Automated 0.5 %; Lymphocytes # (A) 1.15 X 10*3/uL (0.90-5.00); Lymphocytes % (A) 18.8 %; MCH 31.1 pg (27.0-32.0); MCHC 33.1 g/dL (32.0-37.0); MCV 94.1 fL (80.0-97.0); Mean Platelet Volume 11.2 fL (9.5-12.2); Monocytes % (A) 9.8 %; NRBC Per 100 WBC 0 /100 WBCS (0.0-0.0); Neutrophils # (A) 4.13 X 10*3/uL (1.80-7.70); Neutrophils % (A) 67.3 %; Platelet Count 170 X 10*3/uL (140-440); RBC 2.89 X 10*6/uL (4.40-5.60); RDW 13.6 % (11.5-14.5); WBC 6.13 X 10*3/uL (4.50-10.00)
[2021-07-04 09:50] LABS: Albumin 3.4 g/dL (3.8-4.9); Albumin/Globulin Ratio 2.13 (1.60-3.17); Anion Gap 8.9 mmol/L (10.00-18.00); BUN/Creat Ratio 29.67 Ratio (12.00-20.00); Blood Urea Nitrogen 35.6 mg/dL (9.0-27.0); Calcium 8.4 mg/dL (8.7-10.3); Carbon Dioxide 22.1 mmol/L (20.0-27.5); Globulin 1.6 g/dL (1.6-3.3); Non-African American GFR(CKD) 55.2 (60.0-200.0); Potassium 4.5 mmol/L (3.5-5.5); Total Bilirubin 0.7 mg/dL (0.30-1.20)
--- NOTE | 2021-07-04 11:46 | CDI ---
Documentation Clarification Form Date: 07/04/2021 11:23:17 AM From: Carissa Coker RN, CCDS Admit Date: 07/03/2021 07:50:00 PM Patient Name: Natalia Justin Visit Number: [id number] Discharge Date: ATTENTION: The Clinical Documentation Specialists (CDI) and [facility] Coding Staff appreciate your assistance in clarifying documentation. Please respond to the clarification below the line at the bottom and electronically sign. The CDI & [facility] Coding staff will review the response and follow-up if needed. Please note: Queries are made part of the Legal Health Record. If you have any questions, please contact the author of this message via ITS. Dr. Juanita Ramirez Atrial Fibrillation is documented in the past medical history and H/P. Additional clarification regarding the type of atrial fibrillation is requested. History/Risk Factors: Dementia, Atrial fibrillation, Hypertension, GERD, Hyperlipidemia Clinical Indicators: 85-year-old male present to ED with urinary retention. He has a history of atrial fibrillation and ongoing treatment with Eliquis 07/03 EKG/telemetry: Sinus rhythm, incomplete right bundle branch block. Vent rate 69 bpm Treatment: ASA [81 MG PO Daily Eliquis 5MG PO BID, Cardarone 100MG PO Daily Please clarify the type of atrial fibrillation, if known: [ ] Chronic [ ] Permanent [ ] Paroxysmal [ ] Persistent [ ] Other, please specify [ ] Unable to determine (Template Last Revised: June 2020) Chronic MTDD
[2021-07-04] MEDS ORDERED: ASPIRIN 81 MG PO SCH (17:00)
[2021-07-04] MEDS ORDERED: CHOLECALCIFEROL 125 MCG (5000 IU) TABLET PO SCH (17:00)
[2021-07-04] MEDS ORDERED: TAMSULOSIN 0.4 MG CAP.ER.24H PO SCH (17:00)
[2021-07-04] MEDS ORDERED: ATORVASTATIN 40 MG TAB PO SCH (17:00)
[2021-07-04] MEDS: ALPRAZolam 0.25 MG TAB PO SCH ×2 (17:02→19:56)
[2021-07-04] MEDS: MELATONIN 5 MG TABLET PO SCH (19:56)
[2021-07-04] MEDS: QUEtiapine 25 MG TAB PO SCH (19:56)
[2021-07-05] MEDS: SODIUM CHLORIDE 0.9% 1,000 ML IV SCH ×2 (01:07→13:30)
[2021-07-05 05:46] VITALS: BP 98/58; PULSE 63; RESP 18; TEMP 97.5
[2021-07-05] MEDS: traMADol-ACETAMINOP 37.5-325MG 1 EACH TAB PO SCH (09:37)
[2021-07-05] MEDS: SPIRONOLACTONE 25 MG TAB PO SCH (09:39)
[2021-07-05] MEDS: lisinopriL 20 MG TAB PO SCH (09:39)
[2021-07-05] MEDS: LEVOTHYROXINE 125 MCG TAB PO SCH (09:39)
[2021-07-05] MEDS: APIXABAN 5 MG TAB PO SCH (09:39)
[2021-07-05] MEDS: busPIRone HCl 5 MG TAB PO SCH (09:40)
[2021-07-05] MEDS: AMIODARONE 100 MG TAB PO SCH (09:40)
[2021-07-05] MEDS: ESCITALOPRAM 10 MG TAB PO SCH (09:40)
[2021-07-05] MEDS: FUROSEMIDE 20 MG TAB PO SCH (09:40)
[2021-07-05] MEDS ORDERED: ALPRAZolam 0.25 MG TAB PO STA (11:57)
--- NOTE | 2021-07-05 14:43 | P.DS ---
Providers Date of admission: 07/03/21 19:50 Expected date of discharge: 07/05/21 Attending physician: Juanita Ramirez Consults: 07/03/21 19:56 Consult Physician Routine Consulting Provider: Uriel Porter Consult Reason/Comments: new onset urinary retention Do you want consulting provider notified?: Yes, Notify in am Primary care physician: Mark Ryan Hospital Course: Final Diagnosis change in mental status, rule out urinary tract infection, present on admission paroxysmal atrial fibrillation urinary retention dementia HIstory of recent sepsis GERD hypertension hyperlipidemia gait dysfunction no code Discharge disposition Patient is being discharged in a stable condition with guarded prognosis to hospice cache in [place] for comfort care. Family wishes to discuss with physician in [place] about continuiing his meds or discontinuing. Total time taken is greater than 35 minutes. Hospital course This is a 85-year-old male who was recently admitted with increasing weakness and was at a snf with features of possible UTI and was being closely monitored. Per nursing staff noted dark stools and patient had been on eliquis and aspirin which is on hold. Patient was started on IV abx and family had discussed with case management and hospice about going to hospice house. Patient will be going to [facility] today and is at bedside. Patient ate all of his breakfast this morning and denies abdominal pain or nausea or vomiting. Currently no reports of chest pain, shortness of breath, or palpitations. Patient is afebrile. No reports of nausea or vomiting and patient is tolerating diet. Patient will be going to [facility] today. Guarded prognosis. Physical exam: Gen: This is a 85-year-old male awake, alert and oriented 1-2, well-developed, well-nourished HEENT: Head is atraumatic, normocephalic. Pupils equal, round. Sclerae is anicteric. NECK: Supple. No JVD. No lymphadenopathy. No thyromegaly. LUNGS: Clear to auscultation. No wheezes or rhonchi. No intercostal retractions. HEART: Regular rate and rhythm. No murmur. ABDOMEN: Soft. Bowel sounds are present. No masses. No tenderness. EXTREMITIES: No pedal edema. No calf tenderness. NEUROLOGICAL: Patient is awake, alert and oriented x2. Diffuse weakness Please refer to medication reconciliation sheet for a list of medications. The impression and plan of care has been dictated by Alice Giraldo, Nurse Practitioner as directed. Dr. Cheryl MD I have performed a history and examination and MDM of this patient, discussed the same with the dictator, and agree with the dictator's assessment and plan as written ,documented as a scribe. Based on total visit time, I have performed more than 50% of the visit. Patient Condition at Discharge: Stable Plan - Discharge Summary New Discharge Prescriptions: Continue Atorvastatin [Lipitor] 40 mg PO HS@1700 Furosemide [Lasix] 20 mg PO DAILY@0800 Loratadine [Claritin] 10 mg PO DAILY@0800 Ibuprofen [Motrin Ib] 400 mg PO Q4H PRN PRN Reason: Pain Potassium Gluconate [Potassium Gluconate ER] 49.5 mg PO DAILY@0800 Melatonin 10 mg PO HS@2000 lisinopriL [Zestril] 20 mg PO DAILY@0800 Clotrimazole [Lotrimin AF] 1 applic TOPICAL HS@2000 busPIRone HCL [Buspar] 7.5 mg PO BID@0800,1500 ALPRAZolam [Xanax] 0.25 mg PO BID@1700,2000 Escitalopram Oxalate [Lexapro] 10 mg PO DAILY@0800 Levothyroxine Sodium [Synthroid] 125 mcg PO MOTUWETHFRSA@0800 Amiodarone [Cordarone] 100 mg PO DAILY@0800 Nitroglycerin Sl Tabs [Nitrostat] 0.4 mg SL Q5M PRN PRN Reason: Chest Pain Vitamin D3 1.25mg (49478 Ut) Caps 1 cap PO DAILY@1700 Acetaminophen Tab [Tylenol] 650 mg PO Q6H PRN PRN Reason: Pain traMADol-ACETAMINOP 37.5-325MG [Ultracet] 1 tab PO BID@0800,1700 Tamsulosin [Flomax] 0.4 mg PO DAILY@1700 Spironolactone [Aldactone] 25 mg PO DAILY@0800 QUEtiapine FUMARATE 25 mg PO HS@2000 Multivitamin [Multivitamins Adult Gummies] 1 tab PO DAILY@0800 Discontinued Aspirin EC [Ecotrin Low Dose] 81 mg PO DAILY@1700 Apixaban [Eliquis] 5 mg PO BID@0800,1700 Discharge Medication List Amiodarone [Cordarone] 100 mg PO DAILY@0800 03/30/21 [History] Atorvastatin [Lipitor] 40 mg PO HS@169903/30/21 [History] Escitalopram Oxalate [Lexapro] 10 mg PO DAILY@0803/30/21 [History] Levothyroxine Sodium [Synthroid] 125 mcg PO MOTUWETHFRSA@0803/30/21 [History] Nitroglycerin Sl Tabs [Nitrostat] 0.4 mg SL Q5M PRN 03/30/21 [History] Furosemide [Lasix] 20 mg PO DAILY@0804/29/21 [History] Loratadine [Claritin] 10 mg PO DAILY@79904/29/21 [History] ALPRAZolam [Xanax] 0.25 mg PO BID@1699,199907/03/21 [History] Acetaminophen Tab [Tylenol] 650 mg PO Q6H PRN 07/03/21 [History] Clotrimazole [Lotrimin AF] 1 applic TOPICAL HS@199907/03/21 [History] Ibuprofen [Motrin Ib] 400 mg PO Q4H PRN 07/03/21 [History] Melatonin 10 mg PO HS@199907/03/21 [History] Multivitamin [Multivitamins Adult Gummies] 1 tab PO DAILY@0807/03/21 [History] Potassium Gluconate [Potassium Gluconate ER] 49.5 mg PO DAILY@0807/03/21 [History] QUEtiapine FUMARATE 25 mg PO HS@199907/03/21 [History] Spironolactone [Aldactone] 25 mg PO DAILY@0807/03/21 [History] Tamsulosin [Flomax] 0.4 mg PO DAILY@169907/03/21 [History] Vitamin D3 1.25mg (07916 Ut) Caps 1 cap PO DAILY@169907/03/21 [History] busPIRone HCL [Buspar] 7.5 mg PO BID@0800,1500 07/03/21 [History] lisinopriL [Zestril] 20 mg PO DAILY@0807/03/21 [History] traMADol-ACETAMINOP 37.5-325MG [Ultracet] 1 tab PO BID@0800,1700 07/03/21 [History] Follow up Appointment(s)/Referral(s): Mark Ryan MD [Primary Care Provider] - 1 Week Activity/Diet/Wound Care/Special Instructions: Patient is going to hospice house in [place] Patient and family will discuss resuming medications and med rec when at the hospice house Activity as tolerated continue current diet hold eliquis and aspirin due to dark stools Discharge Disposition: OTHER INSTITUTION NOT DEFINED
== END 2021-07-05 13:30 | disposition hospice, inpatient (51) | DRG 696 ==
LOC: EC 12:53 → 5NMEDONC 19:50
PROVIDERS: ADMIT Hospitalist; ATTEND Hospitalist
DX: R33.9 Retention of urine, unspecified (principal); I48.20 Chronic atrial fibrillation, unspecified; K59.00 Constipation, unspecified; Z20.822 Contact with and (suspected) exposure to COVID-19; F03.90 Unspecified dementia, unspecified severity, without behavioral disturbance, psychotic disturbance, mood disturbance, and anxiety; E78.5 Hyperlipidemia, unspecified; I10 Essential (primary) hypertension; I25.10 Atherosclerotic heart disease of native coronary artery without angina pectoris; R26.9 Unspecified abnormalities of gait and mobility; K21.9 Gastro-esophageal reflux disease without esophagitis; H93.13 Tinnitus, bilateral; I48.0 Paroxysmal atrial fibrillation; N20.0 Calculus of kidney; Z51.5 Encounter for palliative care; I25.2 Old myocardial infarction; Z79.899 Other long term (current) drug therapy; Z79.890 Hormone replacement therapy; Z79.82 Long term (current) use of aspirin; Z79.01 Long term (current) use of anticoagulants; Z95.5 Presence of coronary angioplasty implant and graft; Z95.1 Presence of aortocoronary bypass graft; Z86.19 Personal history of other infectious and parasitic diseases; Z87.891 Personal history of nicotine dependence; Z87.442 Personal history of urinary calculi; Z85.828 Personal history of other malignant neoplasm of skin; Z82.49 Family history of ischemic heart disease and other diseases of the circulatory system
CPT/HCPCS: 36415; 51702; 70450; 71045; 74177; 80053; 81001; 82140; 82150; 83605; 83690; 83735; 84484; 85025; 87040; 87502; 87635; 93005; 96374; 99285